=== PATIENT | female | born 1940 | race Caucasian/White ===

== ENCOUNTER → 2018-08-03 11:31 | Outpatient (BNVA) | payer MEDICARE, MEDICAID, SELFPAY | PROVIDERS: PCP Family Medicine; Visit Provider Orthopaedic Surgery | DX: M19.011 Primary osteoarthritis, right shoulder (principal) | CPT/HCPCS: 20610; 99213; J1040 ==

== ENCOUNTER 2018-11-03 02:07 | Outpatient (CLI) | payer MEDICARE, MEDICAID, SELFPAY ==
[2018-11-03 13:01] LABS: HCT 39.8 % (36.0-46.0); HGB 12.8 g/dL (12.0-15.5); Mean Corp. HGB Concentration 32.2 g/dL (32.0-36.0); Mean Corpuscular Hemoglobin 34.9 pg (27.0-33.0); Mean Corpuscular Volume 108.4 fL (80-95); Mean Platelet Volume 9.2 fL (8.0-11.0); Platelet Count 295 x1000/uL (130-400); RBC 3.67 m/cumm (4.00-5.20); RBC Distribution Width 11.7 % (11.7-14.6); White Blood Cell Count 8.64 k/cumm (4.4-10.8)
[2018-11-03 13:39] LABS: ALT 26 U/L (12-78); AST 18 U/L (15-37); Alkaline Phosphatase 67 U/L (46-116); Anion Gap 7.2 mmol/L (3-11); BUN 23 mg/dL (7-18); Bilirubin, Total 1.3 mg/dL (0.2-1.0); CO2 29.8 mmol/L (21.0-32.0); CREATININE 0.81 mg/dL (0.55-1.02); Calcium 9.3 mg/dL (8.5-10.1); Chloride 105 mmol/L (98-107); Glucose 94 mg/dL (70-100); Sodium 142 mmol/L (136-145); TSH (W/Ref FT4) 0.95 uIU/mL (0.358-3.74); Vitamin B12 361 pg/mL (193-986)
== END 2018-11-03 02:27 ==
PROVIDERS: PCP Family Medicine; Visit Provider Family Medicine
DX: E55.9 Vitamin D deficiency, unspecified (principal); R53.1 Weakness; E78.5 Hyperlipidemia, unspecified; I10 Essential (primary) hypertension; I63.9 Cerebral infarction, unspecified
CPT/HCPCS: 36415; 80053; 82306; 85027; 82607; 84443

== ENCOUNTER → 2018-11-05 13:02 | Outpatient (BNVA) | payer MEDICARE, MEDICAID, SELFPAY | PROVIDERS: PCP Family Medicine; Referring Provider Family Medicine; Visit Provider Orthopaedic Surgery | DX: M19.011 Primary osteoarthritis, right shoulder (principal); I10 Essential (primary) hypertension | CPT/HCPCS: 20610; 99211; 99213; J1040 ==

== ENCOUNTER 2018-12-25 00:55 | Outpatient (CLI) | payer MEDICARE, MEDICAID, SELFPAY ==
[2018-12-25 11:25] LABS: HCT 38.1 % (36.0-46.0); HGB 12.4 g/dL (12.0-15.5); Mean Corp. HGB Concentration 32.5 g/dL (32.0-36.0); Mean Corpuscular Hemoglobin 35.5 pg (27.0-33.0); Mean Corpuscular Volume 109.2 fL (80-95); Mean Platelet Volume 8.9 fL (8.0-11.0); Platelet Count 324 x1000/uL (130-400); RBC 3.49 m/cumm (4.00-5.20); White Blood Cell Count 7.61 k/cumm (4.4-10.8)
[2018-12-25 11:29] LABS: Bilirubin Negative (Negative); Blood Negative (Negative); Clarity Cloudy; Glucose Negative (Negative); Ketones Trace mg/dL (Negative); Leukocyte Esterase Negative (Negative); Nitrite Negative (Negative); Specific Gravity >= 1.030 (1.005-1.025); Urobilinogen 0.2 EU/dL (Up TO 0.2); pH 5.5 (5-8)
[2018-12-25 11:38] LABS: ALT 29 U/L (12-78); AST 17 U/L (15-37); Albumin 3.7 g/dL (3.4-5.0); Alkaline Phosphatase 65 U/L (46-116); Anion Gap 9.5 mmol/L (3-11); BUN 26 mg/dL (7-18); Bilirubin, Total 1.3 mg/dL (0.2-1.0); CO2 29.5 mmol/L (21.0-32.0); CREATININE 0.98 mg/dL (0.55-1.02); Calcium 9.1 mg/dL (8.5-10.1); Chloride 106 mmol/L (98-107); Estimated GFR 55.03 (mL/min/1.73m2); Glucose 103 mg/dL (70-100); Magnesium 2.1 mg/dL (1.8-2.4); Potassium 3.5 mmol/L (3.5-5.1); Sodium 145 mmol/L (136-145)
[2018-12-25 11:42] LABS: Epithelial Cells Moderate HPF (Negative); RBC Negative (0-2); WBC 0-2 HPF (0-5)
[2018-12-25 11:43] LABS: Bacteria Rare HPF (Negative)
[2018-12-25 11:44] LABS: C & S Indicated? No; Casts Negative LPF (Negative); Crystals Mod Calcium Oxalate HPF (Negative); Mucus Moderate (Negative)
[2018-12-25 12:03] LABS: Folate > 20.0 ng/mL (8.6-20.0); Vitamin B12 347 pg/mL (193-986)
[2018-12-25 12:20] LABS: ESR 29 MM/HR (0-30)
== END 2018-12-25 01:15 ==
PROVIDERS: Family Medicine; PCP Family Medicine; Visit Provider Family Medicine
DX: I10 Essential (primary) hypertension (principal); R51 Headache; D75.89 Other specified diseases of blood and blood-forming organs; Z86.59 Personal history of other mental and behavioral disorders
CPT/HCPCS: 36415; 80053; 85027; 85652; 81003; 81015; 82607; 82746; 83735

== ENCOUNTER 2019-01-25 01:28 | Outpatient (CLI) | payer MEDICARE, MEDICAID, SELFPAY ==
--- NOTE | 2019-01-25 13:14 | DI.RAD_ITS ---
SYMPTOM/DIAGNOSIS: LOW BACK PAIN, S/P FALL ,M54.5 SACRUM AND COCCYX: Comparison is made with lumbar spine dated 11/08/16. The sacrum is partially obscured by overlying bowel gas and stool. On the lateral view, there is a question of a fracture at the distal sacrum at the sacrococcygeal junction. The SI joints appear intact. IMPRESSION: Question of a distal sacral fracture. LUMBAR SPINE: Comparison is made with 11/08/16. No compression fractures are seen. There is stable severe disc space narrowing from L 2-3 through L 5-S 1. There are stable L 4-5 spondylolisthesis secondary to facet degenerative changes. A right hip prosthesis is noted. IMPRESSION: Stable degenerative changes from L 2-3 through L 5-S 1.
== END 2019-01-25 01:48 ==
PROVIDERS: PCP Family Medicine; Visit Provider Nurse Practitioner Family
DX: M54.5 Low back pain (principal); M51.37 Other intervertebral disc degeneration, lumbosacral region; M53.3 Sacrococcygeal disorders, not elsewhere classified; Z96.641 Presence of right artificial hip joint
CPT/HCPCS: 72110; 72220

== ENCOUNTER → 2019-01-28 10:58 | Outpatient (BNVA) | payer MEDICARE, MEDICAID, SELFPAY | PROVIDERS: PCP Family Medicine; Referring Provider Family Medicine; Visit Provider Orthopaedic Surgery | DX: M17.11 Unilateral primary osteoarthritis, right knee (principal); M17.12 Unilateral primary osteoarthritis, left knee; I10 Essential (primary) hypertension; M19.011 Primary osteoarthritis, right shoulder | CPT/HCPCS: 20610; 99211; 99213; J1040 ==

== ENCOUNTER → 2019-02-11 12:57 | Outpatient (BNVA) | payer MEDICARE, MEDICAID, SELFPAY | PROVIDERS: PCP Family Medicine; Referring Provider Family Medicine; Visit Provider Orthopaedic Surgery | DX: M19.011 Primary osteoarthritis, right shoulder (principal) | CPT/HCPCS: 20610; 99211; 99212; J1040 ==

== ENCOUNTER → 2019-05-11 10:49 | Outpatient (BNVA) | payer MEDICARE, MEDICAID, SELFPAY | PROVIDERS: PCP Family Medicine; Referring Provider Family Medicine; Visit Provider Orthopaedic Surgery | DX: M75.81 Other shoulder lesions, right shoulder (principal); M19.011 Primary osteoarthritis, right shoulder; I10 Essential (primary) hypertension | CPT/HCPCS: 20610; 99211; 99213; J1040 ==

== ENCOUNTER 2019-06-16 09:22 | Emergency (ER) | payer MEDICARE, MEDICAID, SELFPAY ==
[2019-06-16] VITALS (27 sets, daily range): BP systolic 126–161; BP diastolic 53–90; PULSE 55–74; RESP 10–23; TEMP 36.6; O2SAT 90–97
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
[2019-06-16 09:59] LABS: Abs Immature Grans 0.02 k/cumm (0.0-0.09); Absolute Basophil Count 0.04 k/cumm (0.0-0.2); Absolute Eosinophil Count 0.34 k/cumm (0.0-0.7); Absolute Monocyte Count 0.81 k/cumm (0.11-0.7); Absolute Neutrophil Count 7.53 k/cumm (1.2-6.7); Basophils % 0.4; Eosinophils % 3.3; HCT 36.9 % (36.0-46.0); HGB 11.7 g/dL (12.0-15.5); Immature Grans % 0.2; Lymphocytes % 16.3; Mean Corp. HGB Concentration 31.7 g/dL (32.0-36.0); Mean Corpuscular Hemoglobin 34.9 pg (27.0-33.0); Mean Corpuscular Volume 110.1 fL (80-95); Mean Platelet Volume 8.7 fL (8.0-11.0); Monocytes % 7.8; Platelet Count 283 x1000/uL (130-400); RBC 3.35 m/cumm (4.00-5.20); RBC Distribution Width 11.4 % (11.7-14.6); White Blood Cell Count 10.44 k/cumm (4.4-10.8)
[2019-06-16] MEDS: Acetaminophen 500 MG TAB 1000 MG PO (10:04)
[2019-06-16 10:12] LABS: Diff Comment RBC Morph Reviewed; Macrocytosis 3+; Poikilocytes 1+
[2019-06-16 10:25] LABS: INR 0.9 (0.9-1.1); PTT Activated 24.1 sec (21.0-31.4); Prothrombin Time 9.2 sec (9.3-11.0)
[2019-06-16 10:29] LABS: ALT 20 U/L (12-78); AST 10 U/L (15-37); Albumin 3.3 g/dL (3.4-5.0); Alkaline Phosphatase 67 U/L (46-116); Anion Gap 8.2 mmol/L (3-11); BUN 20 mg/dL (7-18); Bilirubin, Total 1.1 mg/dL (0.2-1.0); CO2 27.8 mmol/L (21.0-32.0); CREATININE 0.73 mg/dL (0.55-1.02); Chloride 105 mmol/L (98-107); Glucose 99 mg/dL (70-100); Potassium 3.9 mmol/L (3.5-5.1); Sodium 141 mmol/L (136-145); Total Protein 7.1 g/dL (6.4-8.2)
[2019-06-16 10:33] LABS: Troponin I < 0.05 ng/mL (0.00-0.06)
[2019-06-16 11:20] LABS: Lipase 61 U/L (73-393)
--- NOTE | 2019-06-16 11:37 | DI.CT_ITS ---
SYMPTOMS/DIAGNOSIS: RIGHT SHOULDER PAIN THAT RADIATES TO BACK CT ANGIOGRAPHY OF THE CHEST: CT angiography was performed with multi slice acquisition and multi planar and 3D reconstruction. The thoracic aorta is intact. No evidence of aneurysm or dissection. The heart size is within normal limits. No significant pericardial effusion is seen. No evidence of right ventricular dysfunction is present. Coronary artery calcifications are seen. There is no evidence of a pulmonary embolus. No evidence of thoracic adenopathy, pleural effusion or pneumothorax is identified. No focal consolidating infiltrates are seen in the lungs. The tracheobronchial tree is unremarkable. No acute findings are seen in the upper abdominal images. A simple 3.2 cm cyst is seen in the upper pole of the left kidney. No acute fracture is seen in the thoracic spine. Degenerative changes are present throughout the spine. IMPRESSION: 1. No evidence of thoracic aortic aneurysm or dissection. 2. No evidence of a pulmonary embolus. 3. No acute pulmonary process. The findings were discussed with the Emergency Department on the date of the examination.
[2019-06-16] MEDS: Omnipaque 350 MG/ML 100 ML BTL IJ (11:41)
[2019-06-16] MEDS: Normal Saline Flush 10 ML SYR IVP (11:42)
== END 2019-06-16 12:45 | disposition home or self-care (01) ==
PROVIDERS: Emergency Provider Student in an Organized Health Care Education/Training Program; PCP Family Medicine
DX: M25.511 Pain in right shoulder (principal); G89.18 Other acute postprocedural pain; D53.9 Nutritional anemia, unspecified; I10 Essential (primary) hypertension
CPT/HCPCS: 36415; 71275; 80053; 83690; 93005; 99285; 84484; 85025; 85610; 85730; 93010; J3490

== ENCOUNTER → 2019-07-08 13:19 | Outpatient (BNVA) | payer MEDICARE, MEDICAID, SELFPAY | PROVIDERS: PCP Family Medicine; Referring Provider Family Medicine; Visit Provider Orthopaedic Surgery | DX: M17.12 Unilateral primary osteoarthritis, left knee (principal); M17.11 Unilateral primary osteoarthritis, right knee; I10 Essential (primary) hypertension | CPT/HCPCS: 20610; 99211; 99213; J1040 ==

== ENCOUNTER 2019-08-05 08:45 | Emergency (ER) | payer MEDICARE, MEDICAID, SELFPAY ==
[2019-08-05 09:00] VITALS: BP 172/82; PULSE 62; RESP 18; TEMP 36.5; O2SAT 96
--- NOTE | 2019-08-05 09:04 | DI.RAD_ITS ---
SYMPTOM/DIAGNOSIS: PAIN THORACIC SPINE: 08/05 Three views were obtained. There is loss of intervertebral disc height throughout the thoracic region. Moderate hypertrophic spurring of the vertebral end plates noted throughout. There is no evidence of acute fracture.
--- NOTE | 2019-08-05 09:04 | DI.RAD_ITS ---
SYMPTOM/DIAGNOSIS: PAIN RIGHT SHOULDER: 08/05 Four views were obtained. There is marked loss of the cartilaginous joint space of the glenohumeral joint with marked subchondral sclerosis and very prominent osteophyte formation of the glenoid and the humeral head. There are mild hypertrophic degenerative changes of the acromioclavicular joint. There is no evidence of an acute facture or dislocation.
--- NOTE | 2019-08-05 09:04 | DI.RAD_ITS ---
SYMPTOM/DIAGNOSIS: PAIN RIGHT ELBOW: 08/05 Three views were obtained. There are degenerative changes of the joints of the elbow. No true lateral view obtained to evaluate the presence or absence of joint effusion. No gross fracture identified on the films obtained. If there is a high clinical suspicion of fracture additional films or CT should be considered.
--- NOTE | 2019-08-05 09:04 | DI.RAD_ITS ---
SYMPTOM/DIAGNOSIS: PAIN PORTABLE AP AND LATERAL CHEST: 08/05 The heart is at the upper limits of normal in size. The lungs are grossly clear and well expanded. No pleural effusion seen. CONCLUSION: No evidence of acute process.
[2019-08-05 09:29] LABS: Abs Immature Grans 0.02 k/cumm (0.0-0.09); Absolute Basophil Count 0.04 k/cumm (0.0-0.2); Absolute Eosinophil Count 0.27 k/cumm (0.0-0.7); Absolute Lymphocyte Count 1.57 k/cumm (1.2-3.4); Absolute Monocyte Count 0.65 k/cumm (0.11-0.7); Absolute Neutrophil Count 5.02 k/cumm (1.2-6.7); Basophils % 0.5; Eosinophils % 3.6; HGB 11.6 g/dL (12.0-15.5); Immature Grans % 0.3; Lymphocytes % 20.7; Mean Corp. HGB Concentration 32.2 g/dL (32.0-36.0); Mean Corpuscular Hemoglobin 35.4 pg (27.0-33.0); Mean Corpuscular Volume 109.8 fL (80-95); Monocytes % 8.6; Neutrophils % 66.3; Platelet Count 276 x1000/uL (130-400); RBC 3.28 m/cumm (4.00-5.20); White Blood Cell Count 7.57 k/cumm (4.4-10.8)
[2019-08-05 09:45] LABS: ALT 30 U/L (14-59); AST 14 U/L (15-37); Albumin 3.3 g/dL (3.4-5.0); Alkaline Phosphatase 57 U/L (46-116); Anion Gap 6.9 mmol/L (3-11); BUN 31 mg/dL (7-18); Bilirubin, Total 1.2 mg/dL (0.2-1.0); CO2 29.1 mmol/L (21.0-32.0); CREATININE 0.84 mg/dL (0.55-1.02); Calcium 8.9 mg/dL (8.5-10.1); Chloride 106 mmol/L (98-107); Diff Comment RBC Morph Reviewed; Glucose 98 mg/dL (70-100); Macrocytosis 3+; Potassium 4.3 mmol/L (3.5-5.1); Sodium 142 mmol/L (136-145); Total Protein 6.8 g/dL (6.4-8.2)
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
[2019-08-05] MEDS: Acetaminophen 500 MG TAB 1000 MG PO (10:32)
[2019-08-05 10:50] VITALS: BP 158/94; PULSE 63; RESP 18; TEMP 36.5; O2SAT 96
== END 2019-08-05 10:51 | disposition home or self-care (01) ==
PROVIDERS: Emergency Provider Physician Assistant; PCP Family Medicine
DX: M25.511 Pain in right shoulder (principal); M25.521 Pain in right elbow; M54.6 Pain in thoracic spine; M19.90 Unspecified osteoarthritis, unspecified site; I10 Essential (primary) hypertension
CPT/HCPCS: 36415; 80053; 99284; 71046; 72072; 73030; 73080; 85025; L3650

== ENCOUNTER → 2019-08-10 12:50 | Outpatient (BNVA) | payer MEDICARE, MEDICAID, SELFPAY | PROVIDERS: PCP Family Medicine; Referring Provider Family Medicine; Visit Provider Student in an Organized Health Care Education/Training Program | DX: M19.011 Primary osteoarthritis, right shoulder (principal); M75.101 Unspecified rotator cuff tear or rupture of right shoulder, not specified as traumatic; M24.511 Contracture, right shoulder | CPT/HCPCS: 20610; 99214; J1030 ==

== ENCOUNTER → 2019-10-20 11:14 | Outpatient (BNVA) | payer MEDICARE, MEDICAID, SELFPAY | PROVIDERS: PCP Family Medicine; Referring Provider Family Medicine; Visit Provider Student in an Organized Health Care Education/Training Program | DX: M24.511 Contracture, right shoulder (principal); M75.101 Unspecified rotator cuff tear or rupture of right shoulder, not specified as traumatic; M19.011 Primary osteoarthritis, right shoulder; Z98.890 Other specified postprocedural states | CPT/HCPCS: 99214 ==

== ENCOUNTER 2019-11-08 00:42 | Outpatient (CLI) | payer MEDICARE, MEDICAID, SELFPAY ==
--- NOTE | 2019-11-08 15:00 | DI.CT_ITS ---
EXAM: CT UPPER EXTREMITY RT WO CLINICAL HISTORY: Right shoulder DJD, primary OA, rt rotator cuff tear, contracture rt shoulder TECHNIQUE: Noncontrast according to the [facility] VIP protocol for surgical planning. COMPARISON: XR shoulder RT complete 2+V from 08/05/2019 FINDINGS: Severe degenerative changes of the glenohumeral joint are again demonstrated
== END 2019-11-08 01:02 ==
PROVIDERS: PCP Family Medicine; Visit Provider Physician Assistant
DX: M19.011 Primary osteoarthritis, right shoulder (principal); M24.511 Contracture, right shoulder; M75.101 Unspecified rotator cuff tear or rupture of right shoulder, not specified as traumatic
CPT/HCPCS: 73200

== ENCOUNTER → 2019-11-23 09:57 | Outpatient (BNVA) | payer MEDICARE, MEDICAID, SELFPAY | PROVIDERS: PCP Family Medicine; Referring Provider Family Medicine; Visit Provider Student in an Organized Health Care Education/Training Program | DX: M24.511 Contracture, right shoulder (principal); M19.011 Primary osteoarthritis, right shoulder; M75.101 Unspecified rotator cuff tear or rupture of right shoulder, not specified as traumatic | CPT/HCPCS: 99214 ==

== ENCOUNTER → 2019-12-02 07:48 | Outpatient (BNVA) | payer MEDICARE, MEDICAID, SELFPAY | PROVIDERS: PCP Family Medicine; Referring Provider Family Medicine; Visit Provider Student in an Organized Health Care Education/Training Program | DX: R69 Illness, unspecified (principal) ==

== ENCOUNTER 2019-12-02 10:52 | Day surgery (SDC) | payer MEDICARE, MEDICAID, SELFPAY ==
[2019-12-02] VITALS (10 sets, daily range): BP systolic 111–163; BP diastolic 56–78; PULSE 74–79; RESP 14–24; TEMP 36.2–37; O2SAT 91–96
[2019-12-02] MEDS: Lactated Ringers 1,000 ML 100 ML IV ×2 (11:37→13:57)
[2019-12-02 11:54] LABS: HCT 37.7 % (36.0-46.0); HGB 11.9 g/dL (12.0-15.5); Mean Corp. HGB Concentration 31.6 g/dL (32.0-36.0); Mean Corpuscular Hemoglobin 34.4 pg (27.0-33.0); Mean Platelet Volume 8.8 fL (8.0-11.0); Platelet Count 342 x1000/uL (130-400); RBC 3.46 m/cumm (4.00-5.20); RBC Distribution Width 11.6 % (11.7-14.6); White Blood Cell Count 7.95 k/cumm (4.4-10.8)
[2019-12-02 11:55] LABS: ALT 17 U/L (14-59); AST 16 U/L (15-37); Albumin 3.8 g/dL (3.4-5.0); Alkaline Phosphatase 72 U/L (46-116); BUN 32 mg/dL (7-18); Bilirubin, Total 1.3 mg/dL (0.2-1.0); CREATININE 0.73 mg/dL (0.55-1.02); Calcium 9.4 mg/dL (8.5-10.1); Chloride 105 mmol/L (98-107); Glucose 104 mg/dL (74-106); Potassium 4.2 mmol/L (3.5-5.1); Sodium 143 mmol/L (136-145); Total Protein 7.5 g/dL (6.4-8.2)
[2019-12-02 12:10] LABS: Prothrombin Time 9.9 sec (9.3-11.0)
[2019-12-02] MEDS: Bupivacaine LIPOSOME/PF 133 MG/10 ML VIAL IJ (12:40)
[2019-12-02] MEDS: Bupivacaine 0.5% Pres-Free 30 ML VIAL (12:40)
--- NOTE | 2019-12-02 14:19 | W.PM.DSUDISC ---
Discharge Plan Disposition Patient Disposition: HOME Condition: Stable Discharge Details Reason For Visit: SHOULDER Admit Date/Time: 12/02/19 10:52 Admit Provider: Obey Fernandez Attending Provider: Obey Fernandez Primary Care Provider: Amanda Foreman Hospital Course Hospital Course: Patient admitted for anticipated right shoulder replacement surgery however vital signs especially blood pressure were labile. After multiple attempts to position the patient for surgery, the decision was made to cancel elective surgery today. I discussed the situation with the patient's daughter who is very agreeable to taking a conservative, safe route of action at this time. Plan to recover the patient in the PACU in the day surgery unit and if she is hemodynamically stable and cognitively appropriate, we will discharge her home with her family. Home Meds and New Rx's Prescriptions: Continued aspirin [Ecotrin Low Strength] 81 MG tablet,delayed release (DR/EC) 1 tab PO HS RF: 0 ascorbic acid (vitamin C) [Vitamin C] 500 MG tablet 1 tab PO DAILY RF: 0 vitamin E 400 UNIT capsule 1 cap PO DAILY RF: 0 calcium carb-mag oxide-zinc ox 1 EACH tablet 1 ea PO DAILY RF: 0 vitamin B complex 1 EACH tablet 1 ea PO DAILY RF: 0 Bi-flex 1 tab PO DAILY RF: 0 cholecalciferol (vitamin D3) 5,000 unit capsule 1,000 unit PO DAILY Qty: 120 RF: 3 losartan 100 mg tablet 100 mg PO HS Qty: 90 RF: 4 citalopram 20 mg tablet 20 mg PO HS Qty: 90 RF: 12 multivitamin [Daily Multi-Vitamin] 1 EACH tablet 1 ea PO DAILY RF: 0 Fish Oil 1 EACH capsule 1 ea PO DAILY RF: 0 ibuprofen 200 MG capsule 400 mg PO PRN PRNRF: 0 pravastatin 40 mg tablet 80 mg PO HS RF: 0 lidocaine [Lidoderm] 1 PATCH patch 1 patch Topical Q24H Qty: 4 RF: 0 Discharge Instructions Additional Instructions: Unfortunately patient is now too high risk to proceed with shoulder replacement surgery here at [facility]. We will provide referral to Dr. Phil Gaines at [facility]. Thank you for your understanding. Referrals: Obey Fernandez MD [ [facility] STAFF PHYSICIAN] - Activity:: Activity as Tolerated Equipment/Supplies:: No Equipment Needed Diet:: As Tolerated Discharge Orders Discharge Orders: Discharge Order (Routine); Ordered 12/02/19 Ordered By: Obey Fernandez DS: Diagnosis Discharge Diagnosis (1) Primary osteoarthritis, right shoulder: Status: Acute (2) Rotator cuff tear, right: Status: Acute (3) Contracture of right shoulder: Status: Acute
--- NOTE | 2019-12-02 15:15 | W.PM.OP ---
Date of service: 12/02/19 Time of Service: 14:25 Operative Note Operative Note DATE OF PROCEDURE: 12/02/19 PRE-OP DIAGNOSIS: 1. Right shoulder arthritis 2. Right shoulder contracture 3. Right long head of the biceps tendinopathy POST-OP DIAGNOSIS: same PROCEDURE: 1. Exam under anesthesia right shoulder SURGEON: Obey Fernandez ASSISTING SURGEON: Cale Jauregui ANESTHESIA: GETA and regional Patient was transported to: PACU Patient's condition: stable Procedure Description: The patient was taken to the operating room and transferred to the operating room table. Regional anesthesia had been induced in the holding area. General anesthesia was induced. All bony prominences were well-padded. Preoperative antibiotics were not yet administered. I examined the patient's right shoulder under general anesthesia. External rotation was 0 degrees. Forward flexion was 75 degrees. Abduction 75 degrees. Internal rotation to her sacrum. Unfortunately, the patient's blood pressure was quite labile systolic ranging from 80s-200s during positioning from supine to 45 degree beachchair position. It was unable to be corrected with repeat gradual positioning attempts and medications. Decision was made to cancel the planned open procedure. The patient awoke from anesthesia without complication and was transferred to recovery in stable condition. Cardiac monitoring was negative for any ST changes. The patient was examined in the recovery room and found to be awake, alert and mentating at her baseline cognitive impairment level. Cranial nerves II-XII grossly intact, patient moving all extremities well except for the right upper extremity due to the nerve block. Patient denies any headache, chest pain, or trouble breathing. She voices understanding but is deeply disappointed that her shoulder replacement could not be performed today. I discussed the situation at length with the patient'd daughter who expresses good understanding and agrees with the treatment plan to recover her mother and discharge her home today from the day surgery unit as long as she remains stable and mentating appropriately. I will provide referral to Dr. Gaines at [facility] for surgical consideration.
--- NOTE | 2019-12-03 09:41 | PT.INNT ---
Date of service: 12/03/19 Time of Service: 09:41 PT Notes Visit Reasons: R SHOULDER ARTHRITIS Patient's scheduled shoulder replacement surgery was cancelled by Dr. Fernandez due to unstable blood pressure. No skilled services were provided. Thank you very much for this referral. Maribel Michelle PT, DPT, CLT [facility] Inpatient PT at [facility]
== END 2019-12-02 17:35 | disposition home or self-care (01) ==
LOC: PDS 17:09 → DSU 12-14 08:59
PROVIDERS: PCP Family Medicine; Visit Provider Student in an Organized Health Care Education/Training Program
PROC: (CPT 23470; principal; 2019-12-02 13:00)
DX: M19.011 Primary osteoarthritis, right shoulder (principal); Z53.09 Procedure and treatment not carried out because of other contraindication; I10 Essential (primary) hypertension; M24.511 Contracture, right shoulder; M75.21 Bicipital tendinitis, right shoulder; M25.511 Pain in right shoulder
CPT/HCPCS: 23700; 36415; 76942; 80053; 85027; 86850; 86900; 86901; 85610; J2001; J2250; J2405; J3010; L3650

== ENCOUNTER → 2019-12-15 10:24 | Outpatient (BNVA) | payer MEDICARE, MEDICAID, SELFPAY | PROVIDERS: PCP Family Medicine; Referring Provider Family Medicine; Visit Provider Student in an Organized Health Care Education/Training Program | DX: M19.011 Primary osteoarthritis, right shoulder (principal); M24.511 Contracture, right shoulder; M75.101 Unspecified rotator cuff tear or rupture of right shoulder, not specified as traumatic | CPT/HCPCS: 20610; 99214; J1040 ==

== ENCOUNTER 2020-06-13 07:21 | Outpatient (CLI) | payer MEDICARE, MEDICAID, SELFPAY ==
--- NOTE | 2020-06-13 07:45 | DI.RAD_ITS ---
EXAM: XR SHOULDER RT COMPLETE 2+V CLINICAL HISTORY: Posterior right shoulder pain since fall,[id number]. TECHNIQUE: 2D digital imaging was performed. COMPARISON: CR XR shoulder RT complete 2+V from 08/05/2019 FINDINGS: There are marked degenerative changes of the right glenohumeral joint characterized by loss of the skyler int space, subchondral sclerosis and cysts, and osteophytes arising from both the femoral head and th e glenoid. Mild degenerative changes are seen at the acromioclavicular joint. No acute fracture or dislocation is present. The soft tissues are unremarkable. IMPRESSION: Marked degenerative changes of the right shoulder. DATA REPOSITORY: RADIATION DOSE DELIVERED:
== END 2020-06-13 07:41 ==
PROVIDERS: PCP Family Medicine; Visit Provider Nurse Practitioner Family
DX: M25.511 Pain in right shoulder (principal); M19.011 Primary osteoarthritis, right shoulder; W19.XXXA Unspecified fall, initial encounter
CPT/HCPCS: 73030

== ENCOUNTER 2020-06-16 15:52 | Emergency (ER) | payer MEDICARE, MEDICAID, SELFPAY ==
[2020-06-16 16:02] VITALS: BP 147/84; PULSE 91; RESP 18; TEMP 36.7; O2SAT 95
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
[2020-06-16] MEDS: Bupivacaine 0.5% Pres-Free 30 ML VIAL (17:41)
[2020-06-16] MEDS: Triamcinolone 40 MG/ML VIAL IM (17:41)
== END 2020-06-16 18:17 | disposition home or self-care (01) ==
PROVIDERS: Emergency Provider Physician Assistant; PCP Family Medicine
DX: M19.011 Primary osteoarthritis, right shoulder (principal); M75.01 Adhesive capsulitis of right shoulder; I10 Essential (primary) hypertension
CPT/HCPCS: 20610; 96372

== ENCOUNTER → 2020-06-28 13:47 | Outpatient (BNVA) | payer MEDICARE, MEDICAID, SELFPAY | PROVIDERS: PCP Family Medicine; Referring Provider Family Medicine; Visit Provider Student in an Organized Health Care Education/Training Program | DX: M19.011 Primary osteoarthritis, right shoulder (principal); I10 Essential (primary) hypertension | CPT/HCPCS: 99214 ==

== ENCOUNTER 2020-08-21 01:17 | Outpatient (CLI) | payer MEDICARE, MEDICAID, SELFPAY ==
--- NOTE | 2020-08-21 07:00 | DI.NM_ITS ---
APPROVED REPORT Exam: Pharmacologic Patient Location: Out-Patient Room/Bed: Stress Nurse: Magali Vogt RN BMI: 27.45 Baseline Rhythm: Sinus Rhythm Indications: Pre-Operative CV Evaluation, CAD Medical History Medical History: CAD non obstructive, Depression, HTN, Hyperlipidemia, Stroke/TIA, Weakness Cardiac Medications: Aspirin, Fish Oil , Losartan, Nisoldipine/ Sular, Pravastatin/ Pravachol Allergies: simvastatin, sulfa, ammoxicillin, augmentin Cardiac Risk Factors: HTN, Hyperlipidemia, FHX of CAD, CVD Pretest Chest Pain Characteristics: No chest pain Exercise History: Sedentary, Sedentary Physical Disabilities: Hips, Back, Knees Lung Sounds: Clear to auscultation Heart Sounds: Regular Stress Test Details Test: Pharmacologic stress testing performed using 0.4 mg of regadenoson per 5 mL given IV over 10 s econds. Nuclear Acquisition: Rest Tc-99m/Stress Tc-99m 1 day Rest Isotope: Tc-99m Sestamibi. Dose: 10.5 Date: 08/21/2020 Injection Time: 0900 Stress Isotope: Tc-99m Sestamibi. Dose: 33.0 Date: 08/21/2020 Injection Time: 1022 HR Resting HR Supine: 70 bpm Max Heart Rate (APMHR): 142 bpm Target HR (85% APMHR): 120 bpm Max HR Achieved: 91 bpm % of APMHR: 64 Recovery HR: 81 bpm HR response to stress: Normal HR response to stress BP Resting BP Supine: 158/98 mmHg Max BP: 166/98 mmHg Recovery BP: 164/90 mmHg BP response to stress: Abnormal hypertensive response to stress. ECG Resting ECG: Sinus Rhythm Stress ECG: Sinus Rhythm ST Change: Normal Maximum ST Deviation: 0.6 mm Arrhythmia: None Recovery ECG: Sinus Rhythm Recovery ST Change: Normal Recovery Arrhythmia: None Clinical Reason for Termination: vs returned to baseline Stress Symptoms: Dizziness, Headache Exercise duration: 06 min03 sec Exercise capacity: 1 METs Stress ECG Conclusion 1. This is a pharmacological stress test. 2. Patient no symptoms suggestive of ischemia 3. The EKG portion of this exam is nondiagnostic. Critical Notification Critical Value: No MPI Conclusion The patient's ejection fraction was 63% with stress. There were no wall motion abnormalities. A lot of bowel attenuation affects the sensitivity of this test but there is no evidence of significa nt ischemia or infarct. This represents a normal SPECT stress test. Radiologist Interpretation Radiologist agrees with Laboratory Administrative Director's Interpretation. Radiologist Interpretation by: Rae Whitfield MD Interpretation Date/Time: 08/22/2020 14:05:43
[2020-08-21] MEDS: Regadenoson 0.4 MG/5 ML SYR IVP (10:46)
== END 2020-08-21 01:37 ==
PROVIDERS: PCP Family Medicine; Visit Provider Family Medicine
DX: I25.10 Atherosclerotic heart disease of native coronary artery without angina pectoris (principal); Z01.818 Encounter for other preprocedural examination; I10 Essential (primary) hypertension; E78.5 Hyperlipidemia, unspecified; Z82.49 Family history of ischemic heart disease and other diseases of the circulatory system
CPT/HCPCS: 78452; 93306; 93017; J2785

== ENCOUNTER 2020-10-06 04:23 | Outpatient (CLI) | payer MEDICARE, MEDICAID, SELFPAY ==
[2020-10-08 10:05] LABS: SARS-CoV-2 RNA Not Detected (NotDetected); SARS-CoV-2 RNA Source Nasal/Nares
== END 2020-10-06 04:43 ==
PROVIDERS: PCP Family Medicine; Visit Provider Family Medicine
DX: Z11.59 Encounter for screening for other viral diseases (principal); Z01.811 Encounter for preprocedural respiratory examination
CPT/HCPCS: U0003

== ENCOUNTER 2020-10-09 13:36 | Outpatient (CLI) | payer MEDICARE, MEDICAID, SELFPAY ==
[2020-10-09] MEDS: Albuterol HFA 18 GM 200 PUFF INH IH (16:43)
[2020-10-09] MEDS: Inhaler, Assist Device 1 EACH MC (16:43)
--- NOTE | 2020-10-12 07:57 | W.PFT ---
Date of service: 10/09/20 Time of Service: 03:49 Pulmonary Function Test Result Interpretation Spirometry: Extremely poor patient effort but shows no evidence of obstruction, no bronchodilator response Lung Volumes: Could not be done, patient could not perform an acceptable plethysmography maneuver Diffusion Capacity: Extremely poor patient effort therefore the results of this test should not be taken into account Airway Pressure: Not done Impression Extremely poor patient effort, there does not appear to be an element of obstruction, cannot comment on diffusion capacity as the effort for that was not an acceptable one. Plethysmography could not be carried out as the patient was unable to carry out an acceptable maneuver. Clinical Correlation therefore is recommended.
== END 2020-10-09 13:56 ==
PROVIDERS: PCP Family Medicine; Visit Provider Nurse Practitioner Family
DX: R06.02 Shortness of breath (principal); Z01.818 Encounter for other preprocedural examination; R06.09 Other forms of dyspnea
CPT/HCPCS: 94060; 94729

== ENCOUNTER 2021-05-24 03:15 | Outpatient (CLI) | payer MEDICARE, MEDICAID, SELFPAY ==
--- NOTE | 2021-05-24 10:57 | DI.RAD_ITS ---
Exam(s) XR SHOULDER LT COMPLETE 2+V EXAM: XR SHOULDER LT COMPLETE 2+V CLINICAL HISTORY: fall with shoulder pain - left, M25.519. TECHNIQUE: 2D digital imaging was performed. COMPARISON: CR XR SHOULDER RT COMPLETE 2+V from 06/13/2020 FINDINGS: Multiple views of the left shoulder reveal no evidence of fracture or dislocation. However, there ar e significant advanced osteoarthritic degenerative changes evident in the glenohumeral joint with adv anced joint space narrowing and osteophyte on the inferior articular surface of the humeral head. Mo derate degenerative changes are also noted in the ipsilateral AC joint. There is osteopenia subjacent to the osseous glenoid. In addition, there are 3 calcific densities se en in subcoracoid region. These may represent loose intra-articular bodies. IMPRESSION: DATA REPOSITORY: RADIATION DOSE DELIVERED:
--- NOTE | 2021-05-24 10:57 | DI.RAD_ITS ---
Exam(s) XR HUMERUS LT EXAM: XR HUMERUS LT CLINICAL HISTORY: left arm pain, M79.603. TECHNIQUE: 2D digital imaging was performed. COMPARISON: No exams were available for comparison FINDINGS: No evidence of humerus fracture. However, there are advanced degenerative osteoarthritic narrowing c hanges in the glenohumeral joint. Also osteophyte on the inferior articular surface of the humeral h ead. Also downgoing osteophytes off the ipsilateral AC joint. No osseous lesions. Bone density in the humerus is age-appropriate. IMPRESSION: DATA REPOSITORY: RADIATION DOSE DELIVERED:
== END 2021-05-24 03:35 ==
PROVIDERS: PCP Family Medicine; Visit Provider Family Medicine
DX: G89.11 Acute pain due to trauma (principal); M25.512 Pain in left shoulder; W19.XXXA Unspecified fall, initial encounter
CPT/HCPCS: 73030; 73060

== ENCOUNTER → 2021-08-01 10:09 | Outpatient (BNVA) | payer MEDICARE, MEDICAID, SELFPAY | PROVIDERS: PCP Family Medicine; Referring Provider Family Medicine; Visit Provider Student in an Organized Health Care Education/Training Program | DX: M25.512 Pain in left shoulder (principal); M19.012 Primary osteoarthritis, left shoulder; Z96.611 Presence of right artificial shoulder joint; M54.9 Dorsalgia, unspecified | CPT/HCPCS: 20610; 99214; J1030 ==

== ENCOUNTER 2021-11-01 17:39 | Outpatient (REF) | payer MEDICARE, MEDICAID, SELFPAY ==
[2021-11-03 18:24] LABS: COVID-19 RT-PCR UVMMC Result Negative (Negative)
== END 2021-11-01 17:40 | disposition home or self-care (01) ==
LOC: LBN 17:39
PROVIDERS: PCP Family Medicine; Visit Provider Physician Assistant
DX: Z20.822 Contact with and (suspected) exposure to COVID-19 (principal)
CPT/HCPCS: U0003

== ENCOUNTER 2021-11-01 18:08 | Inpatient (IN) | payer MEDICARE, MEDICAID, SELFPAY ==
[2021-11-01 18:15] VITALS: BP 185/76; PULSE 71; RESP 16; TEMP 36; O2SAT 96
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
--- NOTE | 2021-11-01 18:45 | DI.CT_ITS ---
Exam(s) CT ABDOMEN PELVIS W EXAM: CT ABDOMEN PELVIS W CLINICAL HISTORY: upper abdominal pain and n/v TECHNIQUE: Imaging Protocol: Axial computed tomography images with coronal and sagittal reformatted images were created and reviewed CONTRAST MATERIAL: Intravenous: Omnipaque 350 Contrast volume:80 mL Oral: No COMPARISON: CT CT THORAX CTA from 06/16/[address] THORAX CTA from 06/16/2019 FINDINGS: ABDOMEN: Lung Bases: Normal where visualized. Coronary artery calcification. Liver: Normal density. No measurable mass. Portal, Superior Mesenteric, and Splenic Veins: Unremarkable. Gallbladder and Biliary Tract: No cholelithiasis. The common duct is within normal limits. There is mild prominence of the intrahepatic bile ducts. Pancreas: Normal density, no abnormal calcifications or inflammatory process. Spleen: Normal. Adrenals: No masses seen. Kidneys: Normal size, contour and axis. No radiodense stones or obstructive uropathy. There are simpl e cysts seen in the left kidney. No follow-up is recommended. Incidental note is made of a retroaor tic left renal vein. Abdominal Aorta: Abdominal portion non-dilated. Atherosclerosis. Bowel: No obstruction or bowel wall thickening. Appendix is unremarkable. There is diverticulosis of the colon, but no evidence of acute diverticulitis. Peritoneal Cavity: No ascites, collection or mesenteric inflammatory response. No free air. Lymph Nodes: Within normal limits. Bones: Within normal limits for the patient's age. Patient has a right total hip replacement. There is grade 2 spondylolisthesis of L4 on L5. Soft Tissues: Unremarkable. PELVIS: Bladder: Symmetric distention, no gross wall thickening. Portions of the urinary bladder obscured by the artifact from the patient's right total hip replacement. Reproductive Organs: Unremarkable as visualized. Lymph Nodes: Within normal limits. Bones: Within normal limits for the patient's age. IMPRESSION: 1. No acute abdominal or pelvic process. 2. Question of mild intrahepatic biliary ductal dilatation. Please correlate with the patient's bili blank. Consider ultrasound or MRCP for further evaluation if clinically indicated. RADIATION DOSE DELIVERED: 1,355.43mGy.cm Total DLP DATA REPOSITORY: All CT scans at this facility are submitted to the National Radiology Data Registry (NRDR) Dose Index Registry (DIR) with the [employer] (ACR). RADIATION OPTIMIZATION: All CT scans at this facility use at least one of these dose optimization te chniques: automated exposure control; mA and/or kV adjustment per patient size (includes targeted exa ms where dose is matched to clinical indication); or iterative reconstruction.
[2021-11-01] MEDS: Normal Saline 1,000 ML 1000 ML IV (19:10)
[2021-11-01 19:15] LABS: Source Nasal/Nares
[2021-11-01] MEDS: Ondansetron 4 MG/2 ML VIAL IVP (19:17)
[2021-11-01 19:19] LABS: Abs Immature Grans 0.05 10^3/uL (0.0-0.06); Absolute Basophil Count 0.06 10^3/uL (0.0-0.2); Absolute Eosinophil Count 0.25 10^3/uL (0.0-0.7); Absolute Neutrophil Count 9.14 10^3/uL (1.2-6.7); Basophils % 0.5; Eosinophils % 2.1; HCT 36.5 % (36.0-46.0); HGB 11.7 g/dL (11.2-15.7); Immature Grans % 0.4; Lymphocytes % 13.3; MCH 35.1 pg (27.0-33.0); MCHC 32.1 % (32.0-36.0); MCV 109.6 fL (80-95); MPV 8.8 fL (8.0-11.0); Monocytes % 7.5; Neutrophils % 76.2; Nucleated RBC 0 %; Platelet Count 306 10^3/uL (130-400); RBC 3.33 10^6/uL (3.93-5.22); RDW 11.7 % (11.7-14.6); RDW-SD 47.5 fL
[2021-11-01 19:20] LABS: Lactate 1.4 mmol/L (0.6-1.4)
[2021-11-01 19:38] LABS: Diff Comment RBC Morph Reviewed; Macrocytosis 2+
[2021-11-01 19:50] LABS: Bilirubin Negative (Negative); Blood Trace-intact (Negative); Clarity Clear (Clear); Glucose Negative (Negative); Ketones Negative (Negative); Leukocyte Esterase Negative (Negative); Nitrite Negative (Negative); Specific Gravity >= 1.030 (1.005-1.025); Urobilinogen 0.2 EU/dL (Up TO 0.2)
[2021-11-01 19:58] LABS: Bacteria Negative HPF (Negative); C & S Indicated? No; Casts Negative LPF (Negative); Crystals Negative HPF (Negative); Epithelial Cells Few HPF (Negative); Mucus Negative (Negative)
[2021-11-01 20:04] LABS: COVID-19 PCR Negative (Negative)
[2021-11-01 20:06] LABS: ALT 21 U/L (14-59); AST 18 U/L (15-37); Albumin 3.8 g/dL (3.4-5.0); Alkaline Phosphatase 73 U/L (46-116); Anion Gap 11.5 mmol/L (3-11); BUN 20 mg/dL (7-18); Bilirubin, Direct 0.2 mg/dL (0.0-0.2); Bilirubin, Total 1.2 mg/dL (0.2-1.0); CO2 25.5 mmol/L (21.0-32.0); CREATININE 0.9 mg/dL (0.55-1.02); Calcium 9.5 mg/dL (8.5-10.1); Chloride 104 mmol/L (98-107); Glucose 104 mg/dL (74-106); Lipase 45 U/L (73-393); Magnesium 2.5 mg/dL (1.8-2.4); Potassium 4.3 mmol/L (3.5-5.1); Sodium 141 mmol/L (136-145); Total Protein 7.6 g/dL (6.4-8.2)
[2021-11-01] MEDS: Omnipaque 350 MG/ML 100 ML BTL IJ (20:27)
[2021-11-01 21:12] VITALS: BP 149/72; PULSE 70; TEMP 36.6; O2SAT 94
--- NOTE | 2021-11-01 21:36 | DI.VRAD_ITS ---
PROCEDURE INFORMATION: Exam: CT Abdomen And Pelvis With Contrast Exam date and time: 11/01/2021 6:57 PM Age: 81 years old Clinical indication: Other: Upper abdominal pain and n/v TECHNIQUE: Imaging protocol: Computed tomography of the abdomen and pelvis with contrast. COMPARISON: CR XR sacrum coccyx 01/25/2019 1:22 PM FINDINGS: Lungs: The visualized portions of the lung bases are normal. Liver: Normal. No mass. Gallbladder and bile ducts: Mild intrahepatic biliary ductal dilatation. The common bile duct is unremarkable and within normal limits in size. The gallbladder is distended but within normal limits in size. No pericholecystic fluid or radiopaque gallstones. Pancreas: Normal. No ductal dilation. Spleen: Normal. No splenomegaly. Adrenal glands: Normal. No mass. Kidneys and ureters: Cortical renal cyst within the upper pole and midpole of the left kidney largest measuring 2.5 cm. Otherwise the kidneys are unremarkable. No hydronephrosis. Stomach and bowel: Moderate diverticulosis is present in the distal colon. Appendix: No evidence of appendicitis. Intraperitoneal space: Unremarkable. No free air. No significant fluid collection. Vasculature: The vasculature demonstrates diffuse moderate atherosclerotic calcification. Lymph nodes: Unremarkable. No enlarged lymph nodes. Urinary bladder: Unremarkable as visualized. Reproductive: Unremarkable as visualized. Bones/joints: Status post total right hip arthroplasty. Multilevel degenerative disc disease throughout the lumbar spine worse at L4-L5 where there is grade 2 anterolisthesis. Soft tissues: Unremarkable. IMPRESSION: 1. Mild intrahepatic biliary ductal dilatation. Please correlate with bilirubin. If high, consider further evaluation with ultrasound and MRCP. 2. Moderate sigmoid diverticulosis. 3. Multilevel degenerative disc disease throughout the lumbar spine worse at L4-L5 where there is grade 2 anterolisthesis. Dictated and Authenticated by: David Bourne MD. Ordering:QUINTEN Kennedy MD
--- NOTE | 2021-11-01 22:00 | RT.EKG_ITS ---
APPROVED REPORT Exam: Resting ECG Reason for Exam: left shoulder pain Patient Location: E HR:73 bpm ECG Measurements Heart Rate 73 AXIS OK 144 P 44 QRSd 90 QRS 19 QT 416 T 55 QTc 458 Conclusion Sinus rhythm...normal P axis, V-rate 60- 99 Physician: no stemi, stable.
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
[2021-11-01 23:01] VITALS: BP 153/75; PULSE 69; RESP 19; TEMP 36.7; O2SAT 94
[2021-11-01] MEDS: Normal Saline 1,000 ML 100 ML IV (23:35)
[2021-11-01] MEDS: LORazepam 0.5 MG TAB PO (23:55)
[2021-11-01] MEDS: Losartan 50 MG TAB 100 MG PO (23:56)
[2021-11-01] MEDS: ACETAMINOPHEN 1,000 MG/100 ML BTL 400 MG IVPB (23:56)
[2021-11-01] MEDS: levoFLOXacin 500 MG/100 ML BAG 100 MG IVPB (23:57)
--- NOTE | 2021-11-02 | DI.MRI_ITS ---
Exam(s) MR ABDOMEN WO/W EXAM: MR ABDOMEN WO/W CLINICAL HISTORY: dilated bile ducts/pancreatic ducts TECHNIQUE: Multiplanar multisequence MRA of the Abdomen was performed. CONTRAST MATERIAL: IV Contrast: 16 mL of Dotare[place] contrast administered. COMPARISON: CT CT ABDOMEN PELVIS W from 11/01/[address] ABDOMEN PELVIS W from 11/01/2021 FINDINGS: The examination is limited due to patient motion artifact. Liver: Unremarkable. Pancreas: There is a 9 mm simple cyst nonenhancing cyst in the head of the pancreas. There is a 5 mm nonenhancing simple cyst seen at the junction of the head and the body of the pancreas. This may co rrespond to the finding seen on the ultrasound no solid pancreatic mass is seen no enhancing pancreat ic lesion is identified. Gallbladder and Bile Ducts: No evidence of cholelithiasis. There is no intra or extrahepatic biliary ductal dilatation. The common duct measures 5 mm. The intrahepatic bile ducts measure less than 3 mm. No evidence of choledocholithiasis. Adrenals: Unremarkable. Kidneys: There are simple left renal cysts. No follow-up is recommended. The largest measures 2.4 c m. Spleen: Unremarkable. Aorta: Unremarkable. Soft Tissues: Unremarkable. Bone: There is a mild left convex curvature of the thoracolumbar spine which may be positional. Lymph Nodes: Unremarkable. IMPRESSION: 1. No intrahepatic or extrahepatic biliary ductal dilatation. 2. No solid pancreatic mass or enhancing pancreatic mass. 3. Two simple nonenhancing cysts seen within the pancreas. DATA REPOSITORY:
[2021-11-02 00:28] VITALS: BP 153/75; PULSE 69; RESP 19; TEMP 36.7; O2SAT 94
[2021-11-02 07:21] LABS: Abs Immature Grans 0.04 10^3/uL (0.0-0.06); Absolute Basophil Count 0.04 10^3/uL (0.0-0.2); Absolute Eosinophil Count 0.34 10^3/uL (0.0-0.7); Absolute Monocyte Count 0.78 10^3/uL (0.1-0.8); Absolute Neutrophil Count 5.67 10^3/uL (1.2-6.7); Basophils % 0.5; HCT 31.7 % (36.0-46.0); Immature Grans % 0.5; Lymphocytes % 19.8; MCH 35.1 pg (27.0-33.0); MCHC 31.5 % (32.0-36.0); MCV 111.2 fL (80-95); MPV 8.5 fL (8.0-11.0); Monocytes % 9.1; Neutrophils % 66.1; Nucleated RBC 0 %; Platelet Count 265 10^3/uL (130-400); RBC 2.85 10^6/uL (3.93-5.22); RDW 11.9 % (11.7-14.6); RDW-SD 48.4 fL; WBC 8.57 10^3/uL (4.4-10.8)
[2021-11-02 07:39] LABS: Diff Comment Diff Reviewed; Macrocytosis 1+
[2021-11-02 07:47] LABS: ALT 15 U/L (14-59); AST 10 U/L (15-37); Alkaline Phosphatase 62 U/L (46-116); Anion Gap 7.7 mmol/L (3-11); BUN 17 mg/dL (7-18); Bilirubin, Total 1.4 mg/dL (0.2-1.0); CO2 25.3 mmol/L (21.0-32.0); Calcium 8.6 mg/dL (8.5-10.1); Chloride 108 mmol/L (98-107); Estimated GFR 53.35 (mL/min/1.73m2); Glucose 90 mg/dL (74-106); Potassium 4.1 mmol/L (3.5-5.1); Sodium 141 mmol/L (136-145); Total Protein 6.3 g/dL (6.4-8.2)
[2021-11-02 08:03] VITALS: BP 128/78; PULSE 71; RESP 17; TEMP 36.8; O2SAT 93
[2021-11-02] MEDS: ACETAMINOPHEN 1,000 MG/100 ML BTL 400 MG IVPB ×3 (08:09→23:52)
--- NOTE | 2021-11-02 09:04 | DI.US_ITS ---
Exam(s) US ABDOMEN LIMITED EXAM: US ABDOMEN LIMITED CLINICAL HISTORY: ruq pain, n/v TECHNIQUE: Ultrasound abdomen performed using standard protocol. COMPARISON: CT CT ABDOMEN PELVIS W from 11/01/[address] ABDOMEN PELVIS W from 11/01/2021 FINDINGS: PANCREAS: There is a question of a 0.9 cm hypoechoic area in the body of the pancreas. LIVER: Normal. Hepatopedal flow in the Portal Vein. The liver measures 15.6 cm long. GALLBLADDER: No evidence of cholelithiasis. No evidence of wall thickening. No pericholecystic fluid identified. BILIARY SYSTEM: Common bile duct measures < 7 mm. No intrahepatic biliary ductal dilation. SCHMITZ'S SIGN: Negative. Right kidney: Right kidney is normal in size. No evidence of renal calculi. No evidence of hydroneph rosis. No renal mass or cyst identified. ASCITES: None seen. IMPRESSION: 1. No evidence of cholelithiasis or biliary ductal dilatation. 2. Question of a 0.9 cm avascular hypoechoic area in the body of the pancreas. There is no correlate on the CT scan from 11/01/2021. An MRI of the abdomen may be obtained for further evaluation. DATA REPOSITORY:
[2021-11-02] MEDS: Escitalopram 20 MG TAB PO (09:30)
[2021-11-02] MEDS: Enoxaparin 40 MG/0.4 ML SYR SC (09:30)
[2021-11-02] MEDS: Lidocaine 5% Patch 1 PATCH TP (09:31)
[2021-11-02] MEDS: Normal Saline 1,000 ML 100 ML IV ×2 (09:52→21:12)
--- NOTE | 2021-11-02 10:26 | W.PM.PROGNOT ---
Date of Service Date of service: 11/02/21 Time of Service: 10:27 Assessment and Plan Assessment and plan (1) Essential hypertension: Status: Acute (2) Anemia: Status: Acute (3) Abdominal pain: Status: Acute Assessment and plan: -Patient clinically today is asymptomatic. Ultrasound was negative Patient has chronic low-grade anemia ERCP -shows no dilated biliary or pancreatic ducts. There is no gallstones or filling defects. The mass in the head the pancreas is x2 simple cysts. Age-related changes. No etiology to explain patient's abdominal pain and nausea. Most likely viral gastroenteritis. Patient is currently asymptomatic and her labs are stable. We will try clear liquids and see how she progresses. (4) Cerebrovascular accident (CVA): Status: Chronic (5) Diverticulosis of colon without diverticulitis: Status: Chronic (6) Hyperlipidemia: Status: Chronic (7) Essential hypertension: Status: Chronic (8) Impaired renal function disorder: Status: Acute (9) History of reverse total replacement of right shoulder joint: Status: Acute (10) Benign cystic neoplasm of exocrine pancreas: Status: Acute (11) Abdominal pain: Status: Acute (12) Nausea and vomiting in adult: Status: Acute Subjective Subjective Interval history since last seen: Patient has no nausea and vomiting today. She has no pain today. no headaches. No CP or SOB. no productive cough. no dysuria. no leg pain or swelling. Patient complaining of pain in left shoulder. However she said this is chronic and nothing new for her. Exam Resp Effort & Inspection: normal respiratory effort and able to speak in complete sentences Auscultation: clear to auscultation bilaterally GI Palpation: soft Auscultation: normal bowel sounds Other: Mild tenderness in the epigastric region Objective Last Vital Signs Temp 36.8 C 11/02/21 08:03 Pulse 71 11/02/21 08:03 Resp 17 11/02/21 08:03 BP 128/78 11/02/21 08:03 Pulse Ox 93 11/02/21 08:03 Laboratory Results - last 24 hr 11/01/21 11/01/21 11/01/21 18:41 19:07 19:07 WBC RBC Hgb Hct MCV MCH MCHC RDW Plt Count MPV Immature Gran % Neutrophils % Lymphocytes % Monocytes % Eosinophils % Basophils % Nucleated RBC % Absolute Neutrophils Absolute Lymphocytes Absolute Monocytes Absolute Eosinophils Absolute Basophils RBC Morphology Macrocytosis VBG Lactate 1.4 Sodium 141 Potassium 4.3 Chloride 104 Carbon Dioxide 25.5 Anion Gap 11.5 H BUN 20 H Creatinine 0.9 Estimated GFR/1.73 m2 >= 60.00 Glucose 104 Calcium 9.5 Magnesium 2.5 H Total Bilirubin 1.2 H Conjugated Bilirubin 0.2 AST 18 ALT 21 Alkaline Phosphatase 73 Total Protein 7.6 Albumin 3.8 Lipase 45 Urine Color Urine Clarity Urine pH Ur Specific [place] Urine Protein Urine Ketones Urine Blood Urine Nitrite Urine Bilirubin Urine Urobilinogen Ur Leukocyte Esterase Urine RBC Urine WBC Ur Epithelial Cells Urine Crystals Urine Bacteria Urine Casts Urine Mucus Ur Culture Indicated? Urine Glucose COVID-19 Source Nasal/Nares SARS-CoV-2 (PCR) Negative 11/01/21 11/01/21 11/02/21 19:07 19:46 07:10 WBC 12.00 H RBC 3.33 L Hgb 11.7 Hct 36.5 MCV 109.6 H MCH 35.1 H MCHC 32.1 RDW 11.7 Plt Count 306 MPV 8.8 Immature Gran % 0.4 Neutrophils % 76.2 Lymphocytes % 13.3 Monocytes % 7.5 Eosinophils % 2.1 Basophils % 0.5 Nucleated RBC % 0 Absolute Neutrophils 9.14 H Absolute Lymphocytes 1.60 Absolute Monocytes 0.90 H Absolute Eosinophils 0.25 Absolute Basophils 0.06 RBC Morphology See Below Macrocytosis 2+ VBG Lactate Sodium 141 Potassium 4.1 Chloride 108 H Carbon Dioxide 25.3 Anion Gap 7.7 BUN 17 Creatinine 1.0 Estimated GFR/1.73 m2 53.35 Glucose 90 Calcium 8.6 Magnesium Total Bilirubin 1.4 H Conjugated Bilirubin AST 10 L ALT 15 Alkaline Phosphatase 62 Total Protein 6.3 L Albumin 3.0 L Lipase Urine Color Yellow Urine Clarity Clear Urine pH 6.0 Ur Specific [place] >= 1.030 H Urine Protein Negative Urine Ketones Negative Urine Blood Trace-intact H Urine Nitrite Negative Urine Bilirubin Negative Urine Urobilinogen 0.2 Ur Leukocyte Esterase Negative Urine RBC 3-5 H Urine WBC 3-5 Ur Epithelial Cells Few Urine Crystals Negative Urine Bacteria Negative Urine Casts Negative Urine Mucus Negative Ur Culture Indicated? No Urine Glucose Negative COVID-19 Source SARS-CoV-2 (PCR) 11/02/21 07:10 WBC 8.57 RBC 2.85 L Hgb 10.0 L Hct 31.7 L MCV 111.2 H MCH 35.1 H MCHC 31.5 L RDW 11.9 Plt Count 265 MPV 8.5 Immature Gran % 0.5 Neutrophils % 66.1 Lymphocytes % 19.8 Monocytes % 9.1 Eosinophils % 4.0 Basophils % 0.5 Nucleated RBC % 0 Absolute Neutrophils 5.67 Absolute Lymphocytes 1.70 Absolute Monocytes 0.78 Absolute Eosinophils 0.34 Absolute Basophils 0.04 RBC Morphology See Below Macrocytosis 1+ VBG Lactate Sodium Potassium Chloride Carbon Dioxide Anion Gap BUN Creatinine Estimated GFR/1.73 m2 Glucose Calcium Magnesium Total Bilirubin Conjugated Bilirubin AST ALT Alkaline Phosphatase Total Protein Albumin Lipase Urine Color Urine Clarity Urine pH Ur Specific [place] Urine Protein Urine Ketones Urine Blood Urine Nitrite Urine Bilirubin Urine Urobilinogen Ur Leukocyte Esterase Urine RBC Urine WBC Ur Epithelial Cells Urine Crystals Urine Bacteria Urine Casts Urine Mucus Ur Culture Indicated? Urine Glucose COVID-19 Source SARS-CoV-2 (PCR)
[2021-11-02] MEDS: LORazepam 0.5 MG TAB PO ×2 (10:30→21:32)
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
[2021-11-02 11:22] LABS: Iron 73 ug/dL (50-170); Total Iron Binding Capacity 248 ug/dL (250-450)
[2021-11-02 11:36] LABS: Ferritin 105 ng/mL (8-252); TSH 1.59 uIU/mL (0.36-3.74)
[2021-11-02] MEDS: Gadoterate meglumine 20 ML VIAL 16 ML IVP (11:58)
[2021-11-02] MEDS: FAMOTIDINE 20 MG/50 ML BAG 200 MG IVPB (16:12)
[2021-11-02] MEDS: Normal Saline Flush 10 ML SYR IVP (16:27)
[2021-11-02] MEDS: Ondansetron 4 MG/2 ML VIAL IVP (16:27)
--- NOTE | 2021-11-02 17:20 | CHAPLAIN ---
Judi was watching tv from bed when I visited. She was pleasant and easily engaged in a conversation. I explained my role and offered support.
--- NOTE | 2021-11-02 17:21 | CHAPLAIN ---
Judi is a member of the [employer] in [place]. 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 Her son is a hand filer balance wheel in [place], she said. Her daughter, who lives in [place], is driving over tonight to visit because she expects poor driving conditions tomorrow morning. Judi easily engaged in conversation and seemed to enjoy it. She told me about the recent deaths of two friends as well as her cat.
[2021-11-02] MEDS: Calcium Carbonate *TUMS* 500 MG CHEW PO (18:35)
[2021-11-02 18:57] VITALS: RESP 16
[2021-11-02 19:30] VITALS: BP 121/54; PULSE 63; RESP 17; TEMP 36.7; O2SAT 93
[2021-11-02] MEDS: Losartan 50 MG TAB 100 MG PO (21:25)
[2021-11-02] MEDS: Aspirin E.C. 81 MG TABEC PO (21:31)
[2021-11-02 21:45] VITALS: BP 160/88; PULSE 66; RESP 16; TEMP 36.7; O2SAT 93
[2021-11-02 23:00] VITALS: RESP 16; O2SAT 93
[2021-11-03 00:17] VITALS: BP 148/84; PULSE 68; RESP 16; TEMP 36.8; O2SAT 96
[2021-11-03] MEDS: Normal Saline 1,000 ML 100 ML IV (06:49)
[2021-11-03 07:55] VITALS: BP 153/81; PULSE 63; RESP 16; TEMP 36.7; O2SAT 93
[2021-11-03] MEDS: Enoxaparin 40 MG/0.4 ML SYR SC (08:23)
[2021-11-03] MEDS: Escitalopram 20 MG TAB PO (08:23)
[2021-11-03] MEDS: Lidocaine 5% Patch 1 PATCH TP (08:24)
[2021-11-03] MEDS: ACETAMINOPHEN 1,000 MG/100 ML BTL 400 MG IVPB (08:25)
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
[2021-11-03 14:31] VITALS: BP 128/78; PULSE 76; RESP 19; TEMP 37; O2SAT 94
--- NOTE | 2021-11-04 08:16 | PDOC.CMDIS ---
- If Service Date Differs Date of service: 11/03/21 Time of Service: 08:16 LACE Index Scoring Tool - Questions: Length of Stay (in days): 2 Acuity (Admit via E.D.?): Yes Comorbidities: Any Tumor E.D. Visits: 1 - Answers: Total Score: 8 Risk of Readmission: Low Risk Care Management Discharge Reason for Hospitalization: Abdominal pain Discharge Plan: Fideilna will discharge home with no new services. She will follow up with her surgeon and PCP and transport with family. Patient/Family Education Needs: Review discharge instructions, discuss Ask Me Three.
== END 2021-11-03 15:57 | disposition home or self-care (01) | DRG 392 ==
LOC: ER 22:15 → MS 22:32
PROVIDERS: Emergency Medicine; Admitting Provider Surgery; Emergency Provider Student in an Organized Health Care Education/Training Program; PCP Family Medicine; Visit Provider Surgery
DX: K52.9 Noninfective gastroenteritis and colitis, unspecified (principal); M19.012 Primary osteoarthritis, left shoulder; R41.3 Other amnesia; E78.5 Hyperlipidemia, unspecified; I10 Essential (primary) hypertension; D64.9 Anemia, unspecified; M54.6 Pain in thoracic spine; N28.9 Disorder of kidney and ureter, unspecified; G89.29 Other chronic pain; M54.50 Low back pain, unspecified; G47.00 Insomnia, unspecified; F32.A Depression, unspecified; Z86.73 Personal history of transient ischemic attack (TIA), and cerebral infarction without residual deficits; K57.30 Diverticulosis of large intestine without perforation or abscess without bleeding; Z96.653 Presence of artificial knee joint, bilateral; Z96.641 Presence of right artificial hip joint; Z96.611 Presence of right artificial shoulder joint; D13.6 Benign neoplasm of pancreas; Z20.822 Contact with and (suspected) exposure to COVID-19
CPT/HCPCS: 36415; 74183; 80053; 83690; 85027; 87635; 93005; 96361; 96374; 96375; 96376; 99221; 99231; 99238; 99285; J1650; 74177; 76705; 81003; 81015; 82248; 82728; 83540; 83550; 83605; 83735; 84443; 85025; 93010; J0131; J1956; J2405; J3490

== ENCOUNTER 2021-11-27 03:09 | Outpatient (CLI) | payer MEDICARE, MEDICAID, SELFPAY ==
[2021-11-27 11:02] LABS: Hemoglobin A1C 5.3 % (<5.7)
[2021-11-27 11:07] LABS: ALT 25 U/L (14-59); AST 13 U/L (15-37); Alkaline Phosphatase 70 U/L (46-116); Anion Gap 10.4 mmol/L (3-11); BUN 38 mg/dL (7-18); Bilirubin, Total 1.3 mg/dL (0.2-1.0); CO2 28.6 mmol/L (21.0-32.0); Calcium 9.6 mg/dL (8.5-10.1); Calculated LDL 80 mg/dL (<100); Chloride 105 mmol/L (98-107); Cholesterol 202 mg/dL (<200); Estimated GFR 53.35 (mL/min/1.73m2); Glucose 101 mg/dL (74-106); HDL Cholesterol 49 mg/dL (40-60); Potassium 4.2 mmol/L (3.5-5.1); Sodium 144 mmol/L (136-145); Total Protein 7.2 g/dL (6.4-8.2); Triglyceride 369 mg/dL (<150)
== END 2021-11-27 03:10 | disposition home or self-care (01) ==
LOC: LBO 03:09
PROVIDERS: PCP Family Medicine; Visit Provider Family Medicine
DX: E11.9 Type 2 diabetes mellitus without complications (principal); E78.5 Hyperlipidemia, unspecified; F32.9 Major depressive disorder, single episode, unspecified; N25.9 Disorder resulting from impaired renal tubular function, unspecified
CPT/HCPCS: 36415; 80053; 80061; 83036

== ENCOUNTER 2022-09-05 19:48 | Inpatient (IN) | payer MEDICARE, MEDICAID, SELFPAY ==
[2022-09-05] VITALS (24 sets, daily range): BP systolic 130–157; BP diastolic 60–88; PULSE 76–99; RESP 10–32; TEMP 37.3–38.1; O2SAT 93–95
--- NOTE | 2022-09-05 20:00 | DI.CT_ITS ---
Exam(s) CT HEAD WO EXAM: CT HEAD WO CLINICAL HISTORY: weakness eval for stroke. TECHNIQUE: Imaging Protocol: Axial computed tomography images with coronal and sagittal reformatted images were created and reviewed COMPARISON: CT HEAD WITHOUT CONTRAST from 11/08/2016 FINDINGS: Ventricles and Extra axial spaces: Normal in size and morphology for the patient's age. Hemorrhage: None. Cerebral parenchyma: No acute territorial infarct is identified. There are areas of decreased attenu ation in the white matter likely secondary to chronic microvascular ischemic disease. Midline shift: None. Brainstem/Cerebellum: Normal. Calvarium: Normal. Visualized Paranasal sinuses/Mastoids: Clear. Soft Tissues: Unremarkable. IMPRESSION: No acute intracranial process. RADIATION DOSE DELIVERED: 772.73mGy.cm Total DLP DATA REPOSITORY: All CT scans at this facility are submitted to the National Radiology Data Registry (NRDR) Dose Index Registry (DIR) with the [employer] (ACR). RADIATION OPTIMIZATION: All CT scans at this facility use at least one of these dose optimization te chniques: automated exposure control; mA and/or kV adjustment per patient size (includes targeted exa ms where dose is matched to clinical indication); or iterative reconstruction.
--- NOTE | 2022-09-05 20:00 | DI.RAD_ITS ---
Exam(s) XR PORTABLE CHEST AP EXAM: XR PORTABLE CHEST AP CLINICAL HISTORY: cough, eval for pneumonia TECHNIQUE: 2D digital imaging was performed of the chest. One image was obtained. An AP view was ob tained. COMPARISON: CR XR CHEST 2V PA LATERAL from 08/05/2019 FINDINGS: Poor inspiratory effort. MEDIASTINUM: Normal. HEART: Normal. PULMONARY VASCULATURE: Normal. LUNGS: Clear. PLEURAL SPACE: No pleural effusion or pneumothorax. BONE:Within normal limits for the patient's age. Marked degenerative changes of the left shoulder. P ostsurgical changes of a right total reverse shoulder replacement. OTHER FINDINGS:Normal. IMPRESSION: No acute pulmonary findings. DATA REPOSITORY: RADIATION DOSE DELIVERED:
[2022-09-05 20:23] LABS: Abs Immature Grans 0.03 10^3/uL (0.0-0.06); Absolute Basophil Count 0.04 10^3/uL (0.0-0.2); Absolute Lymphocyte Count 0.83 10^3/uL (1.2-3.4); Absolute Monocyte Count 0.82 10^3/uL (0.1-0.8); Absolute Neutrophil Count 7.24 10^3/uL (1.2-6.7); Basophils % 0.4; Eosinophils % 4.3; HCT 36.3 % (36.0-46.0); HGB 12.1 g/dL (11.2-15.7); Immature Grans % 0.3; Lymphocytes % 8.9; MCH 36.6 pg (27.0-33.0); MCHC 33.3 % (32.0-36.0); MCV 110 fL (80-95); MPV 9.1 fL (8.0-11.0); Monocytes % 8.8; Neutrophils % 77.3; Platelet Count 253 10^3/uL (130-400); RBC 3.31 10^6/uL (3.93-5.22); RDW 11.6 % (11.7-14.6); RDW-SD 46.9 fL; WBC 9.36 10^3/uL (4.4-10.8)
[2022-09-05 20:25] LABS: Lactate 2.5 mmol/L (0.6-1.4)
[2022-09-05] MEDS: Normal Saline 500 ML IV (20:34)
[2022-09-05 20:55] LABS: Macrocytosis 2+
[2022-09-05 20:56] LABS: ALT 34 U/L (14-59); AST 23 U/L (15-37); Albumin 3.9 g/dL (3.4-5.0); Alkaline Phosphatase 65 U/L (46-116); Anion Gap 13.3 mmol/L (3-11); BUN 33 mg/dL (7-18); Bilirubin, Total 1.2 mg/dL (0.2-1.0); CO2 23.7 mmol/L (21.0-32.0); CREATININE 1.1 mg/dL (0.55-1.02); Calcium 9.9 mg/dL (8.5-10.1); Chloride 102 mmol/L (98-107); Glucose 189 mg/dL (74-106); Potassium 4.1 mmol/L (3.5-5.1); Sodium 139 mmol/L (136-145); TSH (W/Ref FT4) 0.81 uIU/mL (0.36-3.74); Total Protein 7.8 g/dL (6.4-8.2)
[2022-09-05 21:08] LABS: Influenza A PCR Negative (Negative); Influenza B PCR Negative (Negative); RSV PCR Negative (Negative)
[2022-09-05 21:12] LABS: COVID-19 PCR Positive (Negative); Source Nasopharynx
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
--- NOTE | 2022-09-05 21:17 | DI.VRAD_ITS ---
PROCEDURE INFORMATION: Exam: CT Head Without Contrast Exam date and time: 09/05/2022 9:02 PM Age: 81 years old Clinical indication: Stroke-like symptoms; Generalized weakness, eval for stroke TECHNIQUE: Imaging protocol: Computed tomography of the head without contrast. Radiation optimization: All CT scans at this facility use at least one of these dose optimization techniques: automated exposure control; mA and/or kV adjustment per patient size (includes targeted exams where dose is matched to clinical indication); or iterative reconstruction. Other technique: STROKE PROTOCOL was implemented. COMPARISON: CT HEAD WITHOUT CONTRAST 11/08/2016 6:05 PM FINDINGS: Brain: Periventricular white matter areas of decreased density which are likely secondary to chronic ischemia from microvascular change. No acute intracranial hemorrhage. Diffuse cerebral atrophy. Cerebral ventricles: Ventricular prominence in this patient with diffuse cerebral atrophy. Paranasal sinuses: Partial ethmoid sinusitis. Mastoid air cells: Normally aerated mastoid air cells. Bones/joints: No acute fracture. Soft tissues: Unremarkable. Vasculature: Arterial calcifications. IMPRESSION: 1. No acute intracranial findings. 2. Diffuse cerebral atrophy. Age-related periventricular white matter changes. 3. ASPECTS (Ana M Stroke Program Early CT Score) = 10. Dictated and Authenticated by: Surya Felix MD. Ordering:SRINIVASA Keys MD
--- NOTE | 2022-09-05 21:19 | DI.VRAD_ITS ---
PROCEDURE INFORMATION: Exam: XR Chest Exam date and time: 09/05/2022 8:50 PM Age: 81 years old Clinical indication: Cough, eval for pneumonia TECHNIQUE: Imaging protocol: Radiologic exam of the chest. Views: 1 view. COMPARISON: CR XR CHEST 2V PA LATERAL 08/05/2019 9:34 AM FINDINGS: Lungs: No alveolar infiltrate. Pleural spaces: No pleural fluid collection. No pneumothorax. Heart/Mediastinum: Normal heart size. Bones/joints: Thoracic spine dextroscoliosis. Metallic right shoulder prosthesis. Left shoulder severe osteoarthritis. IMPRESSION: No active pulmonary disease. Dictated and Authenticated by: Surya Felix MD. Ordering:SRINIVASA Keys MD
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
[2022-09-05 21:54] LABS: Bilirubin Negative (Negative); Blood Trace-intact (Negative); Clarity Clear (Clear); Glucose Negative (Negative); Ketones Negative (Negative); Leukocyte Esterase Negative (Negative); Nitrite Negative (Negative); Urobilinogen 0.2 EU/dL (Up TO 0.2)
[2022-09-05 22:02] LABS: Bacteria Negative HPF (Negative); C & S Indicated? No; Crystals Few Amorphous HPF (Negative); Epithelial Cells Few HPF (Negative); Mucus Negative (Negative); WBC Negative HPF (0-5)
[2022-09-05] MEDS: Acetaminophen 325 MG TAB PO (23:14)
[2022-09-06] VITALS (50 sets, daily range): BP systolic 106–153; BP diastolic 48–89; PULSE 59–109; RESP 10–31; TEMP 37.1–37.7; O2SAT 89–97
[2022-09-06] MEDS: Normal Saline 1,000 ML 80 ML IV
[2022-09-06] MEDS: Enoxaparin 40 MG/0.4 ML SYR SC (00:10)
[2022-09-06 06:55] LABS: Abs Immature Grans 0.03 10^3/uL (0.0-0.06); Absolute Basophil Count 0.03 10^3/uL (0.0-0.2); Absolute Eosinophil Count 0.13 10^3/uL (0.0-0.7); Absolute Lymphocyte Count 1.43 10^3/uL (1.2-3.4); Absolute Monocyte Count 1.03 10^3/uL (0.1-0.8); Absolute Neutrophil Count 4.48 10^3/uL (1.2-6.7); Basophils % 0.4; Eosinophils % 1.8; HCT 32.3 % (36.0-46.0); HGB 10.6 g/dL (11.2-15.7); Immature Grans % 0.4; Lymphocytes % 20.1; MCH 35.9 pg (27.0-33.0); MCHC 32.8 % (32.0-36.0); MCV 110 fL (80-95); MPV 9.3 fL (8.0-11.0); Monocytes % 14.4; Neutrophils % 62.9; Platelet Count 226 10^3/uL (130-400); RBC 2.95 10^6/uL (3.93-5.22); RDW 11.6 % (11.7-14.6); RDW-SD 46.8 fL; WBC 7.13 10^3/uL (4.4-10.8)
[2022-09-06 07:41] LABS: ALT 26 U/L (14-59); AST 14 U/L (15-37); Albumin 3.4 g/dL (3.4-5.0); Alkaline Phosphatase 55 U/L (46-116); Anion Gap 8.5 mmol/L (3-11); BUN 26 mg/dL (7-18); CO2 25.5 mmol/L (21.0-32.0); CREATININE 0.9 mg/dL (0.55-1.02); Calcium 8.9 mg/dL (8.5-10.1); Chloride 105 mmol/L (98-107); Estimated GFR 64.63 (mL/min/1.73m2); Glucose 84 mg/dL (74-106); Magnesium 2.3 mg/dL (1.8-2.4); Potassium 3.7 mmol/L (3.5-5.1); Sodium 139 mmol/L (136-145); Total Protein 6.6 g/dL (6.4-8.2)
[2022-09-06 07:48] LABS: Lactate 0.8 mmol/L (0.6-1.4)
[2022-09-06] MEDS: Acetaminophen 325 MG TAB PO (08:05)
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
[2022-09-06 10:04] LABS: Lab Add On Test DONE
--- NOTE | 2022-09-06 10:39 | PGE_ITS ---
Date of Service Date of service: 09/06/22 Time of Service: 09:40 Assessment and Plan Assessment and plan (1) COVID-19: Status: Acute Assessment and plan: Not requiring O2. No evidence of pulmonary disease on CXR. Will supplement vitamins c, d, zinc. Suspect this is contributing to myalgias and weakness. S/p MAB - we are researching if there is additional benefit with treating with paxlovid. (2) Dehydration, moderate: Status: Acute Assessment and plan: Clinically better. IVF d/c'ed. (3) Cognitive decline: Status: Chronic Assessment and plan: Monitor behaviors. The patient does not appear to be an escape risk so far and has not had unsafe behaviors that have been reported to me. (4) Essential hypertension: Status: Acute Assessment and plan: Continue losartan (5) DVT prophylaxis: Status: Acute Assessment and plan: SC enoxaparin (6) Discharge planning issues: Status: Acute Assessment and plan: Full code Anticipate discharge home in 24-48 hrs Subjective Subjective Interval history since last seen: The patient is seen via the glass door of the ICU while she is working with PT due to her COVID-19 positivity and medical stability. She has been complaining of diffuse body aches. She is on RA and has not required supplemental oxygen. She is ambulating with a walker. At home she only walks a few steps. Exam Narrative Exam Narrative: Physical exam is done via the glass door of the ICU due to the diagnosis of C OVID-19 and the patient's medical stability. She was awake, ambulating on RA with a walker with PT. No evidence of respiratory distress. Appeared relatively comfortable. Objective Last Vital Signs Temp 37.3 C 09/05/22 23:46 Pulse 63 09/06/22 06:01 Resp 16 09/06/22 06:01 BP 131/63 09/06/22 06:01 Pulse Ox 92 09/06/22 06:01 Laboratory Results - last 24 hr 09/05/22 09/05/22 09/05/22 20:20 20:20 20:20 WBC RBC Hgb Hct MCV MCH MCHC RDW Plt Count MPV Immature Gran % Neutrophils % Lymphocytes % Monocytes % Eosinophils % Basophils % Nucleated RBC % Absolute Neutrophils Absolute Lymphocytes Absolute Monocytes Absolute Eosinophils Absolute Basophils RBC Morphology Macrocytosis VBG Lactate 2.5 H* Sodium 139 Potassium 4.1 Chloride 102 Carbon Dioxide 23.7 Anion Gap 13.3 H BUN 33 H Creatinine 1.1 H Est GFR (CKD-EPI 2020) 50.80 Glucose 189 H Calcium 9.9 Magnesium Total Bilirubin 1.2 H AST 23 ALT 34 Alkaline Phosphatase 65 Total Protein 7.8 Albumin 3.9 TSH 0.81 Urine Color Urine Clarity Urine pH Ur Specific [place] Urine Protein Urine Ketones Urine Blood Urine Nitrite Urine Bilirubin Urine Urobilinogen Ur Leukocyte Esterase Urine RBC Urine WBC Ur Epithelial Cells Urine Crystals Urine Bacteria Urine Mucus Ur Culture Indicated? Urine Glucose COVID-19 Source Nasopharynx SARS-CoV-2 (PCR) Positive A Influenza Type A (PCR) Negative Influenza Type B (PCR) Negative RSV (PCR) Negative Add-On Test Request 09/05/22 09/05/22 09/06/22 20:20 21:30 05:20 WBC 9.36 RBC 3.31 L Hgb 12.1 Hct 36.3 MCV 110 H MCH 36.6 H MCHC 33.3 RDW 11.6 L Plt Count 253 MPV 9.1 Immature Gran % 0.3 Neutrophils % 77.3 Lymphocytes % 8.9 Monocytes % 8.8 Eosinophils % 4.3 Basophils % 0.4 Nucleated RBC % 0.0 Absolute Neutrophils 7.24 H Absolute Lymphocytes 0.83 L Absolute Monocytes 0.82 H Absolute Eosinophils 0.40 Absolute Basophils 0.04 RBC Morphology See Below Macrocytosis 2+ VBG Lactate Sodium 139 Potassium 3.7 Chloride 105 Carbon Dioxide 25.5 Anion Gap 8.5 BUN 26 H Creatinine 0.9 Est GFR (CKD-EPI 2020) 64.63 Glucose 84 Calcium 8.9 Magnesium 2.3 Total Bilirubin 1.0 AST 14 L ALT 26 Alkaline Phosphatase 55 Total Protein 6.6 Albumin 3.4 TSH Urine Color Yellow Urine Clarity Clear Urine pH 7.0 Ur Specific [place] 1.020 Urine Protein Negative Urine Ketones Negative Urine Blood Trace-intact H Urine Nitrite Negative Urine Bilirubin Negative Urine Urobilinogen 0.2 Ur Leukocyte Esterase Negative Urine RBC 5-10 H Urine WBC Negative Ur Epithelial Cells Few Urine Crystals Few Amorphous Urine Bacteria Negative Urine Mucus Negative Ur Culture Indicated? No Urine Glucose Negative COVID-19 Source SARS-CoV-2 (PCR) Influenza Type A (PCR) Influenza Type B (PCR) RSV (PCR) Add-On Test Request 09/06/22 09/06/22 09/06/22 05:20 07:36 07:36 WBC 7.13 RBC 2.95 L Hgb 10.6 L Hct 32.3 L MCV 110 H MCH 35.9 H MCHC 32.8 RDW 11.6 L Plt Count 226 MPV 9.3 Immature Gran % 0.4 Neutrophils % 62.9 Lymphocytes % 20.1 Monocytes % 14.4 Eosinophils % 1.8 Basophils % 0.4 Nucleated RBC % 0.0 Absolute Neutrophils 4.48 Absolute Lymphocytes 1.43 Absolute Monocytes 1.03 H Absolute Eosinophils 0.13 Absolute Basophils 0.03 RBC Morphology Macrocytosis VBG Lactate 0.8 Sodium Potassium Chloride Carbon Dioxide Anion Gap BUN Creatinine Est GFR (CKD-EPI 2020) Glucose Calcium Magnesium Total Bilirubin AST ALT Alkaline Phosphatase Total Protein Albumin TSH Urine Color Urine Clarity Urine pH Ur Specific [place] Urine Protein Urine Ketones Urine Blood Urine Nitrite Urine Bilirubin Urine Urobilinogen Ur Leukocyte Esterase Urine RBC Urine WBC Ur Epithelial Cells Urine Crystals Urine Bacteria Urine Mucus Ur Culture Indicated? Urine Glucose COVID-19 Source SARS-CoV-2 (PCR) Influenza Type A (PCR) Influenza Type B (PCR) RSV (PCR) Add-On Test Request DONE
[2022-09-06 10:41] LABS: Ferritin 75 ng/mL (8-252)
[2022-09-06] MEDS: Pantoprazole 40 MG TABCR PO (10:41)
[2022-09-06] MEDS: Ascorbic Acid 500 MG TAB PO ×2 (10:41→20:23)
[2022-09-06] MEDS: Escitalopram 20 MG TAB PO (10:42)
[2022-09-06] MEDS: Sucralfate 1 GM TAB PO ×2 (10:42→15:11)
[2022-09-06] MEDS: Cholecalciferol (Vitamin D3) 1,000 UNIT TAB 5000 UNITS PO (10:42)
[2022-09-06] MEDS: Vitamins B Comp w/C TAB 1 TAB PO (10:42)
[2022-09-06] MEDS: Multivitamin TAB 1 TAB PO (10:42)
[2022-09-06 10:45] LABS: D-Dimer 450 ng/mlFEU (<500)
[2022-09-06 11:05] LABS: Procalcitonin < 0.1 ng/mL
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
[2022-09-06 11:37] LABS: Lab Add On Test DONE
[2022-09-06 12:10] LABS: Creatine Kinase 72 U/L (26-192)
[2022-09-06] MEDS: VANCOMYCIN/WATER (PEG) 1.25 GM/250 ML BAG IVPB (17:45)
[2022-09-06] MEDS: Aspirin E.C. 81 MG TABEC PO ×2 (20:23)
[2022-09-06] MEDS: Pravastatin 40 MG TAB 80 MG PO (20:23)
[2022-09-06] MEDS: Losartan 50 MG TAB 100 MG PO (22:37)
[2022-09-07] VITALS (16 sets, daily range): BP systolic 112–175; BP diastolic 61–79; PULSE 58–77; RESP 11–26; TEMP 36.8–37; O2SAT 92–97
[2022-09-07] MEDS: Enoxaparin 40 MG/0.4 ML SYR SC (00:55)
[2022-09-07] MEDS: Acetaminophen 325 MG TAB PO ×2 (03:17→17:13)
[2022-09-07 05:38] LABS: Abs Immature Grans 0.02 10^3/uL (0.0-0.06); Absolute Basophil Count 0.05 10^3/uL (0.0-0.2); Absolute Lymphocyte Count 1.43 10^3/uL (1.2-3.4); Absolute Monocyte Count 0.83 10^3/uL (0.1-0.8); Basophils % 0.8; Eosinophils % 6.3; HCT 33.4 % (36.0-46.0); Immature Grans % 0.3; Lymphocytes % 22.6; MCH 35.6 pg (27.0-33.0); MCHC 32.9 % (32.0-36.0); MCV 108 fL (80-95); MPV 9.1 fL (8.0-11.0); Monocytes % 13.1; Neutrophils % 56.9; Platelet Count 221 10^3/uL (130-400); RBC 3.09 10^6/uL (3.93-5.22); RDW 11.5 % (11.7-14.6); RDW-SD 45.6 fL; WBC 6.33 10^3/uL (4.4-10.8)
[2022-09-07 06:01] LABS: ALT 33 U/L (14-59); AST 19 U/L (15-37); Albumin 3.3 g/dL (3.4-5.0); Alkaline Phosphatase 57 U/L (46-116); Anion Gap 10.5 mmol/L (3-11); BUN 21 mg/dL (7-18); CO2 23.5 mmol/L (21.0-32.0); CREATININE 0.9 mg/dL (0.55-1.02); Chloride 106 mmol/L (98-107); Estimated GFR 64.63 (mL/min/1.73m2); Glucose 87 mg/dL (74-106); Potassium 3.8 mmol/L (3.5-5.1); Sodium 140 mmol/L (136-145); Total Protein 6.7 g/dL (6.4-8.2)
[2022-09-07 06:09] LABS: Macrocytosis 3+
[2022-09-07 06:21] LABS: D-Dimer 901 ng/mlFEU (<500)
[2022-09-07 06:54] LABS: Bilirubin, Direct 0.2 mg/dL (0.0-0.2); C-Reactive Protein 0.99 mg/dL (0.0-0.3)
[2022-09-07] MEDS: VANCOMYCIN/WATER (PEG) 1 GM/200 ML BAG IVPB ×2 (09:25→21:41)
[2022-09-07] MEDS: Zinc Sulfate 220 MG TAB PO (09:25)
[2022-09-07] MEDS: Escitalopram 20 MG TAB PO (09:26)
[2022-09-07] MEDS: Cholecalciferol (Vitamin D3) 1,000 UNIT TAB 5000 UNITS PO (09:26)
[2022-09-07] MEDS: Vitamins B Comp w/C TAB 1 TAB PO (09:26)
[2022-09-07] MEDS: Multivitamin TAB 1 TAB PO (09:26)
[2022-09-07] MEDS: Pantoprazole 40 MG TABCR PO (09:26)
[2022-09-07] MEDS: Sucralfate 1 GM TAB PO ×4 (09:26→17:12)
[2022-09-07] MEDS: Ascorbic Acid 500 MG TAB PO ×2 (09:26→21:44)
--- NOTE | 2022-09-07 09:54 | PGE_ITS ---
Date of Service Date of service: 09/07/22 Time of Service: 09:54 Assessment and Plan Assessment and plan (1) COVID-19: Status: Acute Assessment and plan: Not requiring O2. No evidence of pulmonary disease on CXR. Continue supplementation with vitamins c, d, zinc. Suspect this is contributing to myalgias and weakness. S/p MAB. No indication for antiviral therapy at this time since she received MAB. (2) Positive blood cultures: Status: Acute Assessment and plan: In setting of a negative procalcitonin and in the absence of usual signs of sepsis, I think this likely represents a contaminant. Repeat blood cultures pending at this time. Until these are back, would continue empiric vancomycin. (3) Dehydration, moderate: Status: Resolved Assessment and plan: Encourage PO hydration. (4) Cognitive decline: Status: Chronic Assessment and plan: The patient does not appear to be an escape risk so far and has not had unsafe behaviors that have been reported to me. (5) Essential hypertension: Status: Acute Assessment and plan: Continue losartan (6) DVT prophylaxis: Status: Acute Assessment and plan: SC enoxaparin (7) Discharge planning issues: Status: Acute Assessment and plan: Full code Anticipate discharge home tomorrow if original blood cultures are c/w a contaminant and repeat blood cultures are negative. Subjective Subjective Interval history since last seen: AUGUSTIN. Patient remains on room air, is cooperative and not impulsive, working with PT. Continues to report body aches to nurses, for which she is receiving tylenol. The patient was seen via glass door of the ICU due to her COVID-19 positivity and medical stability. Blood cultures from admission: 1 set positive for GPCs in clusters and pairs. Vancomycin initiated empirically while repeat cultures are pending. Afebrile yesterday. Exam Narrative Exam Narrative: Physical exam is done via the glass door of the ICU due to the diagnosis of CO VID-19 and the patient's medical stability. She was awake, sitting up in a chair speaking with the physical therapist. Comfortable. Does not appear ill. No evidence of respiratory distress on RA, nonlabored breathing while talking. Objective Last Vital Signs Temp 37.0 C 09/07/22 02:50 Pulse 58 L 09/07/22 02:50 Resp 20 09/07/22 02:50 BP 160/70 H 09/07/22 02:50 Pulse Ox 94 09/07/22 02:50 Laboratory Results - last 24 hr 09/06/22 09/06/22 09/06/22 07:36 07:36 07:36 WBC RBC Hgb Hct MCV MCH MCHC RDW Plt Count MPV Immature Gran % Neutrophils % Lymphocytes % Monocytes % Eosinophils % Basophils % Nucleated RBC % Absolute Neutrophils Absolute Lymphocytes Absolute Monocytes Absolute Eosinophils Absolute Basophils RBC Morphology Macrocytosis D-Dimer Sodium Potassium Chloride Carbon Dioxide Anion Gap BUN Creatinine Est GFR (CKD-EPI 2020) Glucose Calcium Magnesium Ferritin 75 Total Bilirubin Conjugated Bilirubin AST ALT Alkaline Phosphatase Creatine Kinase C-Reactive Protein 1.10 H Total Protein Albumin Procalcitonin < 0.1 Add-On Test Request DONE 09/06/22 09/06/22 09/06/22 07:36 07:36 07:36 WBC RBC Hgb Hct MCV MCH MCHC RDW Plt Count MPV Immature Gran % Neutrophils % Lymphocytes % Monocytes % Eosinophils % Basophils % Nucleated RBC % Absolute Neutrophils Absolute Lymphocytes Absolute Monocytes Absolute Eosinophils Absolute Basophils RBC Morphology Macrocytosis D-Dimer 450 Sodium Potassium Chloride Carbon Dioxide Anion Gap BUN Creatinine Est GFR (CKD-EPI 2020) Glucose Calcium Magnesium Ferritin Total Bilirubin Conjugated Bilirubin AST ALT Alkaline Phosphatase Creatine Kinase 72 C-Reactive Protein Total Protein Albumin Procalcitonin Add-On Test Request DONE 09/07/22 09/07/22 09/07/22 04:55 04:55 04:55 WBC 6.33 RBC 3.09 L Hgb 11.0 L Hct 33.4 L MCV 108 H MCH 35.6 H MCHC 32.9 RDW 11.5 L Plt Count 221 MPV 9.1 Immature Gran % 0.3 Neutrophils % 56.9 Lymphocytes % 22.6 Monocytes % 13.1 Eosinophils % 6.3 Basophils % 0.8 Nucleated RBC % 0.0 Absolute Neutrophils 3.60 Absolute Lymphocytes 1.43 Absolute Monocytes 0.83 H Absolute Eosinophils 0.40 Absolute Basophils 0.05 RBC Morphology See Below Macrocytosis 3+ D-Dimer 901 H Sodium 140 Potassium 3.8 Chloride 106 Carbon Dioxide 23.5 Anion Gap 10.5 BUN 21 H Creatinine 0.9 Est GFR (CKD-EPI 2020) 64.63 Glucose 87 Calcium 9.0 Magnesium 2.0 Ferritin Total Bilirubin 1.0 Conjugated Bilirubin 0.2 AST 19 ALT 33 Alkaline Phosphatase 57 Creatine Kinase C-Reactive Protein 0.99 H Total Protein 6.7 Albumin 3.3 L Procalcitonin Add-On Test Request
--- NOTE | 2022-09-07 14:08 | PT.INTREAT ---
Date of service: 09/07/22 Time of Service: 08:55 PT Notes Visit Reasons: COVID-19 pneumonia, Dehydration Inpatient Physical Therapy Treatment Note [facility] Date: 09/07/2022 PRECAUTIONS: Activity as tolerated, Fall, COVID-19 SUBJECTIVE: Fidelina is pleasant and agreeable to participating in PT. She reports that her hearing aids are not charged so she is having trouble hearing. She reports that she lives with her son, ISAAK and grandson, who help her quite a bit. OBJECTIVE: PAIN: No c/o pain BED MOBILITY/TRANSFERS Sit-stand: CGA Stand-sit: SBA GAIT: Assistive Device: FWW Weight bearing: Full Assistance: SBA Distance: 50' Deviation: Slow pacing THEREX: Patient was instructed in a LE strengthening program, completed in a both seated position, to include: ankle pumps, heel raises, LAQ, hip flexion and hip abduction. ASSESSMENT: Patient tolerated session well, although demonstrates slow pacing with gait training with FWW support. She would benefit from continued global strengthening for improved activity tolerance. PLAN: Continue with gait and transfer training and global strengthening, as tolerated, for improved mobility. TREATMENT CODE/TIME: 29 minutes; [id number], [id number] (08:55)
--- NOTE | 2022-09-07 19:30 | NUR.NOTE ---
Nursing Note: patient transferred from ICU to 216
[2022-09-07] MEDS: Aspirin E.C. 81 MG TABEC PO (21:43)
[2022-09-07] MEDS: Losartan 50 MG TAB 100 MG PO (21:44)
[2022-09-07] MEDS: Pravastatin 40 MG TAB 80 MG PO (21:44)
[2022-09-08] VITALS (7 sets, daily range): BP systolic 124–142; BP diastolic 53–83; PULSE 57–80; RESP 15–20; TEMP 37.1–37.2; O2SAT 95–96
[2022-09-08] MEDS: Enoxaparin 40 MG/0.4 ML SYR SC (00:44)
[2022-09-08 06:30] LABS: Abs Immature Grans 0.03 10^3/uL (0.0-0.06); Absolute Basophil Count 0.06 10^3/uL (0.0-0.2); Absolute Eosinophil Count 0.59 10^3/uL (0.0-0.7); Absolute Lymphocyte Count 1.53 10^3/uL (1.2-3.4); Absolute Monocyte Count 0.68 10^3/uL (0.1-0.8); Absolute Neutrophil Count 4.49 10^3/uL (1.2-6.7); Basophils % 0.8; HGB 11.4 g/dL (11.2-15.7); Immature Grans % 0.4; Lymphocytes % 20.7; MCH 36.3 pg (27.0-33.0); MCHC 33.5 % (32.0-36.0); MCV 108 fL (80-95); MPV 9.4 fL (8.0-11.0); Monocytes % 9.2; Neutrophils % 60.9; Platelet Count 228 10^3/uL (130-400); RBC 3.14 10^6/uL (3.93-5.22); RDW 11.7 % (11.7-14.6); RDW-SD 45.8 fL; WBC 7.38 10^3/uL (4.4-10.8)
[2022-09-08 06:54] LABS: Macrocytosis 3+
[2022-09-08 07:00] LABS: ALT 32 U/L (14-59); AST 23 U/L (15-37); Albumin 3.5 g/dL (3.4-5.0); Alkaline Phosphatase 62 U/L (46-116); BUN 21 mg/dL (7-18); Bilirubin, Direct 0.2 mg/dL (0.0-0.2); C-Reactive Protein 0.91 mg/dL (0.0-0.3); CREATININE 0.9 mg/dL (0.55-1.02); Calcium 9.3 mg/dL (8.5-10.1); Chloride 108 mmol/L (98-107); Estimated GFR 64.63 (mL/min/1.73m2); Glucose 93 mg/dL (74-106); Magnesium 2.2 mg/dL (1.8-2.4); Potassium 3.8 mmol/L (3.5-5.1); Sodium 143 mmol/L (136-145); Total Protein 7.1 g/dL (6.4-8.2)
[2022-09-08 07:14] LABS: D-Dimer 464 ng/mlFEU (<500); Procalcitonin < 0.1 ng/mL
[2022-09-08 07:42] LABS: Ferritin 109 ng/mL (8-252); Vitamin B12 1337 pg/mL (193-986)
[2022-09-08 07:49] LABS: Folate > 20.0 ng/mL (8.6-20.0)
[2022-09-08] MEDS: Multivitamin TAB 1 TAB PO (08:58)
[2022-09-08] MEDS: Zinc Sulfate 220 MG TAB PO (08:59)
[2022-09-08] MEDS: Vitamins B Comp w/C TAB 1 TAB PO (08:59)
[2022-09-08] MEDS: Escitalopram 20 MG TAB PO (08:59)
[2022-09-08] MEDS: Pantoprazole 40 MG TABCR PO (09:00)
[2022-09-08] MEDS: Sucralfate 1 GM TAB PO (09:00)
[2022-09-08] MEDS: Ascorbic Acid 500 MG TAB PO (09:00)
[2022-09-08] MEDS: Cholecalciferol (Vitamin D3) 1,000 UNIT TAB 5000 UNITS PO (09:00)
--- NOTE | 2022-09-08 12:26 | PT.INNT ---
PT Notes Visit Reasons: COVID-19 pneumonia, Dehydration Pt with Covid Attempted to engaged pt but refused all attempts for therapy today.
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
--- NOTE | 2022-09-08 15:23 | CMDISCH_ITS ---
- If Service Date Differs Date of service: 09/08/22 Time of Service: 15:23 LACE Index Scoring Tool - Questions: Length of Stay (in days): 2 Acuity (Admit via E.D.?): Yes Comorbidities: Cerebrovascular Disease, Any Tumor E.D. Visits: 2 - Answers: Total Score: 10 Risk of Readmission: High Risk Care Management Discharge Reason for Hospitalization: COVID-19 pneumonia, dehydration Discharge Plan: Judi is discharged home with new [facility] RN/PT. Judi is transported via private vehicle with family. Judi agrees to her discharge plan of care as prescribed and will call [facility] on Friday to schedule a follow up appointment with her PCP. Patient/Family Education Needs: Review discharge instructions, limitations, medications and plan to follow up with community providers. Discuss ask me three. Services Needed at Discharge: Home Health Care Services (New [facility] RN/PT, CM notified HH, face to face is complete.)
--- NOTE | 2022-09-08 15:33 | PDOC.HHF2F_ITS ---
Home Health Certification Home Health Certification: 1. Encounter Date and Reason I certify that Judi Hawkins was seen by Roddy Max MD on 09/08/22 and that I had a [id number] encounter with this patient that meets the physician face to face encounter requirements. 2. Clinical Findings Supporting Skilled Need and Homebound Status I certify that home health services are medically necessary, include either intermittent intermediate and/or physical/speech therapy, and that this patient is homebound in that absences from the home require considerable and taxing effort and are infrequent or of short duration, or are attributable to the need to receive medical care. [X] (a) Attached documentation from encounter provides clinical findings supporting skilled need and homebound status (including what assistance patient requires to leave the home). The encounter with the patient was in whole, or in part, for the following medical condition, which is the primary reason for home health care: COVID-19 pneumonia, Dehydration [facility]: Physical Therapy:Needed to restore the patient's ability to ambulate independently and safely. Occupational Therapy: Evaluate and treat for her ability/inability to perform ADLs/IADls/self care. Speech Therapy: Homebound:Unable to leave home without assistance due to unsteady gait, impaired tansfers and inability to negotiate stairs unassisted. 3. Certification and Authentication I certify that I composed the above information based on my clinical judgement relating to this patient's medical condition and, if applicable, clinical findings communicated to me by the NPP or inpatient physician who performed the Home Health Referral. All further orders will be obtained through Amanda Foreman (Community Based Physician - PCP)
[2022-09-09 07:53] LABS: Vitamin D 25 Total 27.8 ng/mL (30-100)
== END 2022-09-08 16:55 | disposition home health service (06) | DRG 177 ==
LOC: ER 21:47 → ICU 23:33 → MS 09-08 15:17
PROVIDERS: Internal Medicine; Admitting Provider Family Medicine; Emergency Provider Student in an Organized Health Care Education/Training Program; PCP Family Medicine; Visit Provider Family Medicine
DX: U07.1 COVID-19 (principal); J12.82 Pneumonia due to coronavirus disease 2019; E86.0 Dehydration; R53.1 Weakness; Z86.73 Personal history of transient ischemic attack (TIA), and cerebral infarction without residual deficits; I10 Essential (primary) hypertension; E78.00 Pure hypercholesterolemia, unspecified; G89.29 Other chronic pain; M54.9 Dorsalgia, unspecified; Z96.611 Presence of right artificial shoulder joint; Z96.653 Presence of artificial knee joint, bilateral; Z96.641 Presence of right artificial hip joint; R41.89 Other symptoms and signs involving cognitive functions and awareness; D64.9 Anemia, unspecified; M54.6 Pain in thoracic spine; N28.9 Disorder of kidney and ureter, unspecified; M54.50 Low back pain, unspecified; G47.00 Insomnia, unspecified; E78.5 Hyperlipidemia, unspecified; F32.A Depression, unspecified; H90.3 Sensorineural hearing loss, bilateral
CPT/HCPCS: 36415; 80048; 80053; 80076; 82306; 82550; 84145; 87040; 87077; 87637; 96361; 96374; 97110; 97162; 97530; 99285; J1650; Q0222; 70450; 71045; 81003; 81015; 82607; 82728; 82746; 83605; 83735; 84443; 85025; 85379; 86140; 87186; 99220; 99231; 99239; G0378

== ENCOUNTER 2024-02-16 18:10 | Inpatient (IN) | payer MEDICARE, MEDICAID, SELFPAY ==
[2024-02-16] VITALS (13 sets, daily range): BP systolic 124–167; BP diastolic 53–78; PULSE 67–85; RESP 15–24; TEMP 37.5–38.1; O2SAT 95–97
[2024-02-16 19:03] LABS: Abs Immature Grans 0.05 10^3/uL (0.0-0.06); Absolute Basophil Count 0.02 10^3/uL (0.0-0.2); Absolute Eosinophil Count 0.01 10^3/uL (0.0-0.7); Absolute Lymphocyte Count 0.62 10^3/uL (1.2-3.4); Absolute Monocyte Count 0.97 10^3/uL (0.1-0.8); Absolute Neutrophil Count 6.34 10^3/uL (1.2-6.7); Basophils % 0.2; Eosinophils % 0.1; HCT 33.1 % (36.0-46.0); HGB 10.7 g/dL (11.2-15.7); Immature Grans % 0.6; Lymphocytes % 7.7; MCH 35.3 pg (27.0-33.0); MCHC 32.3 % (32.0-36.0); MCV 109 fL (80-95); MPV 9.2 fL (8.0-11.0); Monocytes % 12.1; Neutrophils % 79.3; Platelet Count 285 10^3/uL (130-400); RBC 3.03 10^6/uL (3.93-5.22); RDW 11.8 % (11.7-14.6); RDW-SD 46.5 fL; WBC 8.01 10^3/uL (4.4-10.8)
[2024-02-16 19:14] LABS: Diff Comment RBC Morph Reviewed; Macrocytosis 1+
[2024-02-16 19:22] LABS: ALT 26 U/L (14-59); AST 25 U/L (15-37); Albumin 3.4 g/dL (3.4-5.0); Alkaline Phosphatase 79 U/L (46-116); Anion Gap 12.9 mmol/L (3-11); BUN 52 mg/dL (7-18); CO2 22.1 mmol/L (21.0-32.0); CREATININE 1.4 mg/dL (0.55-1.02); Calcium 9.4 mg/dL (8.5-10.1); Chloride 102 mmol/L (98-107); Estimated GFR 37.56 (mL/min/1.73m2); Glucose 194 mg/dL (74-106); Lipase 39 U/L (16-77); Potassium 4.4 mmol/L (3.5-5.1); Sodium 137 mmol/L (136-145); Total Protein 7.4 g/dL (6.4-8.2)
--- NOTE | 2024-02-16 19:22 | DI.CT_ITS ---
Exam(s) CT HEAD WO EXAM: CT HEAD WO CLINICAL HISTORY: ams. TECHNIQUE: Imaging Protocol: Axial computed tomography images with coronal and sagittal reformatted images were created and reviewed COMPARISON: No exams were available for comparison FINDINGS: Ventricles and Extra axial spaces: Normal in size and morphology for the patient's age. Hemorrhage: None. Cerebral parenchyma: There are areas of decreased attenuation in the white matter. The findings woul d be consistent with chronic microvascular ischemic disease. No mass effect is identified. Midline shift: None. Brainstem/Cerebellum: Normal. Calvarium: Normal. Visualized Paranasal sinuses/Mastoids: There is mucosal thickening in the ethmoid air cells bilateral ly. The remaining visualized paranasal sinuses are clear. Soft Tissues: Unremarkable. IMPRESSION: No acute intracranial process. RADIATION DOSE DELIVERED: Total DLP DATA REPOSITORY: All CT scans at this facility are submitted to the National Radiology Data Registry (NRDR) Dose Index Registry (DIR) with the [employer] (ACR). RADIATION OPTIMIZATION: All CT scans at this facility use at least one of these dose optimization te chniques: automated exposure control; mA and/or kV adjustment per patient size (includes targeted exa ms where dose is matched to clinical indication); or iterative reconstruction.
--- NOTE | 2024-02-16 19:22 | DI.RAD_ITS ---
Exam(s) XR CHEST 2V PA LATERAL EXAM: XR CHEST 2V PA LATERAL CLINICAL HISTORY: cough, fever TECHNIQUE: 2D digital imaging was performed of the chest. Two images were obtained. PA and lateral views were obtained. COMPARISON: CR XR CHEST 2V PA LATERAL from 08/05/2019 CR,XR XR PORTABLE CHEST AP from 09/05/2022 FINDINGS: MEDIASTINUM: Normal. HEART: Normal. PULMONARY VASCULATURE: Normal. LUNGS: Clear. PLEURAL SPACE: No pleural effusion or pneumothorax. BONE:Within normal limits for the patient's age. The patient has a right total reverse shoulder repl acement. There are marked degenerative changes seen in the left glenohumeral joint. OTHER FINDINGS:Normal. IMPRESSION: No acute pulmonary findings. DATA REPOSITORY: RADIATION DOSE DELIVERED:
[2024-02-16] MEDS: Normal Saline 1,000 ML 1000 ML IV (19:30)
[2024-02-16] MEDS: ACETAMINOPHEN 1,000 MG/100 ML BTL 400 MG IVPB (19:30)
[2024-02-16 19:38] LABS: Lactate 2.3 mmol/L (0.6-1.4)
--- NOTE | 2024-02-16 19:52 | DI.VRAD_ITS ---
PROCEDURE INFORMATION: Exam: CT Head Without Contrast Exam date and time: 02/16/2024 7:07 PM Age: 83 years old Clinical indication: Other: AMS TECHNIQUE: Imaging protocol: Computed tomography of the head without contrast. COMPARISON: CT HEAD WO 09/05/2022 9:02 PM FINDINGS: Brain: Stable moderate generalized cerebral atrophy. No intracranial mass, hemorrhage or evidence of acute ischemia. Cerebral ventricles: No ventriculomegaly. Paranasal sinuses: Mild scattered mucosal thickening in the bilateral ethmoid air cells. Sinuses are otherwise clear. No fluid levels. Mastoid air cells: Visualized mastoid air cells are well aerated. Bones/joints: Unremarkable. No acute fracture. Soft tissues: Unremarkable. IMPRESSION: No acute intracranial abnormality Dictated and Authenticated by: Yves Varner MD. Ordering:AMY Carbajal MD
--- NOTE | 2024-02-16 19:55 | DI.VRAD_ITS ---
PROCEDURE INFORMATION: Exam: XR Chest Exam date and time: 02/16/2024 7:18 PM Age: 83 years old Clinical indication: Cough and fever; Patient HX: Fever and cough; Additional info: PT unable to follow breathing instructions. TECHNIQUE: Imaging protocol: Radiologic exam of the chest. Views: 2 views. COMPARISON: CR XR PORTABLE CHEST AP 09/05/2022 8:50 PM FINDINGS: Lungs: Unremarkable. No consolidation. Pleural spaces: Unremarkable. No pleural effusion. No pneumothorax. Heart/Mediastinum: Unremarkable. No cardiomegaly. Bones/joints: Moderate degenerative disc changes throughout the thoracic spine. Severe degenerative changes in the left glenohumeral joint. Right shoulder prosthesis in place. IMPRESSION: No acute disease Dictated and Authenticated by: Yves Varner MD. Ordering:AMY Carbajal MD
[2024-02-16 20:23] LABS: COVID-19 PCR Negative (Negative); Influenza A PCR Positive (Negative); Influenza B PCR Negative (Negative); RSV PCR Negative (Negative)
[2024-02-16 20:25] LABS: Source Nasopharynx
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
[2024-02-16 20:44] LABS: Bilirubin Negative (Negative); Blood Large (Negative); Clarity Turbid (Clear); Glucose Negative (Negative); Ketones Negative (Negative); Leukocyte Esterase Large (Negative); Nitrite Negative (Negative); Specific Gravity 1.015 (1.005-1.025); Urobilinogen 0.2 mg/dL (Up to 0.2); pH 5.5 (5-8)
[2024-02-16 20:56] LABS: C & S Indicated? Yes; WBC >50 HPF (0-5)
[2024-02-16] MEDS: cefTRIAXone 2 GM/50 ML BAG IVPB (21:09)
[2024-02-16] MEDS: Normal Saline 500 ML IV (21:09)
[2024-02-16] MEDS: Nystatin POWDER 60 GM JAR TP (21:10)
[2024-02-16] MEDS: Oseltamivir 75 MG CAP PO (21:13)
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
[2024-02-16 21:41] LABS: Lactate 0.9 mmol/L (0.6-1.4)
--- NOTE | 2024-02-16 22:03 | NUR.NOTE ---
report given to Kojo EMT-P and care relinquished :
[2024-02-17] VITALS (7 sets, daily range): BP systolic 117–144; BP diastolic 65–80; PULSE 58–70; RESP 18–20; TEMP 36–38; O2SAT 93–96
[2024-02-17] MEDS: Normal Saline Flush 10 ML SYR IVP ×3 (00:14→20:05)
[2024-02-17] MEDS: Losartan 50 MG TAB 100 MG PO ×2 (00:15→20:04)
[2024-02-17] MEDS: Normal Saline 1,000 ML 125 ML IV (00:15)
[2024-02-17] MEDS: Pravastatin 40 MG TAB 80 MG PO ×2 (00:15→20:05)
[2024-02-17] MEDS: Aspirin E.C. 81 MG TABEC PO ×2 (00:15→20:03)
[2024-02-17 06:52] LABS: HCT 29.1 % (36.0-46.0); HGB 9.4 g/dL (11.2-15.7); MCH 35.5 pg (27.0-33.0); MCHC 32.3 % (32.0-36.0); MCV 110 fL (80-95); MPV 9.3 fL (8.0-11.0); Platelet Count 238 10^3/uL (130-400); RBC 2.65 10^6/uL (3.93-5.22); RDW 11.9 % (11.7-14.6); RDW-SD 47.4 fL; WBC 7.09 10^3/uL (4.4-10.8)
[2024-02-17 07:13] LABS: ALT 21 U/L (14-59); AST 26 U/L (15-37); Albumin 2.7 g/dL (3.4-5.0); Alkaline Phosphatase 62 U/L (46-116); Anion Gap 8.9 mmol/L (3-11); BUN 39 mg/dL (7-18); Bilirubin, Total 0.5 mg/dL (0.2-1.0); CO2 23.1 mmol/L (21.0-32.0); Calcium 8.4 mg/dL (8.5-10.1); Chloride 109 mmol/L (98-107); Estimated GFR 56.25 (mL/min/1.73m2); Glucose 91 mg/dL (74-106); Magnesium 2.2 mg/dL (1.8-2.4); Potassium 4.6 mmol/L (3.5-5.1); Sodium 141 mmol/L (136-145)
[2024-02-17] MEDS: Ascorbic Acid 500 MG TAB PO (08:13)
[2024-02-17] MEDS: Cholecalciferol (Vitamin D3) 1,000 UNIT TAB 5000 UNITS PO (08:13)
[2024-02-17] MEDS: Meloxicam 15 MG TAB 7.5 MG PO (08:14)
[2024-02-17] MEDS: Escitalopram 20 MG TAB PO (08:15)
[2024-02-17] MEDS: Multivitamin TAB 1 TAB PO (08:16)
[2024-02-17] MEDS: Vitamin E 400 UNITS CAP PO (08:16)
[2024-02-17 08:39] LABS: Lab Add On Test DONE
[2024-02-17 09:07] LABS: Iron 14 ug/dL (50-170); Total Iron Binding Capacity 244 ug/dL (250-450); Transferrin Sat 6 % (15-50)
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
--- NOTE | 2024-02-17 09:20 | DI.RAD_ITS ---
Exam(s) XR FEMUR RT EXAM: XR FEMUR RT CLINICAL HISTORY: Fall with right hip pain status post right NISA. TECHNIQUE: 2D digital imaging was performed. Four images were obtained. AP and lateral views were o btained. COMPARISON: CR PELVIS AP from 07/11/2014 CR LUMBAR SPINE COMPLETE from 11/08/2016 CR XR sacrum coccyx from 01/25/2019 CR XR lumbar spine complete from 01/25/2019 FINDINGS: BONES: There are stable post operative changes of a right total hip replacement present. No fracture or dislocation. JOINTS: The orthopedic hardware is in good position. No evidence of hardware loosening. SOFT TISSUE: Vascular calcifications are present. IMPRESSION: 1. Stable right total hip replacement. 2. No acute fracture or dislocation. DATA REPOSITORY: RADIATION DOSE DELIVERED:
--- NOTE | 2024-02-17 09:23 | PGE_ITS ---
Date of Service Date of service: 02/17/24 Time of Service: 09:24 Assessment and Plan Assessment and plan (1) Acute dehydration: Start date: 02/16/24 Status: Acute Assessment and plan: Is an 83-year-old lady with increased weakness and confusion over the last couple of days prior to admission with falls the day of admission with possible decreased intake. She did injure her head with CT scan of the head negative for acute processes. Chest x-ray showed no pneumonia though the patient does test positive for influenza A. She also had a mild fever which may be contributing to her decompensation. Her urine was positive and she was initiated on therapy for UTI as well as the flu. She was respond to IV hydration with her renal function slightly over her normal and labs will be trended. Once patient is stronger she will have PT and OT evaluate for stability. She is a full code. Patient showing improvement in her acute prerenal azotemia. BUN came down from 52-39 creatinine came down from 1.4-1.0. Until we are certain she is taking adequate oral intake I will continue IV fluids with LR at 100 MLS and LR x 1 more liter. It turns out she is taking good oral intake we can stop her IV fluids. (2) UTI (urinary tract infection): Start date: 02/16/24 Status: Acute Assessment and plan: Continue Rocephin, pending results of urine and blood cultures. Qualifiers: Urinary tract infection type: acute cystitis Hematuria presence: with hematuria Qualified Code(s): N30.01 - Acute cystitis with hematuria (3) Influenza A: Start date: 02/16/24 Status: Acute Assessment and plan: Continue Tamiflu with adjustment for renal insufficiency. (4) Fall: Start date: 02/16/24 Status: Acute Assessment and plan: Sounds like her fall was a mechanical fall probably precipitated by dehydration and generalized weakness. Will continue telemetry for 24 hours if there is no arrhythmias. Telemetry monitoring. Qualifiers: Encounter type: initial encounter Qualified Code(s): W19.XXXA - Unspecified fall, initial encounter (5) Acute right hip pain: Start date: 02/16/24 Status: Acute Assessment and plan: Palpable tenderness over the right femoral head with bruising over the same area. I looked at the x-ray myself did not see any disruption of her prosthesis however in the waiting official read from radiology. If the reading is indeterminate we will get a CT scan of the right hip and consult with orthopedics. (6) Cognitive decline: Status: Chronic Assessment and plan: Patient does have chronic mild dementia but this appears to not be causing dysfunction at home at this time. Mental status did worsen with her acute processes. Continue to monitor. Subjective Subjective Interval history since last seen: 83-year-old female with a history of mild cognitive impairment and hypertension had a mechanical fall landing on her right side while tripping over her cat's water bowl yesterday. It is unclear whether there was loss of consciousness or not. This been preceded by 2 to 3 days of confusion and cough and fever. Patient was subsequently found to have influenza A although her chest x-ray last night did not show any infiltrates. Patient was noted to be dehydrated with elevated BUN and creatinine 50-1.4 was started on IV fluids. BUN and creatinine subsequently improved to 39 and 1.0. She was noted to be anemic hemoglobin 9.4 g hematocrit 29%. It appears that she has been chronically anemic with elevated MCV. She was also found to have a urinary tract infection was started on Rocephin. CT of her head was performed last night showed no acute intracranial process. Unfortunately no x-rays was done of her pelvis or hip and after admission she was complaining of right hip pain. Per the senior office assistant exam last night there is no increased pain with internal/external rotation of the right hip however this morning she does have pain on palpation of the right hip and has bruising over that site. She has had a previous total hip replacement on that side. X-rays pending at this time. Exam Narrative Exam Narrative: Judi is very hard of hearing but she seems to be alert and recognize me as a doctor and seems to know she is in the hospital and remembers having a fall. She is vague on the details of the fall except that she remembers tripping over the Water bowl. HEENT is remarkable for bruise over the right neck, there is no ecchymosis over orbits. Full extraocular motions intact no facial asymmetry no dysarthric speech she is hard of hearing Lungs with some scattered expiratory wheezes Heart is regular rate and rhythm Review of telemetry shows Rhythm to be sinus rhythm at rates of 60 to 84 bpm Abdomen soft nontender nondistended normal bowel sounds Extremities she has a scar of the right hip from previous total hip arthroplasty there is bruising and palpable tenderness over the right femoral head. She has no peripheral edema or peripheral cyanosis. No pain with range of motion testing with hip flexion or extension or internal/external rotation Objective Last Vital Signs Temp 36.6 C 02/17/24 07:36 Pulse 68 02/17/24 07:36 Resp 19 02/17/24 07:36 BP 135/73 02/17/24 07:36 Pulse Ox 93 02/17/24 07:36 Laboratory Results - last 24 hr 02/16/24 02/16/24 02/16/24 18:35 19:29 19:40 WBC 8.01 RBC 3.03 L Hgb 10.7 L Hct 33.1 L MCV 109 H MCH 35.3 H MCHC 32.3 RDW 11.8 Plt Count 285 MPV 9.2 Immature Gran % 0.6 Neutrophils % 79.3 Lymphocytes % 7.7 Monocytes % 12.1 Eosinophils % 0.1 Basophils % 0.2 Nucleated RBC % 0.0 Absolute Neutrophils 6.34 Absolute Lymphocytes 0.62 L Absolute Monocytes 0.97 H Absolute Eosinophils 0.01 Absolute Basophils 0.02 RBC Morphology See Below Macrocytosis 1+ VBG Lactate 2.3 H* Sodium 137 Potassium 4.4 Chloride 102 Carbon Dioxide 22.1 Anion Gap 12.9 H BUN 52 H Creatinine 1.4 H Est GFR (CKD-EPI 2020) 37.56 Glucose 194 H Calcium 9.4 Magnesium Iron TIBC Transferrin % Sat Total Bilirubin 1.0 AST 25 ALT 26 Alkaline Phosphatase 79 Total Protein 7.4 Albumin 3.4 Lipase 39 Urine Color Urine Clarity Urine pH Ur Specific [place] Urine Protein Urine Ketones Urine Blood Urine Nitrite Urine Bilirubin Urine Urobilinogen Ur Leukocyte Esterase Urine RBC Urine WBC Ur Epithelial Cells Urine Crystals Urine Bacteria Urine Mucus Ur Culture Indicated? Urine Glucose COVID-19 Source Nasopharynx SARS-CoV-2 (PCR) Negative Influenza Type A (PCR) Positive A Influenza Type B (PCR) Negative RSV (PCR) Negative Add-On Test Request 02/16/24 02/16/24 02/17/24 20:37 21:37 06:10 WBC 7.09 RBC 2.65 L Hgb 9.4 L Hct 29.1 L MCV 110 H MCH 35.5 H MCHC 32.3 RDW 11.9 Plt Count 238 MPV 9.3 Immature Gran % Neutrophils % Lymphocytes % Monocytes % Eosinophils % Basophils % Nucleated RBC % Absolute Neutrophils Absolute Lymphocytes Absolute Monocytes Absolute Eosinophils Absolute Basophils RBC Morphology Macrocytosis VBG Lactate 0.9 Sodium 141 Potassium 4.6 Chloride 109 H Carbon Dioxide 23.1 Anion Gap 8.9 BUN 39 H Creatinine 1.0 Est GFR (CKD-EPI 2020) 56.25 Glucose 91 Calcium 8.4 L Magnesium 2.2 Iron 14 L TIBC 244 L Transferrin % Sat 6 L Total Bilirubin 0.5 AST 26 ALT 21 Alkaline Phosphatase 62 Total Protein 6.0 L Albumin 2.7 L Lipase Urine Color Yellow Urine Clarity Turbid Urine pH 5.5 Ur Specific [place] 1.015 Urine Protein 100 H Urine Ketones Negative Urine Blood Large H Urine Nitrite Negative Urine Bilirubin Negative Urine Urobilinogen 0.2 Ur Leukocyte Esterase Large H Urine RBC Not Applicable Urine WBC >50 H Ur Epithelial Cells Not Applicable Urine Crystals Not Applicable Urine Bacteria Not Applicable Urine Mucus Not Applicable Ur Culture Indicated? Yes Urine Glucose Negative COVID-19 Source SARS-CoV-2 (PCR) Influenza Type A (PCR) Influenza Type B (PCR) RSV (PCR) Add-On Test Request 02/17/24 08:38 WBC RBC Hgb Hct MCV MCH MCHC RDW Plt Count MPV Immature Gran % Neutrophils % Lymphocytes % Monocytes % Eosinophils % Basophils % Nucleated RBC % Absolute Neutrophils Absolute Lymphocytes Absolute Monocytes Absolute Eosinophils Absolute Basophils RBC Morphology Macrocytosis VBG Lactate Sodium Potassium Chloride Carbon Dioxide Anion Gap BUN Creatinine Est GFR (CKD-EPI 2020) Glucose Calcium Magnesium Iron TIBC Transferrin % Sat Total Bilirubin AST ALT Alkaline Phosphatase Total Protein Albumin Lipase Urine Color Urine Clarity Urine pH Ur Specific [place] Urine Protein Urine Ketones Urine Blood Urine Nitrite Urine Bilirubin Urine Urobilinogen Ur Leukocyte Esterase Urine RBC Urine WBC Ur Epithelial Cells Urine Crystals Urine Bacteria Urine Mucus Ur Culture Indicated? Urine Glucose COVID-19 Source SARS-CoV-2 (PCR) Influenza Type A (PCR) Influenza Type B (PCR) RSV (PCR) Add-On Test Request DONE Time Spent with Patient Time Spent with Patient: 25-34 minutes Time was spent: preparing to see the patient(eg.review tests), ordering medications,tests, procedures, referring, communicating with other health child care centre director, indepentently interpreting results and care coordination
[2024-02-17 09:35] LABS: Ferritin 182 ng/mL (8-252); Vitamin B12 1013 pg/mL (193-986)
[2024-02-17 09:42] LABS: Folate > 20.0 ng/mL (8.6-20.0)
[2024-02-17] MEDS: Oseltamivir 30 MG CAP PO ×2 (10:16→20:05)
[2024-02-17] MEDS: Enoxaparin 40 MG/0.4 ML SYR SC (10:17)
[2024-02-17] MEDS: Vitamins B Comp w/C TAB 1 TAB PO (10:17)
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
--- NOTE | 2024-02-17 17:09 | CHAPLAIN ---
Judi lives alone. She has mild dementia and in the past couple of days has had increased confusion and fall, according to the physician's note. When I visited there was a friend or family member there who explained that Judi doesn't have her hearing aids with her so she wasn't catching a lot that people were saying to her. I explained my role and offered support.
[2024-02-17] MEDS: Acetaminophen 325 MG TAB PO (20:03)
[2024-02-17] MEDS: cefTRIAXone 1 GM/50 ML BAG IVPB (20:04)
[2024-02-18] VITALS (8 sets, daily range): BP systolic 118–165; BP diastolic 65–75; PULSE 62–82; RESP 5–20; TEMP 36.6–37.2; O2SAT 91–96
--- NOTE | 2024-02-18 | DI.CT_ITS ---
Exam(s) CT PELVIC WO EXAM: CT PELVIC WO CLINICAL HISTORY: right hip pain s/p fall. TECHNIQUE: Imaging Protocol: Axial computed tomography images with coronal and sagittal reformatted images were created and reviewed. COMPARISON: CR PELVIS AP from 07/11/2014 CR LUMBAR SPINE COMPLETE from 11/08/2016 CR XR sacrum coccyx from 01/25/2019 CR XR lumbar spine complete from 01/25/2019 CR XR FEMUR RT from 02/17/2024 FINDINGS: Bones: The osseous structures and articular surfaces are intact. The patient has a right total hip replacement. No suspicious lucencies are seen in or about the orthopedic hardware to suggest looseni ng or fracture. The sacroiliac joints and symphysis pubis are unremarkable. There are degenerative changes seen at the left hip and in the lower lumbar spine. No lytic or sclerotic lesions are identi fied. Soft Tissues: Diverticulosis of the colon is present. Vascular calcifications are present. IMPRESSION: No definite acute fracture or dislocation. If there is continued clinical concern, a repeat CT scan or x-ray may be obtained.. RADIATION DOSE DELIVERED: Total DLP Total DLP DATA REPOSITORY: All CT scans at this facility are submitted to the National Radiology Data Registry (NRDR) Dose Index Registry (DIR) with the [employer] [place] [employer] (ACR). RADIATION OPTIMIZATION: All CT scans at this facility use at least one of these dose optimization te chniques: automated exposure control; mA and/or kV adjustment per patient size (includes targeted exa ms where dose is matched to clinical indication); or iterative reconstruction.
[2024-02-18 07:18] LABS: Abs Immature Grans 0.03 10^3/uL (0.0-0.06); Absolute Basophil Count 0.04 10^3/uL (0.0-0.2); Absolute Eosinophil Count 0.07 10^3/uL (0.0-0.7); Absolute Lymphocyte Count 1.27 10^3/uL (1.2-3.4); Absolute Monocyte Count 0.71 10^3/uL (0.1-0.8); Absolute Neutrophil Count 4.21 10^3/uL (1.2-6.7); Basophils % 0.6; Eosinophils % 1.1; HCT 33.3 % (36.0-46.0); HGB 10.6 g/dL (11.2-15.7); Immature Grans % 0.5; Lymphocytes % 20.1; MCH 35.3 pg (27.0-33.0); MCHC 31.8 % (32.0-36.0); MCV 111 fL (80-95); MPV 9.2 fL (8.0-11.0); Monocytes % 11.2; Neutrophils % 66.5; Platelet Count 219 10^3/uL (130-400); RDW 11.7 % (11.7-14.6); RDW-SD 48.1 fL; WBC 6.33 10^3/uL (4.4-10.8)
[2024-02-18 07:34] LABS: BUN 26 mg/dL (7-18); Chloride 108 mmol/L (98-107); Estimated GFR 56.25 (mL/min/1.73m2); Glucose 93 mg/dL (74-106); Potassium 4.5 mmol/L (3.5-5.1); Sodium 141 mmol/L (136-145)
[2024-02-18] MEDS: Vitamins B Comp w/C TAB 1 TAB PO (10:22)
[2024-02-18] MEDS: Cholecalciferol (Vitamin D3) 1,000 UNIT TAB 5000 UNITS PO (10:24)
[2024-02-18] MEDS: Meloxicam 15 MG TAB 7.5 MG PO (10:24)
[2024-02-18] MEDS: Oseltamivir 30 MG CAP PO ×2 (10:25→21:23)
[2024-02-18] MEDS: Escitalopram 20 MG TAB PO (10:25)
[2024-02-18] MEDS: Multivitamin TAB 1 TAB PO (10:25)
[2024-02-18] MEDS: Normal Saline Flush 10 ML SYR IVP (10:26)
[2024-02-18] MEDS: Enoxaparin 40 MG/0.4 ML SYR SC (10:29)
[2024-02-18] MEDS: Vitamin E 400 UNITS CAP PO (11:08)
--- NOTE | 2024-02-18 15:15 | PGE_ITS ---
Date of Service Date of service: 02/18/24 Time of Service: 15:15 Assessment and Plan Assessment and plan (1) Acute dehydration: Start date: 02/16/24 Status: Acute Assessment and plan: continue iv fluids until she is taking adequate po. (2) UTI (urinary tract infection): Start date: 02/16/24 Status: Acute Assessment and plan: blood culture no growth to date urine culture + for E. coli. continue Rocephin Qualifiers: Urinary tract infection type: acute cystitis Hematuria presence: with hematuria Qualified Code(s): N30.01 - Acute cystitis with hematuria (3) Influenza A: Start date: 02/16/24 Status: Acute Assessment and plan: Continue Tamiflu with adjustment for renal insufficiency. (4) Fall: Start date: 02/16/24 Status: Acute Assessment and plan: Sounds like her fall was a mechanical fall probably precipitated by dehydration and generalized weakness. No arrhythmias therefore likely mechanical fall. dc telemetry Qualifiers: Encounter type: initial encounter Qualified Code(s): W19.XXXA - Unspecified fall, initial encounter (5) Acute right hip pain: Start date: 02/16/24 Status: Acute Assessment and plan: still w/ tenderness over the right hip joint. probably just a contusion, plain film Xray was negative for any fracture or hardware disruption. will check CT of her pelvis just to be sure. I could not elicit pain w/ ROM therefore doubt (6) Cognitive decline: Status: Chronic Assessment and plan: Patient does have chronic mild dementia but this appears to not be causing dysfunction at home at this time. Mental status did worsen with her acute proc esses. Continue to monitor. Subjective Subjective Interval history since last seen: Patient feels weak today. She did not get out of bed for P.T. this morning. She has harsh moist cough. She is not visibly dyspnea. She remembers me but does not recall much details of my visit yesterday. She recalls her fall at home. Right hip is still sore but xray did not show any disruption of her R. TKA. Exam Narrative Exam Narrative: Patient is awake, oriented to herself, recognizes me as her doctor and knows that she is in the hospital She is not in acute respiratory distress. She has a very moist cough but unable to mobilize Lungs: bilateral wheezes and rhonchi Heart: RRR Abdomen: soft, nontender R. hip is photographer still to touch No peripheral edema Objective Last Vital Signs Temp 37.0 C 02/18/24 07:46 Pulse 63 02/18/24 07:46 Resp 17 02/18/24 07:46 BP 118/65 02/18/24 07:46 Pulse Ox 95 02/18/24 07:46 Laboratory Results - last 24 hr 02/18/24 07:00 WBC 6.33 RBC 3.00 L Hgb 10.6 L Hct 33.3 L MCV 111 H MCH 35.3 H MCHC 31.8 L RDW 11.7 Plt Count 219 MPV 9.2 Immature Gran % 0.5 Neutrophils % 66.5 Lymphocytes % 20.1 Monocytes % 11.2 Eosinophils % 1.1 Basophils % 0.6 Nucleated RBC % 0.0 Absolute Neutrophils 4.21 Absolute Lymphocytes 1.27 Absolute Monocytes 0.71 Absolute Eosinophils 0.07 Absolute Basophils 0.04 Sodium 141 Potassium 4.5 Chloride 108 H Carbon Dioxide 24.0 Anion Gap 9.0 BUN 26 H Creatinine 1.0 Est GFR (CKD-EPI 2020) 56.25 Glucose 93 Calcium 9.0 Time Spent with Patient Time Spent with Patient: 35-49 minutes Time was spent: preparing to see the patient(eg.review tests), ordering medications,tests, procedures, referring, communicating with other health healthcare consultant, indepentently interpreting results, counseling the patient and care coordination
--- NOTE | 2024-02-18 15:26 | PT.INTREAT ---
PT Notes Visit Reasons: Acute Dehydration, Fall, UTI, Influenza A Inpatient Physical Therapy Treatment Note [facility] Date: 02/18/24 SUBJECTIVE: Fidelina reports that she is frustrated with being in the hospital. She doesn't understand how she managed to fall. refuses to get out of bed claiming the timing is not right. OBJECTIVE: []? VITALS: ?monitored by nursing. ? Therapeutic Exercises ([id number]): Direct one-on-one instruction in therapeutic exercises to develop strength, endurance, range of motion and flexibility. ? Exercises ?Supine: AP, QS, SAQ, heel slides and SLR (min assisted on right) mini bridging x10. modified sit up x5. ASSESSMENT:?unable to get her OOB this pm. She did participate in ex routine with good effort. PLAN: attempt OOB tomorrow am. Will continue to work on her strength and functional mobility to tolerance following PT POC. TREATMENT CODE/TIME: 19 min [id number]
[2024-02-18] MEDS: Albuterol/Ipratropium 3 ML UPD VIAL UPD ×2 (16:24→20:50)
--- NOTE | 2024-02-18 17:09 | PDOC.CMPRO ---
Date of service: 02/18/24 Time of Service: 17:09 Care Management Progress Note Progress Note Text Progress Note Text: S/O: Judi remains inpatient, she was lying in bed when CM met with her. Judi was NENANA as she did not have her hearing aides in. She shared feelings of frustration, but shared she was feeling well supported by her zoroastrian and family. CM spoke with Judi's son Hussein who agreed to discuss PT recommendations with Judi for SNF upon discharge. Hussein was hopeful that during hospitalization, Judi would be able to gain back some strength and return home with home health support. He stated that prior to this fall, Judi had not fallen in over a year and was ambulating pretty steadily with the support of a FWW. He stated that if rehab was the best option, the family and Juid would prefer a short stay only. CM continues to follow. A: 83 year old female admitted to [facility] 02/16/24 for acute dehydration, fall, UTI, Influenza A P: Hussein will review discharge considerations with his mother and his during their evening visit. CM and Hussein scheduled trust manager assistant phone call to discuss updates. Anticipate Judi will discharge home with new orders for [facility]NA PT-vs-SNF dependent on progress during hospitalization. CM continues to follow. SDOH(Care Management) Screening Will the Patient Participate in the Screening?: Unable to obtain
[2024-02-18] MEDS: Pravastatin 40 MG TAB 80 MG PO (21:23)
[2024-02-18] MEDS: guaiFENesin 600 MG TABCR PO (21:23)
[2024-02-18] MEDS: Losartan 50 MG TAB 100 MG PO ×2 (21:23→21:38)
[2024-02-18] MEDS: Aspirin E.C. 81 MG TABEC PO ×2 (21:23→21:38)
[2024-02-18] MEDS: cefTRIAXone 1 GM/50 ML BAG IVPB (21:24)
[2024-02-19 06:49] LABS: Abs Immature Grans 0.02 10^3/uL (0.0-0.06); Absolute Basophil Count 0.01 10^3/uL (0.0-0.2); Absolute Monocyte Count 0.55 10^3/uL (0.1-0.8); Absolute Neutrophil Count 3.54 10^3/uL (1.2-6.7); Basophils % 0.2; Eosinophils % 1.9; HCT 30.3 % (36.0-46.0); HGB 9.7 g/dL (11.2-15.7); Immature Grans % 0.4; Lymphocytes % 20.7; MCV 109 fL (80-95); MPV 9.1 fL (8.0-11.0); Monocytes % 10.3; Neutrophils % 66.5; Platelet Count 216 10^3/uL (130-400); RBC 2.77 10^6/uL (3.93-5.22); RDW 11.4 % (11.7-14.6); WBC 5.32 10^3/uL (4.4-10.8)
[2024-02-19 07:07] LABS: Anion Gap 10.5 mmol/L (3-11); BUN 22 mg/dL (7-18); CO2 23.5 mmol/L (21.0-32.0); Calcium 8.7 mg/dL (8.5-10.1); Chloride 108 mmol/L (98-107); Estimated GFR 56.25 (mL/min/1.73m2); Glucose 92 mg/dL (74-106); Potassium 4.3 mmol/L (3.5-5.1); Sodium 142 mmol/L (136-145)
[2024-02-19 08:03] VITALS: BP 128/78; PULSE 66; RESP 16; TEMP 36.6; O2SAT 95
[2024-02-19] MEDS: Normal Saline Flush 10 ML SYR IVP ×2 (08:07→21:27)
[2024-02-19] MEDS: Cholecalciferol (Vitamin D3) 1,000 UNIT TAB 5000 UNITS PO (08:08)
[2024-02-19] MEDS: Vitamin E 400 UNITS CAP PO (08:08)
[2024-02-19] MEDS: Oseltamivir 30 MG CAP PO ×2 (08:08→21:23)
[2024-02-19] MEDS: Vitamins B Comp w/C TAB 1 TAB PO (08:08)
[2024-02-19] MEDS: Acetaminophen 325 MG TAB PO ×2 (08:08→21:22)
[2024-02-19] MEDS: guaiFENesin 600 MG TABCR PO ×2 (08:09→21:24)
[2024-02-19] MEDS: Escitalopram 20 MG TAB PO (08:09)
[2024-02-19] MEDS: Multivitamin TAB 1 TAB PO (08:09)
[2024-02-19] MEDS: Meloxicam 15 MG TAB 7.5 MG PO (08:09)
[2024-02-19] MEDS: Albuterol/Ipratropium 3 ML UPD VIAL UPD ×3 (08:10→20:28)
[2024-02-19 08:40] VITALS: PULSE 82; RESP 18; RESP 2; RESP 9; O2SAT 95
[2024-02-19] MEDS: Enoxaparin 40 MG/0.4 ML SYR SC (10:31)
--- NOTE | 2024-02-19 11:42 | PT.INTREAT ---
PT Notes Visit Reasons: Acute Dehydration, Fall, UTI, Influenza A Physical Therapy Inpatient Treatment Note Date: 02/19/2024 Precautions: Fall. Standard. Activity as tolerated. Droplet precautions for Influenza A in place. Subjective: Feels much better. Agreed that she does better getting out from the right side of the bed. NOt as anxious as she was two days ago about getting out of bed. Objective: General Observation: Supine in bed. Telemetry monitoring in place. Winters catheter in place. Mental Status: Alert and oriented as to person. Fearful of moving in bed, anxious that she might fall off. Able to follow single-step commands. Thoughts sometimes tangential, unrelated to topic at hand. Pain: R shoulder when asked to move Vital Signs: Rajendra monitored by Nurse Jill Bed Mobility/Transfers: Moderate cueing provided for use of B hands as needed for support, movement sequence, AD management, and posture to reduce fall risk and minimize pain report Supine to sit minimal assist Sit to stand minimal assist Stand to sit minimal assist and contact guard assist of SCHOOL COORDINATOR Haleigh Bed to reclining minimal assist and contact guard assist of SCHOOL COORDINATOR Haleigh Gait: 5 steps using FWW with minimal assist and contact guard assist of SCHOOL COORDINATOR Haleigh. Gait asymmetric. Mildly shaky but LOB. No report of pain during transfer. Balance: Static Sitting: Good Dynamic Sitting: Good Static Standing: Fair Dynamic Standing: Fair Assessment: Now less anxious, cognition much improved. Patient's overall ability to follow instruction considerably increased. Gait pattern unsafe and patient will require assist of 1 for safety. Goals: Goals X1 week 1. Supine-Sit independent 2. Sit-Supine independent 3. Sit-Stand independent 4. Stand-Sit independent with FWW 5. Bed-Chair independent with FWW 6. Chair-Bed independent with FWW 7. Independent gait on level surface with use of FWW for at least 150 feet without report of pain nor dyspnea 8. Independent with home exercise program 9. Good static and dynamic standing balance/tolerance Plan of Care/Treatment Plan: 1-2x/day, 7 days/week x 1 week. Gradually progress activity level to tolerance. Plan of care has been reviewed with the DIGITAL ACCOUNT MANAGER providing the service under Physical Therapy direction. Initiate Physical Therapy intervention for pain management as needed, strengthening, bed mobility, transfers, gait, stairs, balance training, and use of assistive device. DISCHARGE RECOMMENDATIONS: [] Home with no services [] [] Home with services [] [] Home with outpatient PT [] [] SNF for continued rehabilitation [] [] Longterm Care [] [] SNF versus LTC based on ability to participate and progress [] [X] SNF vs PT based on progress towards goals TREATMENT CODE/TIME: 46547 x 25 minutes for 2 units (11:42-12:07).
[2024-02-19 13:24] VITALS: PULSE 78; RESP 18; RESP 2; RESP 9; O2SAT 95
--- NOTE | 2024-02-19 16:21 | PHA.REVIEW2 ---
Pharmacy Admission Review Admission Clinical Review Admission Pharmacy Review: Acute right hip pain (Acute) Influenza A (Acute) Fall (Acute) Acute dehydration (Acute) UTI (urinary tract infection) (Acute) simvastatin Allergy (Unknown, Verified 10/08/23 09:53) Sulfa (Sulfonamide Antibiotics) Adverse Reaction (Severe, Verified 10/08/23 09:53) Diarrhea amoxicillin trihydrate [From Augmentin] Adverse Reaction (Unknown, Verified 10/08/23 09:53) vomit potassium clavulanate [From Augmentin] Adverse Reaction (Unknown, Verified 10/08/23 09:53) vomit Resuscitation Status Full Code Height 5 ft 6 in Weight 78.9 kg Pharmacy Admission Review Renal Dosing Renal Dosing: BUN 22 mg/dL (7-18) H 02/19/24 06:22 Creatinine 1.0 mg/dL (0.55-1.02) 02/19/24 06:22 Medications needing adjustments: Reviewed (CrCl 45.9 mL/min) List of meds needing interventions: Current medications are okay Anticoagulation Anticoagulation: Hgb 9.7 g/dL (11.2-15.7) L 02/19/24 06:22 Hct 30.3 % (36.0-46.0) L 02/19/24 06:22 Plt Count 216 10^3/uL (130-400) 02/19/24 06:22 Creatinine 1.0 mg/dL (0.55-1.02) 02/19/24 06:22 DVT Prophylaxis: Reviewed Medications: Enoxaparin (40mg daily) Relevant Labs Relevant Labs: Sodium 142 mmol/L (136-145) 02/19/24 06:22 Potassium 4.3 mmol/L (3.5-5.1) 02/19/24 06:22 Chloride 108 mmol/L (98-107) H 02/19/24 06:22 Magnesium 2.2 mg/dL (1.8-2.4) 02/17/24 06:10 Electrolytes, C-Reactive P, ESR: Reviewed (BUN decreased from 26 to 22 (was 52 when admitted on 02/16/24), Hgb decreased from 10.6 to 9.7) Cardiac Review BP, HR, EF%: Reviewed (BP/HR WNL) QTc Review QTc: Reviewed (Last EKG on file was from 10/2021) IV to PO Switch IV Medications: Reviewed (ceftriaxone) Home Meds Home Med List reviewed: Intervened Relevent Home Meds Not ordered & why?: Nisoldipine was put in as patients own (non-formulary) have called up to [facility] three times now to see if this could be brought in for the patient. Still have not heard anything. Current Meds Current Medication Order Review: Reviewed Comments: Patient continues on Tamiflu 30mg BID day 4 - order does not have a stop date Pharmacy Antibiotic Review Pharmacy Antibiotic Activity: C/S review and Reviewed, no change Comments: Patient continues on ceftriaxone day 3 for UTI. Blood culture showing no growth at 48 hours, urine culture showing E. coli (no resistance).
--- NOTE | 2024-02-19 16:36 | PGE_ITS ---
Date of Service Date of service: 02/19/24 Time of Service: 16:36 Assessment and Plan Assessment and plan (1) Acute dehydration: Start date: 02/16/24 Status: Resolved Assessment and plan: renal function has returned to normal. patient is eating and drinking. IV fluids have been stopped. (2) UTI (urinary tract infection): Start date: 02/16/24 Status: Acute Assessment and plan: blood culture no growth to date urine culture + for E. coli (pansensitive). continue Rocephin through hospital discharge or 5 days total. Today is day #4. Qualifiers: Hematuria presence: with hematuria Urinary tract infection type: acute cystitis Qualified Code(s): N30.01 - Acute cystitis with hematuria (3) Influenza A: Start date: 02/16/24 Status: Acute Assessment and plan: Continue Tamiflu with adjustment for renal insufficiency. Treat for minimum of 5 days. Today is day # 3 11/25 (was started on evening of 02/15. I would continue through February 20. (4) Fall: Start date: 02/16/24 Status: Acute Assessment and plan: Sounds like her fall was a mechanical fall probably precipitated by dehydration and generalized weakness. No arrhythmias therefore likely mechanical fall. Telemetry has been discontinued. continue to work w/ P.T. Patient has been accepted to [facility] but they can not take her until Friday per CM. Family is open to either [facility] or [facility] in [place] but obviously [facility] would be their first choice as she lives in [place]. Qualifiers: Encounter type: initial encounter Qualified Code(s): W19.XXXA - Unspecified fall, initial encounter (5) Acute right hip pain: Start date: 02/16/24 Status: Acute Assessment and plan: negative CT hip for any fracture. she has been able to ambulate on this leg (6) Cognitive decline: Status: Chronic Assessment and plan: patietn seems to be at her baseline now that she has been rehydrated. (7) DVT prophylaxis: Status: Acute Assessment and plan: currently on enoxaparin (8) Discharge planning issues: Status: Acute Assessment and plan: patient accepted to [facility] for Thursday 02/22. will keep her inpatient for now as she is still completing her antibiotics for her UTI. continue w/ P.T. as inpatient. If she improves enough to return home by the weekend then may not need SNF in which case will dc home w/ home nursing and P.T. Subjective Subjective Interval history since last seen: Her right hip is not as sore as yesterday. She did note to her daughter that her right wrist is sore, however she seems to have good range of motion. She is not dyspneic and not requiring supplemental oxygen. I told her daughter that I feel that she is ready for transition to SNF for further reahab. The patient is agreeable. The daughter indicated that her and her brother preferred choice would be the [facility] in [place], which would be close to her home and her son w/ whom she lives. But if this is not avaiable then [facility] in [place] which is close to her daughter. Daughter did not realize her mother had contusions to her right hip and her jaw and abrasion to her scalp. She asked about whether her mother suffered from concussion. I told her that she was a bit confused at first when she was admitted but seems to be more alert and oriented. I went over her mother CT head and CXR and hip xray and CT of her pelvis results. I told her that there is no evidence for pelvic fracture and CT head was unremarkable. Exam Narrative Exam Narrative: Judi is alert, she has her hearing aids in place now and can hear me better She is in no dyspnea, able to talk in complete paragraphs Face bruise along right lower jaw/neck; right temporal scalp w/ superficial abrasion Lungs: clear Heart: RRR Abdomen: soft, nontender right hip nontender to palpation today Objective Last Vital Signs Temp 36.6 C 02/19/24 08:03 Pulse 78 02/19/24 13:24 Resp 18 02/19/24 13:24 BP 128/78 02/19/24 08:03 Pulse Ox 95 02/19/24 13:24 Laboratory Results - last 24 hr 02/19/24 06:22 WBC 5.32 RBC 2.77 L Hgb 9.7 L Hct 30.3 L MCV 109 H MCH 35.0 H MCHC 32.0 RDW 11.4 L Plt Count 216 MPV 9.1 Immature Gran % 0.4 Neutrophils % 66.5 Lymphocytes % 20.7 Monocytes % 10.3 Eosinophils % 1.9 Basophils % 0.2 Nucleated RBC % 0.0 Absolute Neutrophils 3.54 Absolute Lymphocytes 1.10 L Absolute Monocytes 0.55 Absolute Eosinophils 0.10 Absolute Basophils 0.01 Sodium 142 Potassium 4.3 Chloride 108 H Carbon Dioxide 23.5 Anion Gap 10.5 BUN 22 H Creatinine 1.0 Est GFR (CKD-EPI 2020) 56.25 Glucose 92 Calcium 8.7 Time Spent with Patient Time Spent with Patient: 35-49 minutes Time was spent: preparing to see the patient(eg.review tests), ordering medications,tests, procedures, referring, communicating with other health healthcare associate (including nursing and ), indepentently interpreting results, counseling the patient (including daughter) and care coordination
--- NOTE | 2024-02-19 17:48 | PDOC.CMPRO ---
Date of service: 02/19/24 Time of Service: 17:49 Care Management Progress Note Progress Note Text Progress Note Text: S/O: Judi remains inpatient, she was lying in bed when CM met with her and her son, Hussein. She had her hearing aides in and was able to hear much better. Hussein reviewed recommendations; getting out of bed on the right side with FWW, food choices (help with hearing aides to hear menu items) as Judi is picky and wants to strengthen. Judi and Hussein are agreeable to [facility] referral; CM AA faxed referral, CM called to review referral information as well. Hussein and Judi reiterated, that they would prefer a short stay only. Hussein resides and works within a few miles of the facility. PT reported in afternoon that recommendations made a big difference, and Judi was much more engaged. Recommendations now SNF-vs-VNA. CM received bed offer from [facility] for Friday, related to barriers in admission; no admit MD and no private room for precautions. CM updated MD. CM continues to follow. A: 83 year old female admitted to [facility] 02/16/24 for acute dehydration, fall, UTI, Influenza A P: Anticipate Judi will discharge home with new orders for VNA PT-vs-SNF dependent on progress during hospitalization. Bed offer to the [facility] received for 02/23/24. CM continues to follow. SDOH(Care Management) Screening Will the Patient Participate in the Screening?: Unable to obtain
[2024-02-19 20:28] VITALS: PULSE 68; RESP 18; RESP 2; RESP 5; RESP 9; O2SAT 95
[2024-02-19 20:38] VITALS: PULSE 71; RESP 18; RESP 2; RESP 9; O2SAT 97
[2024-02-19] MEDS: Aspirin E.C. 81 MG TABEC PO (21:23)
[2024-02-19] MEDS: Losartan 50 MG TAB 100 MG PO (21:24)
[2024-02-19] MEDS: Pravastatin 40 MG TAB 80 MG PO (21:25)
[2024-02-19] MEDS: cefTRIAXone 1 GM/50 ML BAG IVPB (21:26)
[2024-02-20 00:49] VITALS: BP 177/92; PULSE 71; RESP 18; TEMP 36.8; O2SAT 94
[2024-02-20 08:11] VITALS: BP 163/66; PULSE 69; RESP 16; TEMP 36.9; O2SAT 92
[2024-02-20 08:30] VITALS: O2SAT 96
[2024-02-20] MEDS: Cholecalciferol (Vitamin D3) 1,000 UNIT TAB 5000 UNITS PO (08:44)
[2024-02-20] MEDS: Vitamins B Comp w/C TAB 1 TAB PO (08:45)
[2024-02-20] MEDS: Multivitamin TAB 1 TAB PO (08:45)
[2024-02-20] MEDS: Meloxicam 15 MG TAB 7.5 MG PO (08:45)
[2024-02-20] MEDS: Vitamin E 400 UNITS CAP PO (08:45)
[2024-02-20] MEDS: guaiFENesin 600 MG TABCR PO ×2 (08:45→19:49)
[2024-02-20] MEDS: Normal Saline Flush 10 ML SYR IVP ×2 (08:46→19:49)
[2024-02-20] MEDS: Escitalopram 20 MG TAB PO (08:46)
--- NOTE | 2024-02-20 08:56 | OT.INNT ---
Occupational Therapy Notes 02/20/24 OT consult received and pts chart was reviewed. OT attempted to consult with pt who was very sick at the moment throwing up. Nursing states that now is not the best time. OT will attempt consult again at another time. Candice Sandra, OTR/L
[2024-02-20] MEDS: Oseltamivir 30 MG CAP PO ×2 (10:24→19:49)
[2024-02-20] MEDS: Enoxaparin 40 MG/0.4 ML SYR SC (10:24)
--- NOTE | 2024-02-20 10:55 | PDOC.CMPRO ---
Date of service: 02/20/24 Time of Service: 10:55 Care Management Progress Note Progress Note Text Progress Note Text: S/O: Judi was sitting in her chair when CM met with her. She is hard of hearing and her hearing aids are currently charging. Judi reports that she has not felt well since last night and vomited this morning. She remains fearful to ambulate since her fall and is working working with PT. Bed offer at the [facility] for Friday was accepted. Anticipate she will remain at [facility] through the weekend, transition to [facility] Friday unless PT clears her to go home with services sooner. A: 83 year old female admitted to [facility] 02/16/24 for acute dehydration, fall, UTI, Influenza A P: Anticipate Judi will discharge home with new orders for VNA PT-vs-SNF dependent on progress during hospitalization. Bed offer to the [facility] on 02/23/24 was accepted by pt. She will need RCT wheelchair van. CM continues to follow. SDOH(Care Management) Screening Will the Patient Participate in the Screening?: Unable to obtain
[2024-02-20] MEDS: Prochlorperazine 5 MG TAB PO (11:56)
[2024-02-20 15:00] VITALS: BP 171/83; PULSE 73; RESP 18; TEMP 37.5; O2SAT 95
--- NOTE | 2024-02-20 16:17 | PT.INTREAT ---
PT Notes Visit Reasons: Acute Dehydration, Fall, UTI, Influenza A Date: 02/20/24 PRECAUTIONS: Fall. Standard. Activity as tolerated. Droplet precautions for Influenza A in place. SUBJECTIVE: pt in recliner when approached for therapy this afternoon, pt very anxious and fearful of falling requiring max persuation to participate with session. pt eventually gave permission. OBJECTIVE: Bruised right jaw area from fall ? VITALS: monitored by nursing ? Therapeutic Activities [id number]: Direct one-on-one instruction in dynamic activities to improve functional performance. ?? BED MOBILITY/TRANSFERS? Rolling L/R: min A Supine-sit: min A? Sit-supine: ? supervision? Sit-stand: ? mod A? Stand-sit: ??mod A ? Bed-Chair:? Max A?(stand pivot) ? Chair-bed: Max A (Stand pivot) Provided skilled cues and instruction on performance and technique throughout. ? Therapeutic Exercises [id number]: Direct one-on-one instruction in therapeutic exercises to develop strength, endurance, range of motion and flexibility. Exercises: Side to side movement on the EOB 5x Upward movement in bed Rolling side to side Supine heel slides [id number] Supine clamshells [id number] Supine SLR [id number]? Provided skilled instruction in proper exercise performance Provided skilled manual cues to facilitate proper muscle recruitment and/or form: ASSESSMENT:?Pt assistance with donning footwear to prevent foot from slipping with just non-skid socks, pt only allowed stand pivot transfer going from recliner to EOB due to pt being very anxious with FWW usage. PLAN: Continue with balance training, global strengthening and general conditioning for improved safety, mobility and activity tolerance until pt is ready for DC. TREATMENT CODE/TIME: [id number], [id number] 25mins (2:15-2:40pm)
--- NOTE | 2024-02-20 16:33 | W.PM.PROGNOT ---
Date of Service Date of service: 02/20/24 Time of Service: 17:00 Assessment and Plan Assessment and plan (1) UTI (urinary tract infection): Start date: 02/16/24 Status: Acute Assessment and plan: blood culture no growth to date urine culture + for E. coli (pansensitive). continue Rocephin through hospital discharge or 5 days total. Today is day #5, consider dc antibiotics after today Qualifiers: Urinary tract infection type: acute cystitis Hematuria presence: with hematuria Qualified Code(s): N30.01 - Acute cystitis with hematuria (2) Influenza A: Start date: 02/16/24 Status: Acute Assessment and plan: Continue Tamiflu with adjustment for renal insufficiency. Treat for minimum of 5 days. Today is day # 4 11/25 (was started on evening of 02/15. I would continue through February 20. (3) Fall: Start date: 02/16/24 Status: Acute Assessment and plan: continue to work w/ P.T. the plan is for discharge to [facility] on Friday Qualifiers: Encounter type: initial encounter Qualified Code(s): W19.XXXA - Unspecified fall, initial encounter (4) Acute right hip pain: Start date: 02/16/24 Status: Acute Assessment and plan: negative CT hip for any fracture. she has been able to ambulate on this leg (5) Cognitive decline: Status: Chronic Assessment and plan: patietn seems to be at her baseline now that she has been rehydrated. (6) DVT prophylaxis: Status: Acute Assessment and plan: currently on enoxaparin (7) Discharge planning issues: Status: Acute Assessment and plan: patient accepted to [facility] for Thursday 02/22. will keep her inpatient for now as she is still completing her antibiotics for her UTI. continue w/ P.T. as inpatient. If she improves enough to return home by the weekend then may not need SNF in which case will dc home w/ home nursing and P.T. Subjective Subjective Interval history since last seen: Patient w/ nausea today, treated w/ compazine. NO further emesis this afternoon but did so this morning . No abdominal pain. She seems to be able to take po liquids this afternoon. Exam Narrative Exam Narrative: She is alert but she is not as perky as yesterday. No emesis while I was visiting her. Lungs: clear Heart: regular Abdomen: non-distended, non-tender, normal bowel sounds Extremites: trace of pedal and pretibial edema, no cyanosis Objective Last Vital Signs Temp 37.5 C 02/20/24 15:00 Pulse 73 02/20/24 15:00 Resp 18 02/20/24 15:00 BP 171/83 H 02/20/24 15:00 Pulse Ox 95 02/20/24 15:00 Time Spent with Patient Time Spent with Patient: 25-34 minutes Time was spent: preparing to see the patient(eg.review tests), ordering medications,tests, procedures, referring, communicating with other health healthcare prof, indepentently interpreting results, counseling the patient and care coordination
[2024-02-20] MEDS: Acetaminophen 325 MG TAB PO (19:49)
[2024-02-20] MEDS: Pravastatin 40 MG TAB 80 MG PO (19:49)
[2024-02-20] MEDS: Aspirin E.C. 81 MG TABEC PO (21:14)
[2024-02-20] MEDS: Losartan 50 MG TAB 100 MG PO (21:14)
[2024-02-20] MEDS: cefTRIAXone 1 GM/50 ML BAG IVPB (21:14)
[2024-02-20 23:54] VITALS: BP 168/82; PULSE 73; RESP 18; TEMP 37.3; O2SAT 94
[2024-02-21 06:58] LABS: Abs Immature Grans 0.03 10^3/uL (0.0-0.06); Absolute Basophil Count 0.03 10^3/uL (0.0-0.2); Absolute Eosinophil Count 0.33 10^3/uL (0.0-0.7); Absolute Lymphocyte Count 1.35 10^3/uL (1.2-3.4); Absolute Monocyte Count 0.64 10^3/uL (0.1-0.8); Absolute Neutrophil Count 3.45 10^3/uL (1.2-6.7); Basophils % 0.5; Eosinophils % 5.7; HCT 33.9 % (36.0-46.0); HGB 10.8 g/dL (11.2-15.7); Immature Grans % 0.5; Lymphocytes % 23.2; MCH 34.8 pg (27.0-33.0); MCHC 31.9 % (32.0-36.0); MCV 109 fL (80-95); MPV 8.8 fL (8.0-11.0); Neutrophils % 59.1; Platelet Count 224 10^3/uL (130-400); RDW 11.3 % (11.7-14.6); RDW-SD 45.4 fL; WBC 5.83 10^3/uL (4.4-10.8)
[2024-02-21 07:49] VITALS: BP 191/89; PULSE 71; RESP 15; TEMP 37.4; O2SAT 97
[2024-02-21] MEDS: guaiFENesin 600 MG TABCR PO ×2 (09:06→21:40)
[2024-02-21] MEDS: Escitalopram 20 MG TAB PO (09:06)
[2024-02-21] MEDS: Meloxicam 15 MG TAB 7.5 MG PO (09:06)
[2024-02-21] MEDS: Enoxaparin 40 MG/0.4 ML SYR SC (09:06)
[2024-02-21] MEDS: Oseltamivir 30 MG CAP PO ×2 (09:07→21:41)
[2024-02-21] MEDS: Vitamin E 400 UNITS CAP PO (09:07)
[2024-02-21] MEDS: Vitamins B Comp w/C TAB 1 TAB PO (09:07)
[2024-02-21] MEDS: Multivitamin TAB 1 TAB PO (09:08)
[2024-02-21] MEDS: Cholecalciferol (Vitamin D3) 1,000 UNIT TAB 5000 UNITS PO (09:08)
[2024-02-21] MEDS: Normal Saline Flush 10 ML SYR IVP ×2 (09:09→21:40)
[2024-02-21] MEDS: amLODIPine 5 MG TAB PO (11:59)
--- NOTE | 2024-02-21 12:59 | PTTR_ITS ---
Date of service: 02/21/24 Time of Service: 11:00 PT Notes Visit Reasons: Acute Dehydration, Fall, UTI, Influenza A Inpatient Physical Therapy Treatment Note [facility] Date: 02/21/2024 PRECAUTIONS: Fall, Stand, Droplet precautions for influenza A in place SUBJECTIVE: Stated she is very fearful of falling. Does not want to get out of chair, but willing to get up with nursing and myself to walk short distance back to chair from commode. OBJECTIVE: ? PAIN: Complaining of right lateral ankle and dorsum of foot being very sore today, upon palpation of ATF lig region. Noted soreness when standing on right LE as well. Also, complaining of right knee sensitivity with quad and glut sets. Therapeutic Exercises ([id number]): Direct one-on-one instruction in therapeutic exercises to develop strength, endurance, range of motion and flexibility. ? Exercises ? Performed seated ankle pumps x 10 reps, quad and glut sets x 10 reps each, seated hip abd/adduction 10 reps x 2 sets with assist, heel slides 10 reps x 2 sets with assist, as well as UE rows, horizontal abduction/ adduction and bicep curls for 10 reps each. Provided skilled instruction in proper exercise performance Provided skilled manual cues to facilitate proper muscle recruitment and/or form Therapeutic Activities ([id number]): Direct one-on-one instruction in dynamic activities to improve functional performance. ? BED MOBILITY/TRANSFERS? Up in chair when I arrived today. Nurse Tino indicated she was gotten up early this morning and transferred into recliner with assist.? Sit-stand: Mod assist of 2, very nervous of falling. Verbal cueing for pushing up from arms of chair.? Stand-sit: Min assist of 2, requiring repeated verbal cueing to reach back to hold onto arm of chair.? Provided skilled cues and instruction on performance and technique throughout. GAIT? Assistive Device: FWW? Weight bearing: Full Assist: CGA of 2 ? Distance:? 2 ft forward, f/b backing up to chair to sit.? Deviation: Very short guarded steps. Tends to keep hips flexed rather than bring buttock directly under her to allow her to stand up straight. Did integration software engineer front of commode with FWW for several minutes to have buttock region cleansed and able to go sit to stand to allow for better positioning in recliner for approximately 1 minute.?Static standing required a great deal of encouragement and verbal/ tactile cueing to maintain standing posture. ? ASSESSMENT:? Extremely fearful of falling again. Needs significant encouragement to move out of her bed and chair. Did indicate she is going to rehab prior to home for strengthening. PLAN: Continue with supervising PT's POC with focus on improved ambulation and strengthening of bilateral LE / UE for ADL activities. TREATMENT CODE/TIME: 40040 and 58594,
[2024-02-21 15:49] VITALS: BP 123/69; PULSE 74; RESP 17; TEMP 37.4; O2SAT 96
--- NOTE | 2024-02-21 17:10 | W.PM.PROGNOT ---
Date of Service Date of service: 02/21/24 Time of Service: 17:10 Assessment and Plan Assessment and plan (1) UTI (urinary tract infection): Start date: 02/16/24 Status: Acute Assessment and plan: blood culture no growth to date urine culture + for E. coli (pansensitive). continue Rocephin through hospital discharge Today is day #6, As she had no bacteremia I think we can stop antibiotics now. Qualifiers: Hematuria presence: with hematuria Urinary tract infection type: acute cystitis Qualified Code(s): N30.01 - Acute cystitis with hematuria (2) Influenza A: Start date: 02/16/24 Status: Acute Assessment and plan: Continue Tamiflu with adjustment for renal insufficiency. Treat for minimum of 5 days. Today is day # 5 11/25 (was started on evening of 02/15. I will have her finish this out through today and stop it tomorrow morning. (3) Fall: Start date: 02/16/24 Status: Acute Assessment and plan: continue to work w/ P.T. the plan is for discharge to [facility] on Friday. Patient now complaining of right ankle pain although she seems to have adequate range of motion and no evidence of bruising. Nevertheless she did sustain a fall on the right side with bruising of her right face scalp and now complains of right ankle pain we will check an x-ray of her right ankle in the morning. Qualifiers: Encounter type: initial encounter Qualified Code(s): W19.XXXA - Unspecified fall, initial encounter (4) Acute right hip pain: Start date: 02/16/24 Status: Acute Assessment and plan: negative CT hip for any fracture. she has been able to ambulate on this leg (5) Cognitive decline: Status: Chronic Assessment and plan: patietn seems to be at her baseline now that she has been rehydrated. (6) DVT prophylaxis: Status: Acute Assessment and plan: currently on enoxaparin (7) Discharge planning issues: Status: Acute Assessment and plan: patient accepted to [facility] for Thursday 02/22. will keep her inpatient for now as she is still completing her antibiotics for her UTI. continue w/ P.T. as inpatient. If she improves enough to return home by the weekend then may not need SNF in which case will dc home w/ home nursing and P.T. Subjective Subjective Interval history since last seen: Judi is trying to eat more. She ate some of her egg sandwich, some ice cream. Her daughter is feeding her dinner. She complains of everything hurting on the right. Some right ankle pain Exam Narrative Exam Narrative: Judi is sitting up eating dinner, she is cheerful HEENT: bruising along right jaw/neck; abrasion over right temporal region Lungs: clear anteriorly, some faint rales at bases that clears w/ deep breathing Heart: regular Abdomen: soft, nondistended Legs/feet: no pitting edema, she has good ROM of her left ankle and no bruising; left foot she has some limited dorsiflexion of the left foot but I did not elicit any exquisit pain and pedal pulses are intact, no burising or swelling of her foot. Objective Last Vital Signs Temp 37.4 C 02/21/24 15:49 Pulse 74 02/21/24 15:49 Resp 17 02/21/24 15:49 BP 123/69 02/21/24 15:49 Pulse Ox 96 02/21/24 15:49 Laboratory Results - last 24 hr 02/21/24 06:45 WBC 5.83 RBC 3.10 L Hgb 10.8 L Hct 33.9 L MCV 109 H MCH 34.8 H MCHC 31.9 L RDW 11.3 L Plt Count 224 MPV 8.8 Immature Gran % 0.5 Neutrophils % 59.1 Lymphocytes % 23.2 Monocytes % 11.0 Eosinophils % 5.7 Basophils % 0.5 Nucleated RBC % 0.0 Absolute Neutrophils 3.45 Absolute Lymphocytes 1.35 Absolute Monocytes 0.64 Absolute Eosinophils 0.33 Absolute Basophils 0.03 Time Spent with Patient Time Spent with Patient: 25-34 minutes Time was spent: preparing to see the patient(eg.review tests), ordering medications,tests, procedures, referring, communicating with other health director critical care, indepentently interpreting results, counseling the patient (Counseling of the patient's daughter) and care coordination
[2024-02-21] MEDS: cefTRIAXone 1 GM/50 ML BAG IVPB (21:20)
[2024-02-21] MEDS: Pravastatin 40 MG TAB 80 MG PO (21:38)
[2024-02-21] MEDS: Losartan 50 MG TAB 100 MG PO (21:40)
[2024-02-21] MEDS: Aspirin E.C. 81 MG TABEC PO (21:40)
[2024-02-21 21:42] VITALS: BP 149/75; PULSE 71; RESP 20; TEMP 37.1; O2SAT 91
[2024-02-22 07:36] LABS: Abs Immature Grans 0.05 10^3/uL (0.0-0.06); Absolute Basophil Count 0.03 10^3/uL (0.0-0.2); Absolute Eosinophil Count 0.38 10^3/uL (0.0-0.7); Absolute Monocyte Count 0.56 10^3/uL (0.1-0.8); Absolute Neutrophil Count 4.11 10^3/uL (1.2-6.7); Basophils % 0.5; Eosinophils % 5.8; HCT 33.4 % (36.0-46.0); HGB 10.7 g/dL (11.2-15.7); Immature Grans % 0.8; Lymphocytes % 21.4; MCV 109 fL (80-95); MPV 9.2 fL (8.0-11.0); Monocytes % 8.6; Neutrophils % 62.9; Platelet Count 253 10^3/uL (130-400); RBC 3.06 10^6/uL (3.93-5.22); RDW 11.4 % (11.7-14.6); RDW-SD 45.6 fL; WBC 6.53 10^3/uL (4.4-10.8)
[2024-02-22 07:52] VITALS: BP 163/70; PULSE 69; RESP 18; TEMP 37.3; O2SAT 93
--- NOTE | 2024-02-22 08:00 | DI.RAD_ITS ---
Exam(s) XR ANKLE RT 2V EXAM: XR ANKLE RT 2V CLINICAL HISTORY: Ankle pain. TECHNIQUE: 2D digital imaging was performed of the right ankle. Two images were obtained. AP and l ateral views were obtained. COMPARISON: No exams were available for comparison FINDINGS: BONES: No acute fracture is present. No bony destructive lesion is seen. There is a small plantar ca lcaneal spur. There is a small enthesophyte at the posterior calcaneus. The bones are osteopenic. JOINTS: The ankle mortise is normally aligned. SOFT TISSUE: Normal. IMPRESSION: No acute fracture or dislocation. DATA REPOSITORY: RADIATION DOSE DELIVERED:
[2024-02-22 08:01] LABS: ALT 42 U/L (14-59); AST 32 U/L (15-37); Albumin 2.9 g/dL (3.4-5.0); Alkaline Phosphatase 69 U/L (46-116); Anion Gap 11.2 mmol/L (3-11); BUN 23 mg/dL (7-18); Bilirubin, Total 0.8 mg/dL (0.2-1.0); CO2 24.8 mmol/L (21.0-32.0); Calcium 9.1 mg/dL (8.5-10.1); Chloride 106 mmol/L (98-107); Estimated GFR 56.25 (mL/min/1.73m2); Glucose 97 mg/dL (74-106); Potassium 3.9 mmol/L (3.5-5.1); Sodium 142 mmol/L (136-145); Total Protein 6.7 g/dL (6.4-8.2)
[2024-02-22] MEDS: Normal Saline Flush 10 ML SYR IVP ×2 (08:52→21:00)
[2024-02-22] MEDS: Enoxaparin 40 MG/0.4 ML SYR SC (08:53)
[2024-02-22] MEDS: Meloxicam 15 MG TAB 7.5 MG PO (08:53)
[2024-02-22] MEDS: guaiFENesin 600 MG TABCR PO ×2 (08:53→21:07)
[2024-02-22] MEDS: Escitalopram 20 MG TAB PO (08:53)
[2024-02-22] MEDS: Cholecalciferol (Vitamin D3) 1,000 UNIT TAB 5000 UNITS PO (08:53)
[2024-02-22] MEDS: amLODIPine 5 MG TAB PO (08:53)
[2024-02-22] MEDS: Vitamin E 400 UNITS CAP PO (08:53)
[2024-02-22] MEDS: Vitamins B Comp w/C TAB 1 TAB PO (08:53)
[2024-02-22] MEDS: Multivitamin TAB 1 TAB PO (08:53)
[2024-02-22] MEDS: Oseltamivir 30 MG CAP PO (08:53)
[2024-02-22 15:07] VITALS: BP 123/71; PULSE 81; RESP 18; TEMP 36.6; O2SAT 93
--- NOTE | 2024-02-22 16:21 | W.PM.PROGNOT ---
Date of Service Date of service: 02/22/24 Time of Service: 16:21 Assessment and Plan Assessment and plan (1) UTI (urinary tract infection): Start date: 02/16/24 Status: Acute Assessment and plan: blood culture no growth to date urine culture + for E. coli (pansensitive). Status post 6 days of treatment with Rocephin which ended yesterday. Qualifiers: Urinary tract infection type: acute cystitis Hematuria presence: with hematuria Qualified Code(s): N30.01 - Acute cystitis with hematuria (2) Influenza A: Start date: 02/16/24 Status: Acute Assessment and plan: Patient completed Tamiflu treatment this morning (3) Fall: Start date: 02/16/24 Status: Acute Assessment and plan: Patient continues to work with physical therapy plan is for her to go to the [facility] in [place] tomorrow morning for further rehabilitation and then eventually to return to her home where she lives with her son. Qualifiers: Encounter type: initial encounter Qualified Code(s): W19.XXXA - Unspecified fall, initial encounter (4) Acute right hip pain: Start date: 02/16/24 Status: Acute Assessment and plan: negative CT hip for any fracture. she has been able to ambulate on this leg (5) Cognitive decline: Status: Chronic Assessment and plan: fracisco seems to be at her baseline now that she has been rehydrated. (6) DVT prophylaxis: Status: Acute Assessment and plan: currently on enoxaparin (7) Discharge planning issues: Status: Acute Assessment and plan: Patient will be discharged to the [facility] tomorrow for further rehabilitation and then eventually she will return to her home where she lives with her son in [place] Subjective Subjective Interval history since last seen: Audrey is feeling a little more tired today. Poor appetite. Denies any acute pain. Denies any dyspnea. Exam Narrative Exam Narrative: Judi is alert oriented to person and place pleasantly demented Lungs are clear Heart is regular rate and rhythm Abdomen soft nontender nondistended normal bowel sounds Extremities without peripheral cyanosis or edema. Objective Last Vital Signs Temp 36.6 C 02/22/24 15:07 Pulse 81 02/22/24 15:07 Resp 18 02/22/24 15:07 BP 123/71 02/22/24 15:07 Pulse Ox 93 02/22/24 15:07 Laboratory Results - last 24 hr 02/22/24 06:53 WBC 6.53 RBC 3.06 L Hgb 10.7 L Hct 33.4 L MCV 109 H MCH 35.0 H MCHC 32.0 RDW 11.4 L Plt Count 253 MPV 9.2 Immature Gran % 0.8 Neutrophils % 62.9 Lymphocytes % 21.4 Monocytes % 8.6 Eosinophils % 5.8 Basophils % 0.5 Nucleated RBC % 0.0 Absolute Neutrophils 4.11 Absolute Lymphocytes 1.40 Absolute Monocytes 0.56 Absolute Eosinophils 0.38 Absolute Basophils 0.03 Sodium 142 Potassium 3.9 Chloride 106 Carbon Dioxide 24.8 Anion Gap 11.2 H BUN 23 H Creatinine 1.0 Est GFR (CKD-EPI 2020) 56.25 Glucose 97 Calcium 9.1 Total Bilirubin 0.8 AST 32 ALT 42 Alkaline Phosphatase 69 Total Protein 6.7 Albumin 2.9 L Reviewed Pertinent PMH: Yes Objective Narrative Objective Narrative: I reviewed her right ankle x-ray with her and it was negative for any fracture or dislocation Time Spent with Patient Time Spent with Patient: <25 minutes Time was spent: preparing to see the patient(eg.review tests), indepentently interpreting results, counseling the patient and care coordination
--- NOTE | 2024-02-22 16:28 | DI.VRAD_ITS ---
PROCEDURE INFORMATION: Exam: XR Right Ankle Exam date and time: 02/22/2024 3:29 PM Age: 83 years old Clinical indication: Injury or trauma; Fall; Sprain or strain; Ankle; Right TECHNIQUE: Imaging protocol: Radiologic exam of the right ankle. Views: 1 or 2 views. COMPARISON: CR RIGHT KNEE 3 VIEWS 02/05/2018 9:00 AM FINDINGS: Bones/joints: The bones appear osteopenic. Osseous alignment is normal. No acute fracture. Mild plantar and posterior spurring of the calcaneus. No significant arthritic change. Soft tissues: Mild diffuse soft tissue swelling about the ankle. IMPRESSION: No acute fracture Dictated and Authenticated by: Yves Varner MD. Ordering:[facility] Kayli Rodríguez MD
[2024-02-22] MEDS: Acetaminophen 325 MG TAB PO (20:53)
[2024-02-22] MEDS: Losartan 50 MG TAB 100 MG PO (21:07)
[2024-02-22] MEDS: Aspirin E.C. 81 MG TABEC PO (21:07)
[2024-02-22] MEDS: Pravastatin 40 MG TAB 80 MG PO (21:07)
[2024-02-23 00:34] VITALS: BP 141/81; PULSE 76; RESP 18; TEMP 36.3; O2SAT 94
[2024-02-23 07:54] VITALS: BP 139/72; PULSE 65; RESP 18; TEMP 36.7; O2SAT 92
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
[2024-02-23] MEDS: Escitalopram 20 MG TAB PO (09:15)
[2024-02-23] MEDS: amLODIPine 5 MG TAB PO (09:15)
[2024-02-23] MEDS: Cholecalciferol (Vitamin D3) 1,000 UNIT TAB 5000 UNITS PO (09:15)
[2024-02-23] MEDS: Enoxaparin 40 MG/0.4 ML SYR SC (09:15)
[2024-02-23] MEDS: Multivitamin TAB 1 TAB PO (09:16)
[2024-02-23] MEDS: guaiFENesin 600 MG TABCR PO (09:16)
[2024-02-23] MEDS: Normal Saline Flush 10 ML SYR IVP (09:16)
[2024-02-23] MEDS: Meloxicam 15 MG TAB 7.5 MG PO (09:16)
[2024-02-23] MEDS: Vitamins B Comp w/C TAB 1 TAB PO (09:17)
[2024-02-23] MEDS: Vitamin E 400 UNITS CAP PO (09:17)
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
--- NOTE | 2024-02-23 10:28 | PDOC.CMDIS ---
Date of service: 02/23/24 LACE Index Scoring Tool Questions: Length of Stay (in days): 7 - 13 Was the patient admitted via the E.D.?: Yes E.D. Visits: 0 Answers: Total Score: 8 Risk of Readmission: Low Risk Care Management Discharge Plan Reason for Hospitalization: UTI, confusion, dehydration, fall Discharge Plan: Judi is discharged to the [facility] and will transport via RCT wheelchair van. Patient/Family Education Needs: Review discharge instructions, limitations, medications and plan to follow up with community providers. Discuss ask me three. SDOH Health Related Social Needs: No Data to Display
--- NOTE | 2024-02-23 10:31 | PDOC.CMPRO ---
Date of service: 02/23/24 Care Management Progress Note Progress Note Text Progress Note Text: S/O: Judi was lying in bed while talking with CM. Judi wondered if the plan was still for her to go to the [facility]. CM let her know per MD that this is still the plan. Judi reports it has been a busy morning for her already with haven been given a lot of medications and them not settling well in her stomach. Judi was holding onto her newly gifted stuffed nielsen and rabbit that she reports her daughter in law brought her yesterday. She smiled as she discussed her son is a black top roller at a local latter day in [place]. Judi shared she liked the MDs last name because she likes cats and has three of her own at home, one she calls TT for tiny terror. Judi reports she is eager to get home but knows going to short term placement is ideal. A: 83 year old female admitted to [facility] 02/16/24 for acute dehydration, fall, UTI, Influenza A P: Anticipate Judi will discharge home with new orders for VNA PT-vs-SNF dependent on progress during hospitalization. Bed offer to the [facility] on 02/23/24 was accepted by pt. She will need RCT wheelchair van. CM continues to follow. ROB. SDOH(Care Management) Screening Will the Patient Participate in the Screening?: Unable to obtain
--- NOTE | 2024-02-23 11:57 | PT.INTREAT ---
PT Notes Visit Reasons: Acute Dehydration, Fall, UTI, Influenza A Date: 02/23/24 PRECAUTIONS: Fall. Standard. Activity as tolerated. Droplet precautions for Influenza A in place. SUBJECTIVE: pt in bed when approached for tjerapy this morning, pt on anti-DVT pump, pt reports that her back is very itchy and would like to reposition to address itchiness. OBJECTIVE: Slumped in bed, wearing anti DVT pump. ? VITALS: monitored by nursing ? Therapeutic Activities [id number]: Direct one-on-one instruction in dynamic activities to improve functional performance. ?? BED MOBILITY/TRANSFERS? Rolling L/R: min A Supine-sit: min A? Sit-supine: ? supervision? Sit-stand: ? mod A? Stand-sit: ??mod A ? Bed-Chair:? not performed? Chair-bed: not performed Provided skilled cues and instruction on performance and technique throughout. ? Therapeutic Exercises [id number]: Direct one-on-one instruction in therapeutic exercises to develop strength, endurance, range of motion and flexibility. Exercises: Sit to stand [id number] Side to side movement on the EOB 5x Upward movement in bed Rolling side to side Supine heel slides [id number] Supine clamshells [id number] Supine SLR [id number]? Provided skilled instruction in proper exercise performance Provided skilled manual cues to facilitate proper muscle recruitment and/or form: ASSESSMENT: Pt reports fatigue with sit to stand activity, pt felt releif sitting on the EOB for 15mins while doing exercises, pt repositioned in bed for proper body alignment, set for anti-DVT pump post session. PLAN: Continue with balance training, global strengthening and general conditioning for improved safety, mobility and activity tolerance until pt is ready for DC. TREATMENT CODE/TIME: [id number], [id number] 25mins (11:30-11:55pm)
== END 2024-02-23 12:23 | disposition skilled nursing facility (03) | DRG 872 ==
LOC: ER 22:06 → MS 23:17
PROVIDERS: Internal Medicine; Admitting Provider Family Medicine; Emergency Provider Physician Assistant; PCP Family Medicine; Visit Provider Family Medicine
DX: A41.9 Sepsis, unspecified organism (principal); N30.01 Acute cystitis with hematuria; R65.20 Severe sepsis without septic shock; J10.1 Influenza due to other identified influenza virus with other respiratory manifestations; E86.0 Dehydration; W19.XXXA Unspecified fall, initial encounter; M25.551 Pain in right hip; R29.6 Repeated falls; S09.8XXA Other specified injuries of head, initial encounter; F03.A0 Unspecified dementia, mild, without behavioral disturbance, psychotic disturbance, mood disturbance, and anxiety; I10 Essential (primary) hypertension; D64.9 Anemia, unspecified; Z96.611 Presence of right artificial shoulder joint; M54.6 Pain in thoracic spine; N28.9 Disorder of kidney and ureter, unspecified; G89.29 Other chronic pain; M54.2 Cervicalgia; Z86.73 Personal history of transient ischemic attack (TIA), and cerebral infarction without residual deficits; E78.5 Hyperlipidemia, unspecified; K57.30 Diverticulosis of large intestine without perforation or abscess without bleeding; Z96.653 Presence of artificial knee joint, bilateral; D50.9 Iron deficiency anemia, unspecified; B96.20 Unspecified Escherichia coli [E. coli] as the cause of diseases classified elsewhere
CPT/HCPCS: 00123; 36415; 73552; 80048; 80053; 83690; 85027; 87040; 87077; 87637; 96361; 96365; 96367; 97110; 97162; 97166; 97530; 97535; 99285; J1650; 70450; 71046; 72192; 73600; 81003; 81015; 82607; 82728; 82746; 83540; 83550; 83605; 83735; 84165; 85025; 87086; 87186; 94640; 94667; 94668; 94760; 99223; 99231; 99232; 99238; J0131; J0696; J7620

== ENCOUNTER 2024-03-02 18:03 | Outpatient (REF) | payer SELFPAY ==
[2024-03-02 19:38] LABS: Abs Immature Grans 0.05 10^3/uL (0.0-0.06); Absolute Basophil Count 0.06 10^3/uL (0.0-0.2); Absolute Eosinophil Count 0.35 10^3/uL (0.0-0.7); Absolute Lymphocyte Count 1.09 10^3/uL (1.2-3.4); Absolute Monocyte Count 0.79 10^3/uL (0.1-0.8); Absolute Neutrophil Count 8.32 10^3/uL (1.2-6.7); Basophils % 0.6; Eosinophils % 3.3; HCT 36.8 % (36.0-46.0); HGB 11.8 g/dL (11.2-15.7); Immature Grans % 0.5; Lymphocytes % 10.2; MCH 35.3 pg (27.0-33.0); MCHC 32.1 % (32.0-36.0); MCV 110 fL (80-95); MPV 9.6 fL (8.0-11.0); Monocytes % 7.4; Platelet Count 399 10^3/uL (130-400); RBC 3.34 10^6/uL (3.93-5.22); RDW 11.8 % (11.7-14.6); RDW-SD 47.8 fL; WBC 10.66 10^3/uL (4.4-10.8)
[2024-03-02 19:51] LABS: Iron 57 ug/dL (50-170); Total Iron Binding Capacity 297 ug/dL (250-450); Transferrin Sat 19 % (15-50)
[2024-03-02 20:00] LABS: Hemoglobin A1C 5.7 % (<5.7)
[2024-03-02 20:01] LABS: ALT 38 U/L (14-59); AST 20 U/L (15-37); Albumin 3.6 g/dL (3.4-5.0); Alkaline Phosphatase 103 U/L (46-116); BUN 36 mg/dL (7-18); Bilirubin, Total 1.2 mg/dL (0.2-1.0); CREATININE 1.1 mg/dL (0.55-1.02); Calcium 9.4 mg/dL (8.5-10.1); Chloride 103 mmol/L (98-107); Estimated GFR 50.17 (mL/min/1.73m2); Glucose 124 mg/dL (74-106); Magnesium 2.5 mg/dL (1.8-2.4); Potassium 4.7 mmol/L (3.5-5.1); Sodium 141 mmol/L (136-145); TSH (W/Ref FT4) 1.03 uIU/mL (0.36-3.74)
[2024-03-02 20:12] LABS: Vitamin D 25 Total 40.4 ng/mL (30-100)
[2024-03-02 20:15] LABS: Diff Comment RBC Morph Reviewed; Macrocytosis 1+
[2024-03-02 20:40] LABS: Ferritin 135 ng/mL (8-252); Vitamin B12 1147 pg/mL (193-986)
[2024-03-02 20:41] LABS: Folate > 20.0 ng/mL (8.6-20.0)
== END 2024-03-02 18:04 | disposition home or self-care (01) ==
LOC: LBN 18:03
PROVIDERS: PCP Family Medicine; Visit Provider Nurse Practitioner Gerontology
DX: D13.6 Benign neoplasm of pancreas (principal); N28.1 Cyst of kidney, acquired; E78.5 Hyperlipidemia, unspecified; E55.9 Vitamin D deficiency, unspecified
CPT/HCPCS: 80053; 82306; 82607; 82728; 82746; 83036; 83540; 83550; 83735; 84443; 85025

== ENCOUNTER 2024-05-17 18:25 | Outpatient (REF) | payer MEDICARE, SELFPAY ==
[2024-05-17 19:20] LABS: ALT 26 U/L (14-59); AST 14 U/L (15-37); Albumin 3.4 g/dL (3.4-5.0); Alkaline Phosphatase 86 U/L (46-116); Anion Gap 7.2 mmol/L (3-11); BUN 37 mg/dL (7-18); Bilirubin, Total 0.86 mg/dL (0.2-1.0); CO2 30.8 mmol/L (21.0-32.0); CREATININE 0.9 mg/dL (0.55-1.02); Calcium 9.5 mg/dL (8.5-10.1); Chloride 104 mmol/L (98-107); Estimated GFR 63.83 (mL/min/1.73m2); Glucose 123 mg/dL (74-106); Potassium 4.5 mmol/L (3.5-5.1); Sodium 142 mmol/L (136-145); Total Protein 6.9 g/dL (6.4-8.2)
== END 2024-05-17 18:26 | disposition home or self-care (01) ==
LOC: LBN 18:25
PROVIDERS: PCP Family Medicine; Visit Provider Nurse Practitioner Gerontology
DX: I10 Essential (primary) hypertension (principal); E78.5 Hyperlipidemia, unspecified; D64.9 Anemia, unspecified; G89.4 Chronic pain syndrome
CPT/HCPCS: 80053

== ENCOUNTER 2024-06-21 18:21 | Outpatient (REF) | payer MEDICARE, MEDICAID, SELFPAY ==
[2024-06-21 18:38] LABS: Bilirubin Negative (Negative); Blood Large (Negative); Clarity Clear (Clear); Glucose Negative (Negative); Ketones Negative (Negative); Leukocyte Esterase Small (Negative); Nitrite Negative (Negative); Urobilinogen 0.2 mg/dL (Up to 0.2)
[2024-06-21 18:52] LABS: Bacteria Rare HPF (Negative); C & S Indicated? C&S Done As Ordered; Casts Negative LPF (Negative); Crystals Negative HPF (Negative); Epithelial Cells Few HPF (Negative); Mucus Trace (Negative); RBC 20-50 HPF (0-2); WBC 20-50 HPF (0-5)
== END 2024-06-21 18:22 | disposition home or self-care (01) ==
LOC: LBN 18:21
PROVIDERS: PCP Family Medicine; Visit Provider Nurse Practitioner Gerontology
DX: R31.9 Hematuria, unspecified (principal); N39.0 Urinary tract infection, site not specified
CPT/HCPCS: 81003; 81015; 87086

== ENCOUNTER 2024-07-19 21:57 | Outpatient (REF) | payer MEDICARE, MEDICAID, SELFPAY ==
[2024-07-19 22:07] LABS: ALT 13 U/L (14-59); AST 12 U/L (15-37); Alkaline Phosphatase 71 U/L (46-116); Anion Gap 6.6 mmol/L (3-11); BUN 37 mg/dL (7-18); Bilirubin, Total 0.66 mg/dL (0.2-1.0); CO2 27.4 mmol/L (21.0-32.0); CREATININE 1.1 mg/dL (0.55-1.02); Calcium 9.4 mg/dL (8.5-10.1); Chloride 106 mmol/L (98-107); Estimated GFR 50.17 (mL/min/1.73m2); Glucose 126 mg/dL (74-106); Potassium 4.4 mmol/L (3.5-5.1); Sodium 140 mmol/L (136-145); Total Protein 6.2 g/dL (6.4-8.2)
== END 2024-07-19 21:58 | disposition home or self-care (01) ==
LOC: LBN 21:57
PROVIDERS: PCP Family Medicine; Visit Provider Nurse Practitioner Gerontology
DX: Z13.228 Encounter for screening for other metabolic disorders (principal)
CPT/HCPCS: 80053

== ENCOUNTER 2024-07-30 18:05 | Outpatient (REF) | payer MEDICARE, MEDICAID, SELFPAY ==
[2024-07-30 18:10] LABS: Abs Immature Grans 0.05 10^3/uL (0.0-0.06); Absolute Basophil Count 0.04 10^3/uL (0.0-0.2); Absolute Eosinophil Count 0.33 10^3/uL (0.0-0.7); Absolute Lymphocyte Count 1.27 10^3/uL (1.2-3.4); Absolute Neutrophil Count 6.68 10^3/uL (1.2-6.7); Basophils % 0.4 %; Eosinophils % 3.6 %; HCT 33.1 % (36.0-46.0); HGB 10.8 g/dL (11.2-15.7); Immature Grans % 0.5 %; Lymphocytes % 13.7 %; MCH 34.6 pg (27.0-33.0); MCHC 32.6 % (32.0-36.0); MCV 106 fL (80-95); MPV 8.8 fL (8.0-11.0); Monocytes % 9.7 %; Neutrophils % 72.1 %; Platelet Count 344 10^3/uL (130-400); RBC 3.12 10^6/uL (3.93-5.22); RDW 11.9 % (11.7-14.6); RDW-SD 46.5 fL; WBC 9.27 10^3/uL (4.4-10.8)
[2024-07-30 18:26] LABS: ALT 13 U/L (14-59); AST 12 U/L (15-37); Albumin 3.2 g/dL (3.4-5.0); Alkaline Phosphatase 79 U/L (46-116); Anion Gap 6.2 mmol/L (3-11); BUN 14 mg/dL (7-18); CO2 28.8 mmol/L (21.0-32.0); CREATININE 1.1 mg/dL (0.55-1.02); Calcium 9.6 mg/dL (8.5-10.1); Chloride 103 mmol/L (98-107); Estimated GFR 50.17 (mL/min/1.73m2); Glucose 121 mg/dL (74-106); Potassium 3.5 mmol/L (3.5-5.1); Sodium 138 mmol/L (136-145); Total Protein 6.5 g/dL (6.4-8.2)
== END 2024-07-30 18:06 | disposition home or self-care (01) ==
LOC: LBN 18:05
PROVIDERS: PCP Family Medicine; Visit Provider Nurse Practitioner Gerontology
DX: R19.7 Diarrhea, unspecified (principal)
CPT/HCPCS: 80053; 83735; 85025

== ENCOUNTER 2024-08-09 19:20 | Outpatient (REF) | payer MEDICARE, MEDICAID, SELFPAY ==
[2024-08-09 19:43] LABS: Abs Immature Grans 0.03 10^3/uL (0.0-0.06); Absolute Basophil Count 0.04 10^3/uL (0.0-0.2); Absolute Eosinophil Count 0.34 10^3/uL (0.0-0.7); Absolute Lymphocyte Count 1.51 10^3/uL (1.2-3.4); Absolute Neutrophil Count 6.18 10^3/uL (1.2-6.7); Basophils % 0.4 %; Eosinophils % 3.7 %; HCT 34.5 % (36.0-46.0); HGB 11.2 g/dL (11.2-15.7); Immature Grans % 0.3 %; Lymphocytes % 16.6 %; MCH 34.4 pg (27.0-33.0); MCHC 32.5 % (32.0-36.0); MCV 106 fL (80-95); MPV 8.9 fL (8.0-11.0); Platelet Count 333 10^3/uL (130-400); RBC 3.26 10^6/uL (3.93-5.22); RDW 11.9 % (11.7-14.6); RDW-SD 46.4 fL
[2024-08-09 20:12] LABS: ALT 19 U/L (14-59); AST 14 U/L (15-37); Albumin 3.1 g/dL (3.4-5.0); Alkaline Phosphatase 71 U/L (46-116); Anion Gap 6.4 mmol/L (3-11); BUN 18 mg/dL (7-18); Bilirubin, Total 0.67 mg/dL (0.2-1.0); CO2 29.6 mmol/L (21.0-32.0); Calcium 9.9 mg/dL (8.5-10.1); Chloride 105 mmol/L (98-107); Estimated GFR 56.25 (mL/min/1.73m2); Glucose 120 mg/dL (74-106); Potassium 3.1 mmol/L (3.5-5.1); Sodium 141 mmol/L (136-145); Total Protein 6.2 g/dL (6.4-8.2)
[2024-08-09 20:18] LABS: C Diff PCR Negative (Negative)
== END 2024-08-09 19:21 | disposition home or self-care (01) ==
LOC: LBN 19:20
PROVIDERS: PCP Family Medicine; Visit Provider Nurse Practitioner Gerontology
DX: R19.7 Diarrhea, unspecified (principal)
CPT/HCPCS: 80053; 87493; 85025; 87177

== ENCOUNTER 2024-08-16 18:46 | Outpatient (REF) | payer MEDICARE, MEDICAID, SELFPAY ==
[2024-08-16 19:58] LABS: Abs Immature Grans 0.04 10^3/uL (0.0-0.06); Absolute Basophil Count 0.05 10^3/uL (0.0-0.2); Absolute Eosinophil Count 0.33 10^3/uL (0.0-0.7); Absolute Lymphocyte Count 1.56 10^3/uL (1.2-3.4); Absolute Monocyte Count 0.76 10^3/uL (0.1-0.8); Absolute Neutrophil Count 6.35 10^3/uL (1.2-6.7); Basophils % 0.6 %; Eosinophils % 3.6 %; HCT 33.9 % (36.0-46.0); HGB 10.9 g/dL (11.2-15.7); Immature Grans % 0.4 %; Lymphocytes % 17.2 %; MCH 34.2 pg (27.0-33.0); MCHC 32.2 % (32.0-36.0); MCV 106 fL (80-95); Monocytes % 8.4 %; Neutrophils % 69.8 %; Platelet Count 299 10^3/uL (130-400); RBC 3.19 10^6/uL (3.93-5.22); WBC 9.09 10^3/uL (4.4-10.8)
[2024-08-16 20:17] LABS: ALT 16 U/L (14-59); AST 16 U/L (15-37); Alkaline Phosphatase 67 U/L (46-116); BUN 12 mg/dL (7-18); Bilirubin, Total 0.69 mg/dL (0.2-1.0); CREATININE 0.9 mg/dL (0.55-1.02); Calcium 9.2 mg/dL (8.5-10.1); Chloride 108 mmol/L (98-107); Estimated GFR 63.83 (mL/min/1.73m2); Glucose 105 mg/dL (74-106); Potassium 3.9 mmol/L (3.5-5.1); Sodium 142 mmol/L (136-145)
[2024-08-16 20:21] LABS: Macrocytosis 2+
== END 2024-08-16 18:47 | disposition home or self-care (01) ==
LOC: LBN 18:46
PROVIDERS: PCP Family Medicine; Visit Provider Nurse Practitioner Gerontology
DX: E87.6 Hypokalemia (principal); D51.9 Vitamin B12 deficiency anemia, unspecified
CPT/HCPCS: 80053; 85025

== ENCOUNTER 2024-09-15 19:49 | Outpatient (REF) | payer MEDICARE, MEDICAID, SELFPAY ==
[2024-09-15 18:46] LABS: Abs Immature Grans 0.05 10^3/uL (0.0-0.06); Absolute Basophil Count 0.03 10^3/uL (0.0-0.2); Absolute Eosinophil Count 0.18 10^3/uL (0.0-0.7); Absolute Lymphocyte Count 1.26 10^3/uL (1.2-3.4); Absolute Monocyte Count 0.85 10^3/uL (0.1-0.8); Absolute Neutrophil Count 5.55 10^3/uL (1.2-6.7); Basophils % 0.4 %; Eosinophils % 2.3 %; HCT 35.8 % (36.0-46.0); HGB 11.9 g/dL (11.2-15.7); Immature Grans % 0.6 %; Lymphocytes % 15.9 %; MCH 34.9 pg (27.0-33.0); MCHC 33.2 % (32.0-36.0); MCV 105 fL (80-95); MPV 9.1 fL (8.0-11.0); Monocytes % 10.7 %; Neutrophils % 70.1 %; Platelet Count 352 10^3/uL (130-400); RBC 3.41 10^6/uL (3.93-5.22); RDW 12.3 % (11.7-14.6); RDW-SD 47.8 fL; WBC 7.92 10^3/uL (4.4-10.8)
[2024-09-15 18:56] LABS: ALT 17 U/L (14-59); AST 13 U/L (15-37); Albumin 2.9 g/dL (3.4-5.0); Alkaline Phosphatase 76 U/L (46-116); Anion Gap 8.9 mmol/L (3-11); BUN 19 mg/dL (7-18); Bilirubin, Total 0.91 mg/dL (0.2-1.0); CO2 23.1 mmol/L (21.0-32.0); CREATININE 1.1 mg/dL (0.55-1.02); Calcium 10.1 mg/dL (8.5-10.1); Chloride 110 mmol/L (98-107); Estimated GFR 50.17 (mL/min/1.73m2); Glucose 142 mg/dL (74-106); Sodium 142 mmol/L (136-145); Total Protein 6.1 g/dL (6.4-8.2)
== END 2024-09-15 19:50 | disposition home or self-care (01) ==
LOC: LBN 19:49
PROVIDERS: PCP Family Medicine; Visit Provider Nurse Practitioner Gerontology
DX: R19.7 Diarrhea, unspecified (principal)
CPT/HCPCS: 80053; 85025

== ENCOUNTER 2024-09-17 19:04 | Outpatient (REF) | payer MEDICARE, MEDICAID, SELFPAY ==
[2024-09-17 18:00] LABS: Bilirubin Negative (Negative); Blood Trace-intact (Negative); Clarity Clear (Clear); Glucose Negative (Negative); Ketones Negative (Negative); Leukocyte Esterase Negative (Negative); Nitrite Negative (Negative); Urobilinogen 0.2 mg/dL (Up to 0.2)
[2024-09-17 18:19] LABS: Bacteria Few HPF (Negative); C & S Indicated? C&S Done As Ordered; Casts Negative LPF (Negative); Crystals Negative HPF (Negative); Epithelial Cells Rare HPF (Negative); Mucus Negative (Negative); WBC 20-50 HPF (0-5)
== END 2024-09-17 19:05 | disposition home or self-care (01) ==
LOC: LBN 19:04
PROVIDERS: PCP Family Medicine; Visit Provider Nurse Practitioner Gerontology
DX: N39.0 Urinary tract infection, site not specified (principal)
CPT/HCPCS: 81003; 81015; 87086

== ENCOUNTER 2024-09-20 21:43 | Outpatient (REF) | payer MEDICARE, MEDICAID, SELFPAY ==
[2024-09-20 19:59] LABS: ALT 15 U/L (14-59); AST 18 U/L (15-37); Albumin 2.9 g/dL (3.4-5.0); Alkaline Phosphatase 81 U/L (46-116); Anion Gap 12.3 mmol/L (3-11); BUN 22 mg/dL (7-18); Bilirubin, Total 1.02 mg/dL (0.2-1.0); CO2 22.7 mmol/L (21.0-32.0); Calcium 10.7 mg/dL (8.5-10.1); Chloride 109 mmol/L (98-107); Estimated GFR 56.25 (mL/min/1.73m2); Glucose 103 mg/dL (74-106); Sodium 144 mmol/L (136-145); Total Protein 6.2 g/dL (6.4-8.2)
== END 2024-09-20 21:44 | disposition home or self-care (01) ==
LOC: LBN 21:43
PROVIDERS: PCP Family Medicine; Visit Provider Nurse Practitioner Gerontology
DX: R19.7 Diarrhea, unspecified (principal); E87.6 Hypokalemia
CPT/HCPCS: 80053

== ENCOUNTER 2024-09-22 17:41 | Inpatient (IN) | payer MEDICARE, MEDICAID, SELFPAY ==
[2024-09-22] VITALS (36 sets, daily range): BP systolic 114–173; BP diastolic 45–103; PULSE 46–150; RESP 13–25; TEMP 36.5–36.8; O2SAT 94–96
--- NOTE | 2024-09-22 17:45 | RT.EKG_ITS ---
APPROVED REPORT Exam: Resting ECG Reason for Exam: Altered Patient Location: E HR:100 bpm ECG Measurements Heart Rate 100 AXIS MO 158 P 34 QRSd 90 QRS 9 QT 358 T 196 QTc 462 Conclusion Sinus tachycardia...rate> 99 Atrial premature complexes...SV complexes w/ short R-R intvls Repol abnrm suggests ischemia, diffuse leads...ST-T neg, ant/lat/inf Atrial fibrillation at a rate of 100. Normal axis.MO and QTc within normal limits. Compared to rajendrao r dated 3 years ago atrial fibrillation has replaced normal sinus rhythm. No acute injury pattern. No ST segment abnormalities. No T wave versions.
--- NOTE | 2024-09-22 17:45 | DI.CT_ITS ---
Exam(s) CT HEAD WO EXAM: CT HEAD WO CLINICAL HISTORY: Altered. TECHNIQUE: Imaging Protocol: Axial computed tomography images with coronal and sagittal reformatted images were created and reviewed COMPARISON: CT CT HEAD WO from 09/05/[address] HEAD WO from 02/16/2024 FINDINGS: There are no skull fractures. There is no fluid in the visualized paranasal sinuses. There is no evidence of intracranial hemorrhage, mass effect, or shift of midline structures. There are no extra-axial fluid collections. The ventricles are not enlarged or shifted and there is no blo od within the ventricular system nor within the basal cisterns. Again noted is some bilateral periventricular hypodensity consistent with chronic small vessel diseas e. Also again noted is a lacunar infarct in the medial left periventricular white matter which is un changed from 02/16/2024 and was evident on 09/05/2022 CT. IMPRESSION: No acute intracranial findings on this noninfused CT scan of the brain. Vessel white matter ischemic changes and stable nonhemorrhagic lacunar infarct in the immediate left side periventricular white matter. Report called by myself to ER physician 09/22/2024 at 6:34 p.m. RADIATION DOSE DELIVERED: 875.93mGy.cm Total DLP DATA REPOSITORY: All CT scans at this facility are submitted to the National Radiology Data Registry (NRDR) Dose Index Registry (DIR) with the [employer] (A[employer]). RADIATION OPTIMIZATION: All CT scans at this facility use at least one of these dose optimization te chniques: automated exposure control; mA and/or kV adjustment per patient size (includes targeted exa ms where dose is matched to clinical indication); or iterative reconstruction.
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
[2024-09-22 18:06] LABS: Bilirubin Negative (Negative); Blood Moderate (Negative); Clarity Cloudy (Clear); Glucose Negative (Negative); Ketones Negative (Negative); Leukocyte Esterase Large (Negative); Nitrite Negative (Negative); Specific Gravity 1.025 (1.005-1.025); Urobilinogen 0.2 mg/dL (Up to 0.2)
[2024-09-22 18:12] LABS: C & S Indicated? Yes; WBC >50 HPF (0-5)
[2024-09-22 18:12] LABS: Abs Immature Grans 0.04 10^3/uL (0.0-0.06); Absolute Basophil Count 0.04 10^3/uL (0.0-0.2); Absolute Eosinophil Count 0.18 10^3/uL (0.0-0.7); Absolute Monocyte Count 1.25 10^3/uL (0.1-0.8); Absolute Neutrophil Count 6.23 10^3/uL (1.2-6.7); Basophils % 0.4 %; Eosinophils % 1.9 %; HCT 36.6 % (36.0-46.0); HGB 12.4 g/dL (11.2-15.7); Immature Grans % 0.4 %; Lymphocytes % 17.1 %; MCH 34.4 pg (27.0-33.0); MCHC 33.9 % (32.0-36.0); MCV 102 fL (80-95); MPV 8.3 fL (8.0-11.0); Monocytes % 13.4 %; Neutrophils % 66.8 %; Platelet Count 345 10^3/uL (130-400); RDW 12.5 % (11.7-14.6); RDW-SD 46.8 fL; WBC 9.34 10^3/uL (4.4-10.8)
[2024-09-22 18:37] LABS: Anion Gap 10.9 mmol/L (3-11); BUN 27 mg/dL (7-18); CO2 23.1 mmol/L (21.0-32.0); CREATININE 1.2 mg/dL (0.55-1.02); Calcium 10.6 mg/dL (8.5-10.1); Chloride 106 mmol/L (98-107); Estimated GFR 45.19 (mL/min/1.73m2); Glucose 105 mg/dL (74-106); Sodium 140 mmol/L (136-145); TSH (W/Ref FT4) 0.77 uIU/mL (0.36-3.74); Troponin I 25 ng/L (<or=51)
[2024-09-22 18:42] LABS: Potassium 2.5 mmol/L (3.5-5.1)
[2024-09-22] MEDS: cefTRIAXone 2 GM/50 ML BAG IVPB (19:06)
[2024-09-22] MEDS: Potassium Chloride 20 MEQ TABCR 40 MEQ PO (19:14)
[2024-09-22] MEDS: Normal Saline 500 ML 250 ML IV (19:28)
[2024-09-22] MEDS: POTASSIUM CHLORIDE 10 MEQ/100 ML BAG 100 MEQ IV_INF ×4 (19:28→23:36)
[2024-09-22] MEDS: Ondansetron 4 MG/2 ML VIAL IVP (19:28)
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
[2024-09-22 20:10] LABS: Troponin I 23 ng/L (<or=51)
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
[2024-09-22] MEDS: DULoxetine 30 MG CAP PO (22:16)
[2024-09-22] MEDS: Melatonin 3 MG TAB 6 MG PO (22:16)
[2024-09-22] MEDS: Acetaminophen 325 MG TAB 650 MG PO (22:17)
[2024-09-22] MEDS: POTASSIUM CHLORIDE/0.9% NACL 1,000 ML 100 MEQ IV (22:18)
[2024-09-23 04:51] LABS: C Diff PCR Negative (Negative)
[2024-09-23 07:09] LABS: Anion Gap 11.4 mmol/L (3-11); BUN 25 mg/dL (7-18); CO2 19.6 mmol/L (21.0-32.0); Calcium 10.1 mg/dL (8.5-10.1); Chloride 112 mmol/L (98-107); Estimated GFR 56.25 (mL/min/1.73m2); Glucose 92 mg/dL (74-106); Sodium 143 mmol/L (136-145)
[2024-09-23 07:51] VITALS: PULSE 82; RESP 17; TEMP 36.2; O2SAT 95
[2024-09-23] MEDS: POTASSIUM CHLORIDE/0.9% NACL 1,000 ML 100 MEQ IV ×2 (08:36→21:50)
[2024-09-23] MEDS: Normal Saline Flush 10 ML SYR (08:39)
[2024-09-23 08:50] VITALS: BP 115/65
[2024-09-23] MEDS: DULoxetine 30 MG CAP PO ×2 (08:56→21:51)
[2024-09-23] MEDS: amLODIPine 5 MG TAB PO (08:57)
[2024-09-23] MEDS: Losartan 50 MG TAB PO (08:57)
[2024-09-23 14:39] VITALS: BP 106/50; PULSE 85; RESP 18; TEMP 37.2; O2SAT 95
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
[2024-09-23] MEDS: cefTRIAXone 1 GM/50 ML BAG IVPB (17:38)
--- NOTE | 2024-09-23 18:31 | PGE_ITS ---
Date of Service Date of service: 09/23/24 Time of Service: 18:31 Assessment and Plan Assessment and plan (1) UTI (urinary tract infection): Status: Acute Assessment and plan: UA positive for UTI with large amount of leuk esterase, > 50 WBC-in the setting of change mental status. Urine culture now showing gram-negative rods Will continue IV ceftriaxone while waiting for further results (2) Hypokalemia: Status: Acute Assessment and plan: Initial potassium was 2.5 and now 3.0 status post supplementation. Additional supplementation ordered BMP in the morning (3) Decubitus ulcer of sacral region, stage 2: Status: Acute Assessment and plan: Wound consult Turn every 2 hours (4) Dehydration: Status: Acute Assessment and plan: Slight elevation on admission in creatinine of 0.2 above baseline with BUN around 27 with baseline of 12. Now BUN is 25 and creatinine 1.0 This could have been related to diarrhea?tested and C. difficile negative Will continue IV fluid and reevaluate in the morning BMP in the morning Discussed with Dr. Diaz Subjective Subjective Patient reports: no new complaints, feels better, tolerating liquids well, tolerating a regular diet, voiding w/o difficulty and diarrhea; denies nausea, vomiting, shortness of breath or fever Exam Narrative Exam Narrative: Frail elderly female patient without acute cardiorespiratory distress but confused only able to state her name. Upper extremities bilateral equal weakness to lower extremities; nonfocal Clear breath sounds to auscultation bilaterally S1-S2 no murmur, radial and pedal pulses are positive Abdomen is soft nontender nondistended, bowel sounds are present No complaints of back pain No wounds on exposed skin Objective Last Vital Signs Temp 37.2 C 09/23/24 14:39 Pulse 85 09/23/24 14:39 Resp 18 09/23/24 14:39 BP 106/50 L 09/23/24 14:39 Pulse Ox 95 09/23/24 14:39 Laboratory Results - last 24 hr 09/22/24 09/22/24 09/22/24 18:07 19:45 20:51 Sodium 140 Potassium 2.5 L* Chloride 106 Carbon Dioxide 23.1 Anion Gap 10.9 BUN 27 H Creatinine 1.2 H Est GFR (CKD-EPI 2020) 45.19 Glucose 105 Calcium 10.6 H Troponin I 25 23 Cancelled TSH 0.77 Stl C.difficile Tox PCR 09/23/24 09/23/24 09/23/24 03:00 05:47 06:20 Sodium 143 Potassium 3.0 L Chloride 112 H Carbon Dioxide 19.6 L Anion Gap 11.4 H BUN 25 H Creatinine 1.0 Est GFR (CKD-EPI 2020) 56.25 Glucose 92 Calcium 10.1 Troponin I TSH Stl C.difficile Tox PCR Negative Cancelled Time Spent with Patient Time Spent with Patient: >50 minutes Time was spent: preparing to see the patient(eg.review tests), obtaining and/or reviewing separately otained hiistory, ordering medications,tests, procedures, referring, communicating with other health career development coordinator, indepentently interpreting results, counseling the patient and care coordination
[2024-09-23 20:02] VITALS: BP 110/55; PULSE 82; RESP 17; TEMP 36.7; O2SAT 96
[2024-09-23] MEDS: Normal Saline Flush 10 ML SYR IVP (21:50)
[2024-09-23] MEDS: Melatonin 3 MG TAB 6 MG PO (21:51)
[2024-09-24 07:50] VITALS: BP 110/58; PULSE 80; RESP 16; TEMP 37; O2SAT 97
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
[2024-09-24] MEDS: Enoxaparin 40 MG/0.4 ML SYR SC (08:43)
[2024-09-24] MEDS: amLODIPine 5 MG TAB PO (08:45)
[2024-09-24] MEDS: Losartan 50 MG TAB PO (08:46)
[2024-09-24] MEDS: DULoxetine 30 MG CAP PO (08:46)
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
[2024-09-24 11:12] LABS: Anion Gap 8.9 mmol/L (3-11); BUN 13 mg/dL (7-18); CO2 22.1 mmol/L (21.0-32.0); Calcium 9.6 mg/dL (8.5-10.1); Chloride 115 mmol/L (98-107); Estimated GFR 56.25 (mL/min/1.73m2); Glucose 124 mg/dL (74-106); Potassium 3.4 mmol/L (3.5-5.1); Sodium 146 mmol/L (136-145)
--- NOTE | 2024-09-24 11:29 | NUR.NOTE ---
Nursing Note: called report to Adra at the [facility].
[2024-09-24] MEDS: Fosfomycin Tromethamine 3 GM PACKET PO (11:41)
--- NOTE | 2024-09-24 12:54 | NUR.NOTE ---
Reviewed documentation with Hazel Daniel, student BRIAR CUTTER. Ijeoma Diaz, MSN, RNC-OB, clinical instructor
--- NOTE | 2024-09-24 15:57 | CMDISCH_ITS ---
Date of service: 09/24/24 Time of Service: 15:57 LACE Index Scoring Tool Questions: Length of Stay (in days): 2 Was the patient admitted via the E.D.?: Yes Comorbidities: Cerebrovascular Disease E.D. Visits: 0 Answers: Total Score: 6 Risk of Readmission: Low Risk Care Management Discharge Plan Reason for Hospitalization: UTI, confusion, hypokalemia Discharge Plan: Judi returned to the [facility] today, where she resides. She was transported via [employer] w/c van, coordinated by CM. She will follow up with facility providers and her discharge plan of care. Patient/Family Education Needs: Review discharge instructions and limitations, discussion of self care needs including ask me three. Services Needed at Discharge: Penitentiary Facility (the [facility]) and Transportation ([employer] w/c van) SDOH Health Related Social Needs: No Data to Display
== END 2024-09-24 12:22 | disposition skilled nursing facility (03) | DRG 690 ==
LOC: ER 20:14 → MS 21:46
PROVIDERS: Nurse Practitioner Acute Care; Admitting Provider General Practice; Emergency Provider Emergency Medicine; PCP Family Medicine; Visit Provider General Practice
DX: N39.0 Urinary tract infection, site not specified (principal); E87.6 Hypokalemia; E86.0 Dehydration; L89.152 Pressure ulcer of sacral region, stage 2; Z66 Do not resuscitate; F03.90 Unspecified dementia, unspecified severity, without behavioral disturbance, psychotic disturbance, mood disturbance, and anxiety; I10 Essential (primary) hypertension; D64.9 Anemia, unspecified; M43.10 Spondylolisthesis, site unspecified; G47.00 Insomnia, unspecified; G89.29 Other chronic pain; Z86.73 Personal history of transient ischemic attack (TIA), and cerebral infarction without residual deficits; E78.5 Hyperlipidemia, unspecified; K57.30 Diverticulosis of large intestine without perforation or abscess without bleeding; Z96.653 Presence of artificial knee joint, bilateral; I49.1 Atrial premature depolarization; R41.82 Altered mental status, unspecified; B96.20 Unspecified Escherichia coli [E. coli] as the cause of diseases classified elsewhere
CPT/HCPCS: 00123; 36415; 80048; 87077; 87493; 93005; 96361; 96365; 96375; 97163; 99285; J1650; 70450; 81003; 81015; 83735; 84443; 84484; 85025; 87086; 87186; 93010; 99222; 99233; 99239; J0696; J2405; J3480; J3490

== ENCOUNTER 2024-09-27 18:58 | Outpatient (REF) | payer MEDICARE, MEDICAID, SELFPAY ==
[2024-09-27 19:50] LABS: Abs Immature Grans 0.05 10^3/uL (0.0-0.06); Absolute Basophil Count 0.04 10^3/uL (0.0-0.2); Absolute Eosinophil Count 0.35 10^3/uL (0.0-0.7); Absolute Lymphocyte Count 1.03 10^3/uL (1.2-3.4); Absolute Monocyte Count 0.79 10^3/uL (0.1-0.8); Absolute Neutrophil Count 5.94 10^3/uL (1.2-6.7); Basophils % 0.5 %; Eosinophils % 4.3 %; HCT 35.9 % (36.0-46.0); HGB 11.5 g/dL (11.2-15.7); Immature Grans % 0.6 %; Lymphocytes % 12.6 %; MCH 34.2 pg (27.0-33.0); MCV 107 fL (80-95); MPV 8.5 fL (8.0-11.0); Monocytes % 9.6 %; Neutrophils % 72.4 %; Platelet Count 355 10^3/uL (130-400); RBC 3.36 10^6/uL (3.93-5.22); RDW 13.2 % (11.7-14.6)
[2024-09-27 20:12] LABS: ALT 24 U/L (14-59); AST 21 U/L (15-37); Albumin 2.8 g/dL (3.4-5.0); Alkaline Phosphatase 86 U/L (46-116); Anion Gap 12.1 mmol/L (3-11); BUN 6 mg/dL (7-18); Bilirubin, Total 0.52 mg/dL (0.2-1.0); CO2 22.9 mmol/L (21.0-32.0); CREATININE 0.9 mg/dL (0.55-1.02); Calcium 9.8 mg/dL (8.5-10.1); Chloride 112 mmol/L (98-107); Estimated GFR 63.83 (mL/min/1.73m2); Glucose 112 mg/dL (74-106); Potassium 3.3 mmol/L (3.5-5.1); Sodium 147 mmol/L (136-145); Total Protein 6.1 g/dL (6.4-8.2)
== END 2024-09-27 18:59 | disposition home or self-care (01) ==
LOC: LBN 18:58
PROVIDERS: PCP Family Medicine; Visit Provider Nurse Practitioner Gerontology
DX: E87.1 Hypo-osmolality and hyponatremia (principal); N39.0 Urinary tract infection, site not specified
CPT/HCPCS: 80053; 85025

== ENCOUNTER 2024-10-04 18:18 | Outpatient (REF) | payer MEDICARE, MEDICAID, SELFPAY ==
[2024-10-04 18:24] LABS: Abs Immature Grans 0.03 10^3/uL (0.0-0.06); Absolute Basophil Count 0.05 10^3/uL (0.0-0.2); Absolute Lymphocyte Count 1.32 10^3/uL (1.2-3.4); Absolute Monocyte Count 0.87 10^3/uL (0.1-0.8); Absolute Neutrophil Count 7.29 10^3/uL (1.2-6.7); Basophils % 0.5 %; HCT 33.8 % (36.0-46.0); HGB 10.9 g/dL (11.2-15.7); Immature Grans % 0.3 %; Lymphocytes % 13.3 %; MCH 34.8 pg (27.0-33.0); MCHC 32.2 % (32.0-36.0); MCV 108 fL (80-95); MPV 8.8 fL (8.0-11.0); Monocytes % 8.7 %; Neutrophils % 73.2 %; Platelet Count 283 10^3/uL (130-400); RBC 3.13 10^6/uL (3.93-5.22); RDW 13.5 % (11.7-14.6); RDW-SD 54.1 fL; WBC 9.96 10^3/uL (4.4-10.8)
[2024-10-04 18:37] LABS: ALT 17 U/L (14-59); AST 17 U/L (15-37); Albumin 2.4 g/dL (3.4-5.0); Alkaline Phosphatase 92 U/L (46-116); Anion Gap 9.1 mmol/L (3-11); BUN 12 mg/dL (7-18); Bilirubin, Total 1.01 mg/dL (0.2-1.0); CO2 26.9 mmol/L (21.0-32.0); CREATININE 0.9 mg/dL (0.55-1.02); Calcium 9.2 mg/dL (8.5-10.1); Chloride 109 mmol/L (98-107); Estimated GFR 63.43 (mL/min/1.73m2); Glucose 118 mg/dL (74-106); Potassium 3.9 mmol/L (3.5-5.1); Sodium 145 mmol/L (136-145); Total Protein 5.4 g/dL (6.4-8.2)
== END 2024-10-04 18:19 | disposition home or self-care (01) ==
LOC: LBN 18:18
PROVIDERS: PCP Family Medicine; Visit Provider Nurse Practitioner Gerontology
DX: R19.7 Diarrhea, unspecified (principal)
CPT/HCPCS: 80053; 85025

== ENCOUNTER 2025-01-31 20:01 | Outpatient (REF) | payer MEDICARE, MEDICAID, SELFPAY ==
[2025-01-31 19:31] LABS: Bilirubin Negative (Negative); Blood Large (Negative); Clarity Sl Cloudy (Clear); Glucose Negative (Negative); Ketones Negative (Negative); Leukocyte Esterase Negative (Negative); Nitrite Negative (Negative); Urobilinogen 0.2 mg/dL (Up to 0.2)
[2025-01-31 19:50] LABS: Bacteria Few HPF (Negative); C & S Indicated? C&S Done As Ordered; Casts Negative LPF (Negative); Crystals Negative HPF (Negative); Epithelial Cells Moderate HPF (Negative); Mucus Negative (Negative); RBC 20-50 HPF (0-2); WBC 0-2 HPF (0-5)
== END 2025-01-31 20:02 | disposition home or self-care (01) ==
LOC: LBN 20:01
PROVIDERS: PCP Family Medicine; Visit Provider Nurse Practitioner Gerontology
DX: N39.0 Urinary tract infection, site not specified (principal); R82.89 Other abnormal findings on cytological and histological examination of urine
CPT/HCPCS: 81003; 81015; 87086

== ENCOUNTER 2025-02-02 23:39 | Outpatient (REF) | payer MEDICARE, MEDICAID, SELFPAY ==
[2025-02-02 23:19] LABS: Bilirubin Negative (Negative); Blood Negative (Negative); Clarity Clear (Clear); Glucose Negative (Negative); Ketones Negative (Negative); Leukocyte Esterase Negative (Negative); Nitrite Negative (Negative); Urobilinogen 0.2 mg/dL (Up to 0.2)
== END 2025-02-02 23:40 | disposition home or self-care (01) ==
LOC: LBN 23:39
PROVIDERS: PCP Family Medicine; Visit Provider Nurse Practitioner Gerontology
DX: N39.0 Urinary tract infection, site not specified (principal)
CPT/HCPCS: 81003; 87086

== ENCOUNTER 2025-07-11 19:13 | Outpatient (REF) | payer MEDICARE, MEDICAID, SELFPAY ==
[2025-07-11 18:16] LABS: Abs Immature Grans 0.02 10^3/uL (0.0-0.06); HCT 35.9 % (36.0-46.0); HGB 11.7 g/dL (11.2-15.7); Immature Grans % 0.2 %; MCH 35.6 pg (27.0-33.0); MCHC 32.6 % (32.0-36.0); MCV 109 fL (80-95); MPV 8.9 fL (8.0-11.0); Platelet Count 320 10^3/uL (130-400); RBC 3.29 10^6/uL (3.93-5.22); RDW 11.4 % (11.7-14.6); RDW-SD 45.5 fL; WBC 8.53 10^3/uL (4.4-10.8)
[2025-07-11 18:26] LABS: Macrocytosis 2+
[2025-07-11 18:33] LABS: ALT 19 U/L (14-59); AST 14 U/L (15-37); Albumin 3.4 g/dL (3.4-5.0); Alkaline Phosphatase 62 U/L (46-116); Anion Gap 9.6 mmol/L (3-11); BUN 21 mg/dL (7-18); Bilirubin, Total 1.3 mg/dL (0.2-1.0); CO2 27.4 mmol/L (21.0-32.0); Calcium 8.9 mg/dL (8.5-10.1); Chloride 105 mmol/L (98-107); Estimated GFR 63.43 (mL/min/1.73m2); Glucose 146 mg/dL (74-106); Potassium 4.2 mmol/L (3.5-5.1); Sodium 142 mmol/L (136-145); Total Protein 6.5 g/dL (6.4-8.2)
== END 2025-07-11 19:14 | disposition home or self-care (01) ==
LOC: LBN 19:13
PROVIDERS: PCP Family Medicine; Visit Provider Nurse Practitioner Gerontology
DX: D63.1 Anemia in chronic kidney disease (principal); E87.8 Other disorders of electrolyte and fluid balance, not elsewhere classified
CPT/HCPCS: 80053; 85025

== ENCOUNTER 2025-11-13 12:01 | Emergency (ER) | payer MEDICARE, MEDICAID, SELFPAY ==
[2025-11-13] VITALS (25 sets, daily range): BP systolic 166; BP diastolic 99; PULSE 81–99; RESP 14–24; TEMP 37.5; O2SAT 92–96
--- NOTE | 2025-11-13 12:00 | RT.EKG_ITS ---
APPROVED REPORT Exam: Resting ECG Reason for Exam: AMS Patient Location: E HR:90 bpm ECG Measurements Heart Rate 90 AXIS LA 147 P 61 QRSd 85 QRS 14 QT 366 T 129 QTc 431 Conclusion Sinus rhythm...normal P axis, V-rate 60- 99 Atrial premature complexes in couplets...pair SV complexes w/ short R-R No Occlusion DE
--- NOTE | 2025-11-13 12:45 | DI.CT_ITS ---
Exam(s) CT ABDOMEN PELVIS W EXAM: CT ABDOMEN PELVIS W CLINICAL HISTORY: abdominal pain TECHNIQUE: Imaging Protocol: Axial computed tomography images with coronal and sagittal reformatted images were created and reviewed. CONTRAST MATERIAL: Intravenous: Omnipaque 350 Contrast volume:75 mL Oral: No COMPARISON: CT CT THORAX CTA from 06/16/[address] ABDOMEN PELVIS W from 11/01/2021 FINDINGS: ABDOMEN: Lung Bases: There is a small hiatal hernia. Liver: Normal density. No measurable mass. Portal, Superior Mesenteric, and Splenic Veins: Unremarkable. Gallbladder and Biliary Tract: There is a small gallstone. No significant biliary ductal dilatation is present. Pancreas: Normal density, no abnormal calcifications or inflammatory process. Spleen: Normal. Adrenals: No masses seen. Kidneys: Normal size, contour and axis. No radiodense stones or obstructive uropathy. There are left renal cysts. No follow-up is recommended. There is a retroaortic left renal vein. Abdominal Aorta: Abdominal portion non-dilated. Atherosclerotic calcification is seen. 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 Bowel: There is diverticulosis in the colon but no evidence of acute diverticulitis. There is no bowel wall thickening or evidence of obstruction. There are mildly dilated loops of small bowel present which may represent an ileus. Enteritis should also be considered. Appendix is unremarkable. Peritoneal Cavity: No ascites, collection or mesenteric inflammatory response. No free air. Lymph Nodes: Within normal limits. Bones: Within normal limits for the patient's age. The patient has a right total hip arthroplasty. There is grade 1 pseudo spondylolisthesis of L4 on L5. The bones are osteopenic. Soft Tissues: Unremarkable. PELVIS: Bladder: There is mild thickening of the wall of the urinary bladder. Mild stranding is seen around the urinary bladder. Cystitis should be considered. The bladder is incompletely distended. Reproductive Organs: Unremarkable as visualized. Lymph Nodes: Within normal limits. Bones: Within normal limits for the patient's age. IMPRESSION: 1. Mild wall thickening seen in the urinary bladder with stranding the surrounding soft tissues. Cystitis should be considered. Please correlate clinically. 2. There is colonic diverticulosis without evidence of acute diverticulitis. 3. There are mildly dilated loops of fluid-filled small bowel which may be seen with an ileus or enteritis. Please correlate clinically. 4. 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 5. The preliminary [facility] report was reviewed. RADIATION DOSE DELIVERED: 1,308.21mGy.cm Total DLP DATA REPOSITORY: All CT scans at this facility are submitted to the National Radiology Data Registry (NRDR) Dose Index Registry (DIR) with the [employer] (ACR). RADIATION OPTIMIZATION: All CT scans at this facility use at least one of these dose optimization techniques: automated exposure control; mA and/or kV adjustment per patient size (includes targeted exams where dose is matched to clinical indication); or iterative reconstruction.
--- NOTE | 2025-11-13 12:45 | DI.CT_ITS ---
Exam(s) CT HEAD WO EXAM: CT HEAD WO CLINICAL HISTORY: confusion. TECHNIQUE: Imaging Protocol: Axial computed tomography images with coronal and sagittal reformatted images were created and reviewed COMPARISON: CT CT HEAD WO from 09/05/[address] HEAD WO from 02/16/[address] HEAD WO from 09/22/2024 FINDINGS: Ventricles and Extra axial spaces: Normal in size and morphology for the patient's age. Hemorrhage: None. Cerebral parenchyma: There are areas of decreased attenuation in the white matter consistent with chronic microvascular ischemic disease. There is an old lacunar infarct in the left noriega radiata. There is no evidence of an acute territorial infarct or acute mass effect. Midline shift: None. Brainstem/Cerebellum: Normal. Calvarium: Normal. Visualized Paranasal sinuses/Mastoids: Clear. Soft Tissues: Unremarkable. IMPRESSION: 1. No acute intracranial process. 2. The preliminary [facility] report was reviewed. RADIATION DOSE DELIVERED: 915.29mGy.cm Total DLP DATA REPOSITORY: All CT scans at this facility are submitted to the National Radiology Data Registry (NRDR) Dose Index Registry (DIR) with the [employer] (ACR). RADIATION OPTIMIZATION: All CT scans at this facility use at least one of these dose optimization techniques: automated exposure control; mA and/or kV adjustment per patient size (includes targeted exams where dose is matched to clinical indication); or iterative reconstruction.
--- NOTE | 2025-11-13 12:45 | DI.RAD_ITS ---
Exam(s) XR CHEST 2V PA LATERAL EXAM: XR CHEST 2V PA LATERAL CLINICAL HISTORY: weakness TECHNIQUE: 2D digital imaging was performed of the chest. Two images were obtained. AP and lateral views were obtained. COMPARISON: CR,XR XR PORTABLE CHEST AP from 09/05/2022 CR,XR XR CHEST 2V PA LATERAL from 02/16/2024 FINDINGS: MEDIASTINUM: Normal. HEART: Normal. PULMONARY VASCULATURE: There is mild pulmonary venous congestion. LUNGS: There are no focal consolidating infiltrates. PLEURAL SPACE: No pleural effusion or pneumothorax. BONE:Within normal limits for the patient's age. There again seen findings of a right reverse total shoulder arthroplasty. There are marked degenerative changes seen in the left shoulder characterized by glenohumeral joint space narrowing which is [id number] and osteophytes. OTHER FINDINGS:Normal. IMPRESSION: 1. Mild pulmonary venous congestion. 2. There are no focal consolidating infiltrates. 3. The preliminary [facility] report was reviewed. DATA REPOSITORY: RADIATION DOSE DELIVERED:
[2025-11-13 13:02] LABS: Abs Immature Grans 0.03 10^3/uL (0.0-0.06); HCT 39.8 % (36.0-46.0); HGB 13.1 g/dL (11.2-15.7); Immature Grans % 0.4 %; MCH 34.7 pg (27.0-33.0); MCHC 32.9 % (32.0-36.0); MCV 105 fL (80-95); MPV 8.7 fL (8.0-11.0); Platelet Count 312 10^3/uL (130-400); RBC 3.78 10^6/uL (3.93-5.22); RDW 11.1 % (11.7-14.6); RDW-SD 43.3 fL; WBC 7.95 10^3/uL (4.4-10.8)
[2025-11-13 13:17] LABS: Magnesium 2.0 mg/dL (1.6-2.6)
[2025-11-13 13:17] LABS: Glucose Negative (Negative)
[2025-11-13 13:18] LABS: ALT 25 U/L (10-49); AST 30 U/L (<34); Albumin 4.4 g/dL (3.2-5.0); Alkaline Phosphatase 65 U/L (46-116); Anion Gap 8.3 mmol/L (3-11); BUN 15 mg/dL (9-23); Bilirubin, Total 1.2 mg/dL (0.2-1.2); CO2 26.7 mmol/L (20.0-31.0); Calcium 9.2 mg/dL (8.3-10.6); Chloride 103 mmol/L (98-107); Glucose 123 mg/dL (74-106); Potassium 4.2 mmol/L (3.5-5.1); Sodium 138 mmol/L (136-145); Total Protein 7.2 g/dL (5.7-8.2)
[2025-11-13 13:21] LABS: TSH (W/Ref FT4) 1.27 uIU/mL (0.55-4.78)
[2025-11-13 13:32] LABS: C & S Indicated? Yes; WBC >50 HPF (0-5)
[2025-11-13] MEDS: Normal Saline 1,000 ML 500 ML IV (13:35)
[2025-11-13] MEDS: Omnipaque 350 MG/ML 100 ML BTL IJ (13:57)
[2025-11-13] MEDS: Normal Saline - Diluent 50 ML VIAL IJ (14:00)
[2025-11-13] MEDS: Normal Saline Flush 10 ML SYR IVP (14:01)
[2025-11-13] MEDS: cefTRIAXone 1 GM/50 ML BAG IVPB (14:51)
--- NOTE | 2025-11-13 15:10 | DI.[facility]_ITS ---
PROCEDURE INFORMATION: Exam: CT Head Without Contrast Exam date and time: 11/13/2025 1:24 PM Age: 85 years old Clinical indication: Other: Confusion TECHNIQUE: Imaging protocol: Computed tomography of the head without contrast. Radiation optimization: All CT scans at this facility use at least one of these dose optimization techniques: automated exposure control; mA and/or kV adjustment per patient size (includes targeted exams where dose is matched to clinical indication); or iterative reconstruction. COMPARISON: CT HEAD WO 09/22/2024 6:19 PM FINDINGS: Brain: Small vessel ischemic changes in the periventricular white matter. No evidence of an acute cortical infarct. Cerebral ventricles: No ventriculomegaly. Paranasal sinuses: Visualized sinuses are unremarkable. No fluid levels. Mastoid air cells: Visualized mastoid air cells are well aerated. Bones: Unremarkable. No acute fracture. Soft tissues: Unremarkable. IMPRESSION: No acute intracranial abnormality. Changes of an acute infarct may not be visible on CT for up to 24 to 48 hours. Dictated and Authenticated by: Blake Prince MD. Orderin Kerry Carbajal MD
--- NOTE | 2025-11-13 15:19 | DI.[facility]_ITS ---
PROCEDURE INFORMATION: Exam: CT Abdomen And Pelvis With Contrast Exam date and time: 11/13/2025 1:36 PM Age: 85 years old Clinical indication: Other: Abdominal pain; Prior surgery; Surgery date: 6+ months; Surgery type: RT hip TECHNIQUE: Imaging protocol: Computed tomography of the abdomen and pelvis with contrast. Radiation optimization: All CT scans at this facility use at least one of these dose optimization techniques: automated exposure control; mA and/or kV adjustment per patient size (includes targeted exams where dose is matched to clinical indication); or iterative reconstruction. Contrast material: OMNIPAQUE 350; Contrast volume: 75 ml; Contrast route: INTRAVENOUS (IV); COMPARISON: CT PELVIC WO 02/18/2024 4:12 PM FINDINGS: Liver: Normal. No mass. Gallbladder and biliary ducts: Mild dilatation of intrahepatic bile ducts Pancreas: Normal. No ductal dilation. Spleen: Normal. No splenomegaly. Adrenal glands: Normal. No mass. Kidneys and ureters: Benign left renal cyst. No hydronephrosis. Stomach and bowel: Bulky diverticulosis of the colon. No evidence of diverticulitis. Small esophageal hiatal hernia. Appendix: No evidence of appendicitis. Intraperitoneal space: Unremarkable. No free air. No significant fluid collection. Vasculature: Vascular calcifications. No abdominal aortic aneurysm. Very dense atheromatous calcification at the origin of the celiac artery over there is a high-grade stenosis. Dense atheromatous calcification at the origin of the SMA with approximately 50% diameter reduction today Lymph nodes: Unremarkable. No enlarged lymph nodes. Urinary bladder: Irregular thickening the wall the urinary bladder suspicious for cystitis. Reproductive: Unremarkable as visualized. Bones/joints: Right hip arthroplasty causes metallic artifact obscures detail in the pelvis. Low-grade anterolisthesis of L4 on L5. Degenerative arthritis in the lumbar spine and pelvis. Soft tissues: Unremarkable. IMPRESSION: 1. Findings suspicious for urinary cystitis 2. 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 Diverticulosis without evidence of diverticulitis. 4. Mildly dilated intrahepatic bile ducts 4. Other incidental findings as described Dictated and Authenticated by: Denisha Connors MD. Orderin Kerry Carbajal MD
--- NOTE | 2025-11-13 15:21 | DI.[facility]_ITS ---
PROCEDURE INFORMATION: Exam: XR Chest Exam date and time: 11/13/2025 1:51 PM Age: 85 years old Clinical indication: Other: Weakness; Additional info: Abdominal pain TECHNIQUE: Imaging protocol: Radiologic exam of the chest. Views: 2 views. COMPARISON: CR XR CHEST 2V PA LATERAL 02/16/2024 7:18 PM FINDINGS: Lungs: Prominent pulmonary vascularity could be due to vascular congestion. Pleural spaces: Unremarkable. No pleural effusion. No pneumothorax. Heart/Mediastinum: Unremarkable. No cardiomegaly. Bones/joints: Right shoulder arthroplasty. Degenerative arthritis left shoulder and spine. IMPRESSION: Probable pulmonary vascular congestion Dictated and Authenticated by: Denisha Connors MD. Orderin Kerry Carbajal MD
[2025-11-13] MEDS: Cefuroxime 500 MG TAB 1000 MG PO (16:57)
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
--- NOTE | 2025-11-15 09:18 | W.ED.FU ---
Date of service: 11/15/25 Time of Service: 09:18 Follow Up Plan: Cultures resulted on my shift showing urine culture with Klebsiella pneumoniae. Patient was discharged on cefuroxime mean. Klebsiella sensitive to ampicillin ceftriaxone and cefazolin. Will continue to observe patient on oral antibiotics.
== END 2025-11-13 17:08 | disposition home or self-care (01) ==
PROVIDERS: Emergency Provider Physician Assistant; PCP Legal Medicine
DX: N39.0 Urinary tract infection, site not specified (principal); I77.4 Celiac artery compression syndrome; K55.1 Chronic vascular disorders of intestine
CPT/HCPCS: 99284; 99285; 36416; 82962; 80053; 87077; 93005; 96361; 96365; 96366; 70450; 71046; 74177; 81003; 81015; 83735; 84443; 85025; 87086; 87186; 93010; J0696; J3490